=== PATIENT | female | born 1990 | race Hispanic/Latino ===

== ENCOUNTER 2016-12-22 08:04 | Inpatient (IN) | payer OTHER ==
[2016-12-22] MEDS ORDERED: Ondansetron HCl/PF 4 MG/2 ML Vial ONE (09:03)
[2016-12-22 09:14] LABS: #Eosinphils 0.1 thou/uL (0.0-0.7); #Lymphocytes 1.5 thou/uL (1.20-3.40); #Monocytes 0.4 thou/uL (0.11-0.59); #Neutrophils 8.8 thou/uL (1.40-6.50); %Basophils 0.1 % (0.0-1.0); %Eosinophils 0.6 % (0.0-10.0); %Lymphocytes 13.8 % (21.0-51.0); %Monocytes 3.7 % (0.0-10.0); Hematocrit 44.2 % (36.0-47.0); Red Blood Cell (RBC) Count 4.46 mill/uL (4.20-5.40); White Blood Cell (WBC) Count 10.7 thou/uL (4.8-10.8)
[2016-12-22 09:43] LABS: ALT (SGPT) 20 U/L (8-55); AST (SGOT) 17 U/L (5-34); Alkaline Phosphatase 123 U/L (40-150); Anion Gap 26 mmol/L (10-20); BUN (Urea Nitrogen) 15 mg/dL (7.0-18.7); Bilirubin, Total 0.4 mg/dL (0.2-1.2); Calc. Creatinine Clearance 0 mL/min (70-130); Calcium 9.7 mg/dL (7.8-10.44); Carbon Dioxide 11 mmol/L (22-29); Chloride 104 mmol/L (98-107); Estimated GFR-MDRD 69; Globulin 3.5 g/dL (2.4-3.5); Protein, Total 7.9 g/dL (6.0-8.3)
[2016-12-22] MEDS ORDERED: Insulin Regular 100 UNITS in Sodium Chloride 0.9% 100 ML IVPB SCH (10:30)
[2016-12-22] MEDS ORDERED: Insulin Regular 300 UNITS/3 ML VIAL ONE (10:31)
[2016-12-22 11:29] LABS: Bilirubin Negative (Negative); Blood, Urine Negative (Negative); Glucose, Urine (Dipstick) 500 mg/dL (Negative); Ketone, Urine > or equal to 80 mg/dL (Negative); Nitrite Negative (Negative); Protein, Urine (Dipstick) Negative (Neg-Trace); Urobilinogen 0.2 mg/dL (0.2-1.0)
[2016-12-22] MEDS ORDERED: CCU Electrolyte Replacement 1 EACH IVPB ONE (11:38)
[2016-12-22] MEDS ORDERED: Bisacodyl 5 MG TAB PO PRN (11:38)
[2016-12-22] MEDS ORDERED: Dextrose 5 %-0.45 % NaCl 1,000 ML IV PRN (11:38)
[2016-12-22] MEDS ORDERED: Ondansetron ODT 4 MG TAB PO PRN (11:38)
[2016-12-22] MEDS ORDERED: Sodium Chloride 0.9% 1,000 ML IV PRN ×4 (11:38)
[2016-12-22] MEDS ORDERED: NS 0.9% w/ 20 MEQ KCL 1,000 ML IV PRN ×2 (11:38)
[2016-12-22] MEDS ORDERED: D5 1/2 NS w/20 mEq KCL 1,000 ML IV PRN (11:38)
[2016-12-22] MEDS ORDERED: Ondansetron HCl/PF 4 MG/2 ML Vial IVP PRN (11:38)
[2016-12-22 12:28] LABS: Anion Gap 16 mmol/L (10-20); BUN (Urea Nitrogen) 12 mg/dL (7.0-18.7); Calc. Creatinine Clearance 0 mL/min (70-130); Calcium 8.7 mg/dL (7.8-10.44); Carbon Dioxide 18 mmol/L (22-29); Chloride 112 mmol/L (98-107); Estimated GFR-MDRD Greater than 90
[2016-12-22] MEDS ORDERED: CCU ELECTROLYTE REPLACEMENT PROTOCOL FS PRN (12:37)
[2016-12-22] MEDS ORDERED: Potassium Phosphate 12 MMOL in Sodium Chloride 0.9% 250 ML 250 ML IV PRN (12:37)
[2016-12-22] MEDS ORDERED: Potassium Chloride 20 MEQ TAB PO PRN (12:37)
[2016-12-22] MEDS ORDERED: Potassium Phosphate 15 MMOL in Sodium Chloride 0.9% 250 ML 250 ML IV PRN (12:37)
[2016-12-22] MEDS ORDERED: Magnesium Oxide 400 MG TAB PO PRN ×2 (12:37)
[2016-12-22] MEDS ORDERED: Potassium Phosphate 9 MMOL in Sodium Chloride 0.9% 100 ML IVPB PRN (12:37)
[2016-12-22] MEDS ORDERED: Potassium Chloride 40 MEQ in Sodium Chloride 0.9% 250 ML 250 ML IVPB PRN (12:37)
[2016-12-22] MEDS ORDERED: Potassium Chloride 40 MEQ in Premix Bag 1 BAG IVPB PRN (12:37)
[2016-12-22] MEDS ORDERED: Magnesium 2 GM/NS 0.9% 100 ML 2 GM in Premix Bag 1 BAG IVPB PRN (12:37)
--- NOTE | 2016-12-22 13:20 | HP ---
PRIMARY CARE PHYSICIAN: Rocky ledesma. CHIEF COMPLAINT: Nausea, vomiting, and hyperglycemia. PRIMARY CARE LABELING ASSOCIATE: Dr. Curry at [facility]. HISTORY OF PRESENT ILLNESS: This is a 26-year-old female with past medical history of diab etes mellitus type 1, insulin-dependent, with multiple admissions for DKA, though less frequently ov er the last couple of years. She reports that she has been taking her insulin as prescribed, 22 uni ts of Lantus per day and NovoLog 8 units before each meal. She reports that yesterday after eating some enchilada's, she started having abdominal pain, nausea, and vomiting. She vomited 3-4 times ye sterday, food and mucus, no bile or blood and this morning, she reports that her blood sugar was 500 and she had 1 more episode of vomiting. The patient presented to the emergency room and was found to have a blood sugar of 415 in the emergency room and was also tachycardic. The patient had 2 lite rs of normal saline bolused and then normal saline running at 500 mL per hour after that. She also had 7.5 units of Novolin R IV push and Zofran. The patient's blood sugars now down to the low 100s and she is feeling much better. No further abdominal pain, nausea or vomiting in the emergency room . PAST MEDICAL HISTORY: 1. Diabetes mellitus type 1, insulin-dependent. 2. Depression and anxiety. PAST SURGICAL HISTORY: None. ALLERGIES: No known drug allergies. MEDICATIONS: Lantus 22 units daily, and NovoLog 8 units before each meal. SOCIAL HISTORY: Patient denies tobacco, alcohol, or illicit drug use. FAMILY HISTORY: Diabetes, heart disease and hypertension. REVIEW OF SYSTEMS: Constitutional: No fevers, no chills, no weight changes. Eyes: No double visi on or blurred vision. ENT: No congestion, drainage or sore throat. Cardiovascular: No chest pain , palpitations or racing heart. Pulmonary: No coughing, wheezing or shortness of breath. Gastroin testinal: No diarrhea or constipation. See HPI for positives. Genitourinary: No dysuria or hemat uria. She has not noticed any change in her urine output recently. Musculoskeletal: No muscle ach es or joint pains. Skin: No rashes or other lesions noted. Neurologic: No numbness, tingling or focal weakness. PHYSICAL EXAMINATION: VITAL SIGNS: Blood pressure 102/66, pulse down to 101 after the fluids from 122 on presentation, re spirations 15, temperature 98.5, O2 sat 98% on room air. GENERAL: This is a well-developed, well-nourished female, in no apparent distress. HEENT: Pupils equal, round, and react to light. Oropharynx clear without lesions, erythema or exud ate. She does have moist mucous membranes now. HEART: Regular rate and rhythm, no murmurs, rubs or gallops. LUNGS: Clear to auscultation bilaterally, no wheezes, crackles or rhonchi. NECK: Soft, nontender to palpation, normoactive bowel sounds, no hepatosplenomegaly or other masses . EXTREMITIES: No clubbing, cyanosis or edema. SKIN: No rashes or other lesions noted. NEUROLOGIC: Cranial nerves intact and equal bilaterally. No facial droop. Deep tendon reflexes 2+ in all extremities and strength intact in all extremities. PSYCHIATRIC: Patient is alert and oriented x3. She does have a little bit of a flattened affect. LABORATORY DATA: CBC within normal limits. Complete metabolic panel was notable only for carbon di oxide of 11, anion gap of 26. Her glucose was 398 on a central venous check and now down to 138 per ipherally. Urinalysis had glucose and ketones, but no evidence of infection and her beta hydroxybut yrate was 6.12 in the blood. ASSESSMENT AND PLAN: 1. Diabetic ketoacidosis. The patient's hyperglycemia has resolved with initial insulin bolus, we will hold on insulin drip for now. The patient does state that she has been taking her insulin, so she may have her long-acting insulin still on board, thus this would be unusual for her to get as ac idotic with some insulin. We will check fingerstick blood sugars every hour and start insulin drip if she rebounds. Otherwise, we will give her NovoLog with meals as normal and restart her Lantus wh en she is eating. Patient has gotten a good fluid resuscitation in the emergency room, she may need a little bit more, but we will recheck her basic metabolic panel and keep giving fluids until her a nion gap acidosis resolves. 2. We will replace potassium as this is likely to drop with only being 3.8 initially to prevent hyp okalemia. 3. Gastrointestinal prophylaxis. Put the patient on Pepcid while she remains in the hospital. 4. Deep venous thrombosis prophylaxis. Put the patient on sequential compression devices and TEDs while in bed. 5. CODE STATUS: Patient is FULL CODE. Should she be incapacitated, she states that her medical de cision maker will be her mother, Briana Valenzuela.
[2016-12-22] MEDS: NS 0.9% w/ 20 MEQ KCL 1,000 ML IV SCH ×2 (13:50→15:28)
[2016-12-22 14:03] VITALS: BMI 30.6
[2016-12-22 15:55] LABS: Anion Gap 15 mmol/L (10-20); BUN (Urea Nitrogen) 8 mg/dL (7.0-18.7); Calc. Creatinine Clearance 150 mL/min (70-130); Calcium 7.8 mg/dL (7.8-10.44); Carbon Dioxide 16 mmol/L (22-29); Chloride 114 mmol/L (98-107); Estimated GFR-MDRD Greater than 90
[2016-12-22] MEDS ORDERED: Dextrose 50% Abboject 50 ML SYRINGE IVP PRN (16:12)
[2016-12-22] MEDS ORDERED: Dextrose 5% in Water 1,000 ML IV PRN (16:12)
[2016-12-22] MEDS ORDERED: HumaLOG 300 UNITS/3 ML VIAL SC PRN (16:12)
[2016-12-22] MEDS ORDERED: Acetaminophen 500 MG TAB PO PRN (18:01)
[2016-12-22 20:11] LABS: Anion Gap 15 mmol/L (10-20); BUN (Urea Nitrogen) 7 mg/dL (7.0-18.7); Calc. Creatinine Clearance 124 mL/min (70-130); Calcium 8.5 mg/dL (7.8-10.44); Carbon Dioxide 19 mmol/L (22-29); Chloride 107 mmol/L (98-107); Estimated GFR-MDRD 87
[2016-12-22] MEDS: Insulin Detemir 100 UNITS/ML 8 UNITS in Pre-Filled Syringe 1 EACH SC SCH (20:28)
[2016-12-22] MEDS: Docusate 100 MG CAP PO SCH (20:28)
[2016-12-22] MEDS: Famotidine 20 MG TAB PO SCH (20:28)
[2016-12-22] MEDS ORDERED: FLU VACC QS2017-18 36 mo. & older 0.5 ML SYRINGE IM ONE (21:00)
[2016-12-23 04:34] LABS: #Basophils 0.1 thou/uL (0.0-0.2); #Eosinphils 0.2 thou/uL (0.0-0.7); #Lymphocytes 2.7 thou/uL (1.20-3.40); #Monocytes 0.6 thou/uL (0.11-0.59); #Neutrophils 4.8 thou/uL (1.40-6.50); %Basophils 0.9 % (0.0-1.0); %Eosinophils 1.9 % (0.0-10.0); %Lymphocytes 32.6 % (21.0-51.0); %Monocytes 7.2 % (0.0-10.0); Hematocrit 38.4 % (36.0-47.0); Mean Platelet Volume 9.2 fL (7.4-10.4); Red Blood Cell (RBC) Count 3.89 mill/uL (4.20-5.40); White Blood Cell (WBC) Count 8.4 thou/uL (4.8-10.8)
[2016-12-23 05:02] LABS: Anion Gap 14 mmol/L (10-20); BUN (Urea Nitrogen) 7 mg/dL (7.0-18.7); Calc. Creatinine Clearance 143 mL/min (70-130); Calcium 8.5 mg/dL (7.8-10.44); Carbon Dioxide 19 mmol/L (22-29); Chloride 106 mmol/L (98-107); Estimated GFR-MDRD Greater than 90
[2016-12-23] MEDS: HumaLOG 300 UNITS/3 ML VIAL SC PRN ×2 (05:44→11:55)
[2016-12-23] MEDS: Docusate 100 MG CAP PO SCH (08:05)
[2016-12-23] MEDS: Insulin Detemir 100 UNITS/ML 8 UNITS in Pre-Filled Syringe 1 EACH SC SCH (08:06)
[2016-12-23] MEDS: Famotidine 20 MG TAB PO SCH (08:06)
--- NOTE | 2016-12-23 09:49 | PDOC.PN ---
- Subjective Encounter Start Date: 12/23/16 Encounter Start Time: 09:40 Subjective: Patient without complaint this AM. No more N/V. No abd pain. BS normal. -: Eating well. Ready to go home. Has insulin at home. - Objective Resuscitation Status: Resuscitation Status FULL:Full Resuscitation MAR Reviewed: Yes Vital Signs & Weight: Vital Signs (12 hours) Temp Pulse Resp BP Pulse Ox 12/23/16 08:00 98.8 F 78 16 98 12/23/16 07:06 98.8 F 78 16 97/63 98 12/23/16 04:00 98.6 F 79 18 110/69 97 12/23/16 00:00 98.4 F 76 16 98/58 L 96 Weight Weight 163 lb 2 oz I&O: 12/22/16 12/23/16 12/24/16 06:59 06:59 06:59 Intake Total 1320 Output Total 1300 Balance 20 Result Diagrams: 12/23/16 03:58 12/23/16 03:58 Additional Labs: Accuchecks 12/23/16 12/22/16 12/22/16 05:41 20:28 16:10 POC Glucose 170 H 266 H 104 12/22/16 12/22/16 12/22/16 15:05 13:50 12:23 POC Glucose 108 99 94 12/22/16 11:12 POC Glucose 138 H Phys Exam - Physical Examination Constitutional: NAD HEENT: moist MMs Respiratory: no wheezing, no rales, no rhonchi, clear to auscultation bilateral Cardiovascular: RRR, no significant murmur Gastrointestinal: soft, non-tender, no distention, positive bowel sounds Neurological: non-focal, moves all 4 limbs Psychiatric: A&O x 3 Deviation from normal: mildly flat affect Dx/Plan (1) Diabetic keto-acidosis Code(s): E13.10 - OTH DIABETES MELLITUS WITH KETOACIDOSIS WITHOUT COMA Status : Resolved Comment: Blood sugars normalized this AM. On home insulin. Gap resolved. Eating well. (2) Diabetes mellitus type 1 Status: Chronic - Plan cont current plan of skilled nursing today * . - Discharge Day Encounter end time: 09:55
[2016-12-23 12:26] VITALS: BP 122/74; TEMP 98.6
--- NOTE | 2016-12-23 14:37 | DIS ---
PRIMARY CARE PHYSICIAN: Michael Damian. PRIMARY MANAGER OF CASE: Dr. Curry. DIAGNOSES ON ADMISSION: 1. Diabetic ketoacidosis. 2. Diabetes mellitus type 1, insulin-dependent. DIAGNOSES ON DISCHARGE: 1. Diabetic ketoacidosis, resolved. 2. Diabetes mellitus type 1, insulin-dependent. CONSULTATIONS: None. PROCEDURES: None. SUMMARY OF HOSPITAL COURSE: This is a 26-year-old female with a history of diabetes mellit type 1, admitted multiple times for DKA several years ago, but has not had a lot of episodes rece ntly. She ate some enchiladas the day before admission, started having abdominal pain, nausea, and vomiting. The day of admission, she had nausea and vomiting one more time and noted to have blood s ugars in the 500s, came into the emergency room. Her blood sugars were running in the 400s in the e mergency room, she was tachycardic and acidotic. She was given multiple liters of fluid in the moody gency room along with some IV push and insulin which returned her blood sugar immediately to normal. The patient was put in the hospital overnight. She had IV fluids and potassium. She was able to eat and was transitioned to her home insulin with normal blood sugars this morning, feeling well, no abdominal pain or tenderness on exam and no more nausea or vomiting. She is being discharged home. DISCHARGE MANAGEMENT: Discharged home. Follow up with primary care doctor in 1 week. ACTIVITY: As tolerated. DIET: Diabetic diet. DISCHARGE MEDICATIONS: Resume home medications. 1. NovoLog FlexPen 8 units 3 times a day with meals. 2. Lantus 22 units subcu daily. 3. Risperidone 1 mg at night as needed. 4. Wellbutrin-XL 300 mg every morning. 5. Ambien 5 mg at night as needed. 6. Prozac 20 mg daily.
== END 2016-12-23 15:32 | disposition home or self-care (01) | DRG 639 ==
LOC: ERS 08:04 → IMCU/EMU 10:59
PROVIDERS: ADMIT Emergency Medicine; ATTEND Emergency Medicine
DX: E10.10 Type 1 diabetes mellitus with ketoacidosis without coma (principal); F32.9 Major depressive disorder, single episode, unspecified; Z79.4 Long term (current) use of insulin; F41.9 Anxiety disorder, unspecified
CPT/HCPCS: 36415; 36416; 80048; 80053; 81003; 82010; 85025; 93005; 96361; 96374; 96375; J1815; J2405; J7050

== ENCOUNTER 2017-03-20 15:03 | Inpatient (IN) | payer OTHER ==
[2017-03-20 15:45] LABS: #Basophils 0.1 thou/uL (0.0-0.2); #Eosinphils 0.1 thou/uL (0.0-0.7); #Lymphocytes 1.1 thou/uL (1.20-3.40); #Neutrophils 15.5 thou/uL (1.40-6.50); %Basophils 0.3 % (0.0-1.0); %Eosinophils 0.4 % (0.0-10.0); %Lymphocytes 6.4 % (21.0-51.0); %Monocytes 5.7 % (0.0-10.0); %Neutrophils 87.1 % (42.0-75.0); Hemoglobin 15.4 g/dL (12.0-16.0); Mean Corpuscular HGB CONC 34.1 g/dL (32.0-36.0); Mean Corpuscular Hemoglobin 33.3 pg (27.0-31.0); Mean Corpuscular Volume 97.8 fl (81.0-99.0); Mean Platelet Volume 9.1 fL (7.4-10.4); Platelet Count 313 thou/uL (130-400); RBC Distribution Width 11.8 % (11.5-14.5); Red Blood Cell (RBC) Count 4.61 mill/uL (4.20-5.40); White Blood Cell (WBC) Count 17.8 thou/uL (4.8-10.8)
[2017-03-20 15:57] LABS: Bilirubin Negative (Negative); Blood, Urine Negative (Negative); Clarity CLEAR (Clear); Glucose, Urine (Dipstick) >=1000 mg/dL (Negative); Leukocyte Trace (Negative); Nitrite Negative (Negative); Protein, Urine (Dipstick) 30 mg/dL (Neg-Trace); Specific Gravity, Urine 1.029 (1.002-1.036); Urobilinogen 0.2 mg/dL (0.2-1.0)
[2017-03-20 15:58] LABS: Bacteria/HPF Rare-Few HPF (None Seen); Hyaline Casts/LPF 4-6 HYALINE CAST LPF (0-3 Hyaline); Pathc Cast-AUWi Flag 0.27 (0-2.49); Pregnancy Test - Urine (BHCG) Negative (Negative); Pregu Control Background? CLEAR/WHITE (CLR/WHITE); Pregu Control Bar Appear? YES (CONTROL BAR); RBC/HPF 0-3 HPF (0-3); Specific Gravity 1.029 (1.002-1.036); Squamous Epithelial 0-3 HPF (0-3)
[2017-03-20 16:10] LABS: ALT (SGPT) 16 U/L (8-55); AST (SGOT) 15 U/L (5-34); Albumin 4.8 g/dL (3.5-5.0); Alkaline Phosphatase 123 U/L (40-150); BUN (Urea Nitrogen) 11 mg/dL (7.0-18.7); Bilirubin, Total 0.6 mg/dL (0.2-1.2); Calc. Creatinine Clearance 0 mL/min (70-130); Calcium 9.5 mg/dL (7.8-10.44); Chloride 109 mmol/L (98-107); Estimated GFR-MDRD 47; Globulin 3.7 g/dL (2.4-3.5); Glucose 252 mg/dL (70-105); Potassium 3.3 mmol/L (3.5-5.1); Protein, Total 8.5 g/dL (6.0-8.3); Sodium 137 mmol/L (136-145)
[2017-03-20 16:14] LABS: CKMB 0.4 ng/mL (0-6.6); Carbon Dioxide Less than 8 mmol/L (22-29); Troponin I 0.014 ng/mL (< 0.028)
[2017-03-20] MEDS ORDERED: Ondansetron HCl/PF 4 MG/2 ML Vial ONE (16:46)
[2017-03-20] MEDS ORDERED: Insulin Regular 100 units/100 ml in NS IVPB SCH (17:00)
[2017-03-20] MEDS ORDERED: CCU Electrolyte Replacement 1 EACH IVPB ONE (17:01)
[2017-03-20] MEDS ORDERED: Acetaminophen 325 MG TAB PO PRN (17:01)
[2017-03-20] MEDS ORDERED: Sodium Chloride 0.9% 1,000 ML IV PRN ×4 (17:01)
[2017-03-20] MEDS ORDERED: NS 0.9% w/ 20 MEQ KCL 1,000 ML IV PRN ×2 (17:01)
[2017-03-20] MEDS ORDERED: Acetaminophen 650 MG Suppository PR PRN (17:01)
[2017-03-20] MEDS ORDERED: Dextrose 5 %-0.45 % NaCl 1,000 ML IV PRN (17:01)
[2017-03-20] MEDS ORDERED: Ondansetron HCl/PF 4 MG/2 ML Vial IVP PRN (17:01)
[2017-03-20] MEDS ORDERED: Potassium Chloride 40 MEQ in Sodium Chloride 0.9% 250 ML 250 ML IVPB PRN (17:11)
[2017-03-20] MEDS ORDERED: Magnesium Oxide 400 MG TAB PO PRN ×2 (17:11)
[2017-03-20] MEDS ORDERED: CCU ELECTROLYTE REPLACEMENT PROTOCOL FS PRN (17:11)
[2017-03-20] MEDS ORDERED: Magnesium 2 GM/NS 0.9% 100 ML 2 GM in Premix Bag 1 BAG IVPB PRN (17:11)
[2017-03-20] MEDS ORDERED: Potassium Phosphate 9 MMOL in Sodium Chloride 0.9% 100 ML IVPB PRN (17:11)
[2017-03-20] MEDS ORDERED: Potassium Chloride 20 MEQ TAB PO PRN (17:11)
[2017-03-20] MEDS ORDERED: Potassium Phosphate 15 MMOL in Sodium Chloride 0.9% 250 ML 250 ML IV PRN (17:11)
[2017-03-20] MEDS ORDERED: Potassium Chloride 40 MEQ in Premix Bag 1 BAG IVPB PRN (17:11)
[2017-03-20] MEDS ORDERED: Potassium Phosphate 12 MMOL in Sodium Chloride 0.9% 250 ML 250 ML IV PRN (17:11)
[2017-03-20] MEDS ORDERED: cefTRIAXone\\ROCEPHIN 1 GM in Sodium Chloride 0.9% 100 ML IVPB SCH (17:30)
[2017-03-20 17:48] LABS: Anion Gap 24 mmol/L (10-20); BUN (Urea Nitrogen) 11 mg/dL (7.0-18.7); Calc. Creatinine Clearance 0 mL/min (70-130); Calcium 9.2 mg/dL (7.8-10.44); Chloride 109 mmol/L (98-107); Estimated GFR-MDRD 57; Glucose 221 mg/dL (70-105); Potassium 3.6 mmol/L (3.5-5.1); Sodium 137 mmol/L (136-145)
--- NOTE | 2017-03-20 17:49 | HP ---
PRIMARY CARE PHYSICIAN: Torito Singh M.D. CHIEF COMPLAINT: Vomiting and abdominal pain. HISTORY OF PRESENT ILLNESS: Ms. Valenzuela is a pleasant 26-year-old lady who was seen at [facility] on 03/20/2017. She has a history of diabetes mellitus type 1 and takes insulin at home. She reports that she is compliant with her insulin. She reports that she was doing well u ntil yesterday. Today morning, she developed nausea and vomiting. She also reports pain in the uppe r abdomen, dull, nonradiating, patient is unable to rate the pain, and she is unable to recall any as sociated symptoms other than nausea and vomiting. She denies fevers or chills. She denies chest favian n and shortness of breath. She also denies dysuria. PAST MEDICAL HISTORY: Significant for diabetes mellitus type 1, depression and anxiety. PAST SURGICAL HISTORY: None. ALLERGIES: No known drug allergies. MEDICATIONS: The patient is unsure regarding some of her medications, but appears to be taking Lantu s insulin 22 units daily and NovoLog insulin 8 units before each meal. SOCIAL HISTORY: The patient denies tobacco use, alcohol use or recreational drug use. FAMILY HISTORY: Significant for diabetes mellitus in her paternal grandparents. PHYSICAL EXAMINATION: GENERAL: On examination, Ms. Valenzuela is awake and alert, not in acute distress. VITAL SIGNS: Temperature is 99.7 degrees Fahrenheit, blood pressure is 136/90, pulse is 161. She is breathing at rate of 18 and saturating 99% on room air. EYES: No scleral icterus. No conjunctival pallor. ENT: Dry mucosal membranes, no oropharyngeal erythema or exudates. NECK: Supple, nontender, normal range of movement. Trachea is midline. RESPIRATORY: Accessory muscles of breathing are not active. Chest wall movements are symmetric bila terally. LUNGS: Clear to auscultation without wheeze, rhonchi or crepitations. CARDIOVASCULAR: S1 and S2 are heard, tachycardic and regular. Peripheral pulses palpable. No carot id bruit, no pericardial rub. ABDOMEN: Soft, nontender, bowel sounds heard, no hepatomegaly, no splenomegaly. NEUROLOGIC: Cranial nerves II-XII are intact. Deep tendon reflexes are 2+. MUSCULOSKELETAL: Power is 5/5 in all 4 extremities. SKIN: No rashes or subcutaneous nodules. LYMPHATIC: No cervical lymphadenopathy. PSYCHIATRIC: Normal mood, normal affect, patient is oriented to person, place, and time. IMAGING DATA AND LABORATORY DATA: Ms. Valenzuela's labs and investigations were reviewed. She had an electrocardiogram done, which shows sinus tachycardia. She has leukocytosis with 17,800 white cells, of which 87% are neutrophils, normal hemoglobin, normal platelet count, normal sodium of 137, decrea sed potassium of 3.3, elevated chloride of 109, carbon dioxide less than 8, creatinine elevated at 1. 35, unremarkable liver profile, elevated beta hydroxybutyrate of 5.99. Urinalysis positive for prote in, glucose, ketones, and trace leukocyte esterase. Urine test is negative. ASSESSMENT AND PLAN: Ms. Valenzuela is a pleasant 26-year-old lady who was seen at [facility] on 03/20/2017. Her problem list includes: 1. Diabetic ketoacidosis: She is presenting with diabetic ketoacidosis. She will be admitted to [facility] and treated with intravenous fluids, electrolyte replacement and intravenous insulin. Mayelin ology unclear at this time. She reports that she is compliant with her insulin. It is possible that this is triggered by urinary tract infection. We will also get chest x-ray to rule out any pulmonar y infection. The patient has been started on ceftriaxone, which I will continue. 2. Urinary tract infection: Suspected, although urinalysis is positive only for small amount of april kocyte esterase. We will continue her on ceftriaxone. 3. Acute kidney injury: Likely secondary to diabetic ketoacidosis. Recheck creatinine. 4. Hypokalemia: Her electrolytes will be checked and replaced per DKA protocol. 5. Anxiety and depression: Her home medications can be resumed once clarified. Many thanks for allowing me to participate in your patient's care. Please feel free to contact me wi th any questions or concerns. LEVEL OF RISK: Moderate. LEVEL OF COMPLEXITY: Moderate.
[2017-03-20 18:01] LABS: Magnesium 1.9 mg/dL (1.6-2.6)
[2017-03-20 18:02] LABS: Carbon Dioxide 8 mmol/L (22-29)
--- NOTE | 2017-03-20 18:07 | RAD ---
TWO VIEW CHEST: 03/20/17 HISTORY: Cough. Assess for lung infiltrates. COMPARISON: 08/12/12 The lung pierre are clear. Heart and mediastinum are unremarkable. IMPRESSION: No acute finding. POS: [facility]
[2017-03-20] MEDS: D5 1/2 NS w/20 mEq KCL 1,000 ML IV PRN (21:27)
[2017-03-20 21:33] VITALS: BMI 26.1
[2017-03-20 21:52] LABS: Anion Gap 24 mmol/L (10-20); BUN (Urea Nitrogen) 10 mg/dL (7.0-18.7); Calc. Creatinine Clearance 79 mL/min (70-130); Calcium 9.1 mg/dL (7.8-10.44); Chloride 109 mmol/L (98-107); Estimated GFR-MDRD 62; Glucose 292 mg/dL (70-105); Potassium 3.2 mmol/L (3.5-5.1); Sodium 138 mmol/L (136-145)
[2017-03-20 21:55] LABS: Carbon Dioxide 8 mmol/L (22-29)
[2017-03-21] MEDS: D5 1/2 NS w/20 mEq KCL 1,000 ML IV PRN ×2 (01:27→05:54)
[2017-03-21 01:30] LABS: Anion Gap 14 mmol/L (10-20); BUN (Urea Nitrogen) 9 mg/dL (7.0-18.7); Calc. Creatinine Clearance 90 mL/min (70-130); Calcium 8.7 mg/dL (7.8-10.44); Carbon Dioxide 14 mmol/L (22-29); Chloride 115 mmol/L (98-107); Estimated GFR-MDRD 72; Glucose 153 mg/dL (70-105); Potassium 3.6 mmol/L (3.5-5.1); Sodium 139 mmol/L (136-145)
[2017-03-21 04:41] LABS: #Basophils 0.1 thou/uL (0.0-0.2); #Eosinphils 0.1 thou/uL (0.0-0.7); #Monocytes 1.3 thou/uL (0.11-0.59); #Neutrophils 8.2 thou/uL (1.40-6.50); %Basophils 0.7 % (0.0-1.0); %Eosinophils 0.9 % (0.0-10.0); %Lymphocytes 23.8 % (21.0-51.0); %Monocytes 10.5 % (0.0-10.0); %Neutrophils 64.1 % (42.0-75.0); Hemoglobin 12.5 g/dL (12.0-16.0); Mean Corpuscular HGB CONC 34.2 g/dL (32.0-36.0); Mean Corpuscular Hemoglobin 33.5 pg (27.0-31.0); Mean Corpuscular Volume 97.9 fl (81.0-99.0); Mean Platelet Volume 9.9 fL (7.4-10.4); Platelet Count 243 thou/uL (130-400); RBC Distribution Width 11.8 % (11.5-14.5); Red Blood Cell (RBC) Count 3.72 mill/uL (4.20-5.40); White Blood Cell (WBC) Count 12.7 thou/uL (4.8-10.8)
[2017-03-21 04:51] LABS: Anion Gap 13 mmol/L (10-20); BUN (Urea Nitrogen) 8 mg/dL (7.0-18.7); Calc. Creatinine Clearance 102 mL/min (70-130); Calcium 8.6 mg/dL (7.8-10.44); Carbon Dioxide 13 mmol/L (22-29); Chloride 115 mmol/L (98-107); Estimated GFR-MDRD 83; Glucose 155 mg/dL (70-105); Sodium 137 mmol/L (136-145)
[2017-03-21] MEDS: Enoxaparin Sodium 40 MG/0.4 ML SYRINGE SC SCH (09:41)
[2017-03-21] MEDS: Insulin Detemir 100 UNITS/ML 22 UNITS in Pre-Filled Syringe 1 EACH SC SCH (09:42)
[2017-03-21] MEDS ORDERED: Eucerin (Mineral Oil/Petrolatum,White) 30 gm Jar TOP PRN (09:43)
[2017-03-21] MEDS ORDERED: Senokot 8.6 MG TAB PO PRN (09:43)
[2017-03-21] MEDS ORDERED: Ondansetron ODT 4 MG TAB PO PRN (09:43)
[2017-03-21] MEDS ORDERED: Milk Of Magnesia 30 ML UDCUP PO PRN (09:43)
[2017-03-21] MEDS ORDERED: Sodium Chloride 0.65% Nasal 44 ML BOT EA NARE PRN (09:43)
[2017-03-21] MEDS ORDERED: Dextrose 5% in Water 1,000 ML IV PRN (09:43)
[2017-03-21] MEDS ORDERED: Artificial Tears 18 DROP/0.9 ML EA EYE PRN (09:43)
[2017-03-21] MEDS ORDERED: Dextrose 50% Abboject 50 ML SYRINGE SLOW IVP PRN (09:43)
[2017-03-21] MEDS ORDERED: Loperamide HCl 2 MG CAP PO PRN (09:43)
[2017-03-21] MEDS ORDERED: Loratadine 10 MG TAB PO PRN (09:43)
[2017-03-21] MEDS ORDERED: Chloraseptic Spray 180 ml Bottle PO PRN (09:43)
[2017-03-21] MEDS ORDERED: Diabetic Tussin 200 MG/10 ML UDCUP PO PRN (09:43)
[2017-03-21] MEDS ORDERED: hydrALAZINE 20 MG/ML VIAL SLOW IVP PRN (09:43)
[2017-03-21] MEDS ORDERED: Temazepam 15 MG CAP PO PRN (09:43)
[2017-03-21] MEDS ORDERED: HYDROcodone/Acetaminophen 5/325 mg Tablet PO PRN (09:43)
[2017-03-21] MEDS ORDERED: Mag-Al 1200 mg/1200 mg/30 ML UDCUP PO PRN (09:43)
--- NOTE | 2017-03-21 09:47 | PDOC.PN ---
- Subjective Encounter Start Date: 03/21/17 Encounter Start Time: 09:10 -: old records requested/rev Patient seen and examined. No new complaints. No overnight events no nausea and vomiting, doing well, no dyspnea, no abdominal pain - Objective MAR Reviewed: Yes Vital Signs & Weight: Vital Signs (12 hours) Temp Pulse Resp BP Pulse Ox 03/21/17 07:57 98.8 F 99 21 H 123/72 99 03/21/17 04:00 98.5 F 103 H 16 116/74 99 03/21/17 00:00 98.5 F 103 H 16 116/74 99 03/20/17 23:34 98.7 F 120 H 16 98 I&O: 03/20/17 03/21/17 03/22/17 06:59 06:59 06:59 Intake Total 2389 252 Output Total 900 Balance 1489 252 Result Diagrams: 03/21/17 03:33 03/21/17 03:33 Additional Labs: Accuchecks 03/21/17 03/21/17 03/21/17 08:59 08:03 07:07 POC Glucose 234 H 198 H 188 H 03/21/17 03/21/17 03/21/17 06:04 05:07 04:20 POC Glucose 144 H 132 H 147 H 03/21/17 03/21/17 03/21/17 03:06 02:09 01:23 POC Glucose 127 H 100 151 H 03/21/17 03/20/17 03/20/17 00:17 23:02 22:00 POC Glucose 171 H 225 H 235 H 03/20/17 21:05 POC Glucose 243 H Phys Exam - Physical Examination Constitutional: NAD HEENT: PERRLA, moist MMs, sclera anicteric Neck: no JVD, supple Respiratory: no wheezing, no rales, no rhonchi Cardiovascular: RRR, no significant murmur, no rub Gastrointestinal: soft, non-tender, no distention, positive bowel sounds Musculoskeletal: no edema, pulses present Neurological: non-focal, normal sensation, moves all 4 limbs Lymphatic: no nodes Psychiatric: normal affect, A&O x 3 Skin: no rash, normal turgor Dx/Plan (1) Abnormal blood electrolyte level Code(s): E87.8 - OTH DISORDERS OF ELECTROLYTE AND FLUID BALANCE, NEC Status: Resolved (2) Acute renal failure Status: Resolved (3) DKA, type 1 Code(s): E10.10 - TYPE 1 DIABETES MELLITUS WITH KETOACIDOSIS WITHOUT COMA Status: Resolved (4) Dehydration Code(s): E86.0 - DEHYDRATION Status: Resolved (5) Anxiety and depression Code(s): F41.8 - OTHER SPECIFIED ANXIETY DISORDERS Status: Chronic (6) Diabetes mellitus type 1 Status: Chronic - Plan cont current plan of care, continue antibiotics * will start her home medication for diabetes * will DC insulin drip * continue slow IVF today * start diabetic diet * repeat labs tomorrow * transfer to medical * medication reviewed as below * symptomatic treatment. Review of Systems - Review of Systems ENT: negative: Ear Pain, Ear Discharge, Nose Pain, Nose Discharge, Nose Congestion, Mouth Pain, Mouth Swelling, Throat Pain, Throat Swelling, Other Respiratory: negative: Cough, Dry, Shortness of Breath, Hemoptysis, SOB with Excertion, Pleuritic Pain, Sputum, Wheezing Cardiovascular: negative: chest pain, palpitations, orthopnea, paroxysmal nocturnal dyspnea, edema, light headedness, other Gastrointestinal: negative: Nausea, Vomiting, Abdominal Pain, Diarrhea, Constipation, Melena, Hematochezia, Other Genitourinary: negative: Dysuria, Frequency, Incontinence, Hematuria, Retention , Other Musculoskeletal: negative: Neck Pain, Shoulder Pain, Arm Pain, Back Pain, Hand Pain, Leg Pain, Foot Pain, Other Skin: negative: Rash, Lesions, Juanito, Bruising, Other - Medications/Allergies Allergies/Adverse Reactions: Allergies Allergy/AdvReac Type Severity Reaction Status Date / Time No Known Drug Allergies Allergy Verified 07/28/13 22:11 Medications: Current Medications Acetaminophen (Tylenol) 650 mg PO Q4H PRN PRN Reason: Headache/Fever or Pain Hydrocodone Bitart/Acetaminophen ([place] 5/325) 1 tab PO Q4H PRN PRN Reason: Moderate Pain (4-6) Al Hydroxide/Mg Hydroxide (Maalox) 15 ml PO Q4H PRN PRN Reason: Heartburn or Indigestion Artificial Tears (Tears Naturale) 0 drop EA EYE PRN PRN PRN Reason: Dry Eyes Dextrose/Water (Dextrose 50%) 25 gm SLOW IVP PRN PRN PRN Reason: Hypoglycemia Enoxaparin Sodium (Lovenox) 40 mg SC 0900 [facility] Last Admin: 03/21/17 09:41 Dose: 40 mg Famotidine (Pepcid) 20 mg PO BID [facility] Glucagon (Glucagon) 1 mg IM PRN PRN PRN Reason: Hypoglycemia Guaifenesin (Robitussin Sf) 200 mg PO Q4H PRN PRN Reason: Cough Hydralazine HCl (Apresoline) 10 mg SLOW IVP Q4H PRN PRN Reason: Systolic BP > 180 Ceftriaxone Sodium 1 gm/ (Syringe 0.4 ml/ Sterile Water) 10 mls @ 120 mls/hr SLOW IVP 1700 [facility] Insulin Detemir 22 units/ (Miscellaneous Medication) 0.22 mls @ 0 mls/hr SC QAM [facility] Last Admin: 03/21/17 09:42 Dose: 0.22 mls Potassium Chloride/Sodium Chloride (1/2 Ns W/Kcl 20 Meq) 1,000 mls @ 100 mls/ hr IV .Q10H [facility] Dextrose/Water (D5w) 1,000 mls @ 0 mls/hr IV .Q0M PRN; As Directed PRN Reason: Hypoglycemia Insulin Human Lispro (Humalog) 8 units SC TID-WM [facility]IZABETH Insulin Human Lispro (Humalog) 0 units SC .MODERATE SLIDING SC PRN PRN Reason: Moderate Correctional Scale Insulin Human Lispro (Humalog) 0 units SC .BEDTIME SLIDING SC PRN PRN Reason: Bedtime Correctional Scale Loperamide HCl (Imodium) 2 mg PO PRN PRN PRN Reason: Diarrhea/Loose Stools Loratadine (Claritin) 10 mg PO DAILYPRN PRN PRN Reason: Sinus Symptoms Magnesium Hydroxide (Milk Of Magnesium) 30 ml PO DAILYPRN PRN PRN Reason: Constipation Mineral Oil/White Petrolatum (Eucerin Cream) 0 gm TOP BIDPRN PRN PRN Reason: Dry Skin Ondansetron HCl (Zofran Odt) 4 mg PO Q6H PRN PRN Reason: Nausea/Vomiting Phenol (Chloraseptic [place] 180 Ml Bot) 0 ml PO PRN PRN PRN Reason: Sore Throat Senna (Senokot) 2 tab PO HSPRN PRN PRN Reason: Constipation Sodium Chloride ([place] Nasal [place] 0.65%) 0 ml EA NARE QIDPRN PRN PRN Reason: Nasal Congestion Temazepam (Restoril) 15 mg PO HSPRN PRN PRN Reason: Insomnia
[2017-03-21] MEDS: HumaLOG 300 UNITS/3 ML VIAL SC SCH ×3 (11:59→21:24)
[2017-03-21] MEDS: 1/2 NS w/KCL 20 mEq 1,000 ML IV SCH ×2 (13:27→23:00)
[2017-03-21] MEDS: cefTRIAXone\\ROCEPHIN 1 GM, Syringe 0.4 ML in Sterile Water 9.6 ML SLOW IVP SCH (17:14)
[2017-03-21] MEDS: Famotidine 20 MG TAB PO SCH (21:19)
[2017-03-21] MEDS: HumaLOG 300 UNITS/3 ML VIAL SC PRN (21:25)
[2017-03-22 05:51] LABS: #Basophils 0.1 thou/uL (0.0-0.2); #Eosinphils 0.1 thou/uL (0.0-0.7); #Lymphocytes 1.7 thou/uL (1.20-3.40); #Monocytes 0.6 thou/uL (0.11-0.59); #Neutrophils 5.2 thou/uL (1.40-6.50); %Basophils 0.8 % (0.0-1.0); %Eosinophils 0.8 % (0.0-10.0); %Lymphocytes 22.9 % (21.0-51.0); %Monocytes 7.2 % (0.0-10.0); %Neutrophils 68.3 % (42.0-75.0); Mean Corpuscular HGB CONC 33.6 g/dL (32.0-36.0); Mean Corpuscular Hemoglobin 33.1 pg (27.0-31.0); Mean Corpuscular Volume 98.5 fl (81.0-99.0); Platelet Count 220 thou/uL (130-400); RBC Distribution Width 11.7 % (11.5-14.5); Red Blood Cell (RBC) Count 3.62 mill/uL (4.20-5.40); White Blood Cell (WBC) Count 7.6 thou/uL (4.8-10.8)
[2017-03-22] MEDS: 1/2 NS w/KCL 20 mEq 1,000 ML IV SCH ×3 (05:54→21:23)
[2017-03-22] MEDS: HumaLOG 300 UNITS/3 ML VIAL SC PRN ×2 (05:54→21:25)
[2017-03-22 06:54] LABS: Anion Gap 12 mmol/L (10-20); BUN (Urea Nitrogen) 6 mg/dL (7.0-18.7); Calc. Creatinine Clearance 153 mL/min (70-130); Calcium 8.6 mg/dL (7.8-10.44); Carbon Dioxide 23 mmol/L (22-29); Cardiac Risk 4.8 (Less than 4.5); Chloride 107 mmol/L (98-107); Cholesterol 157 mg/dl (< 200 Desired); Estimated GFR-MDRD Greater than 90; Glucose 224 mg/dL (70-105); HDL Cholesterol 33 mg/dL (>60 Neg Risk); LDL Cholesterol, Calculated 113 mg/dL; Magnesium 1.5 mg/dL (1.6-2.6); Phosphorus 2.8 mg/dL (2.3-4.7); Potassium 3.4 mmol/L (3.5-5.1); Sodium 139 mmol/L (136-145); Triglycerides 53 mg/dL (Less than 150)
[2017-03-22] MEDS: Famotidine 20 MG TAB PO SCH ×2 (08:44→21:11)
[2017-03-22] MEDS: Enoxaparin Sodium 40 MG/0.4 ML SYRINGE SC SCH (08:44)
[2017-03-22] MEDS: Insulin Detemir 100 UNITS/ML 22 UNITS in Pre-Filled Syringe 1 EACH SC SCH (08:44)
[2017-03-22] MEDS: HumaLOG 300 UNITS/3 ML VIAL SC SCH ×3 (08:45→17:34)
[2017-03-22] MEDS ORDERED: Potassium Chloride 20 MEQ TAB PO SCH (09:45)
[2017-03-22] MEDS ORDERED: Magnesium 2 GM/NS 0.9% 100 ML 2 GM in Premix Bag 1 BAG IVPB SCH (10:00)
[2017-03-22] MEDS: cefTRIAXone\\ROCEPHIN 1 GM, Syringe 0.4 ML in Sterile Water 9.6 ML SLOW IVP SCH (17:32)
--- NOTE | 2017-03-22 21:50 | PDOC.PN ---
- Subjective Encounter Start Date: 03/22/17 Encounter Start Time: 13:30 Patient seen and examined. No overnight events. Feels gen weak with low grade fever - Objective MAR Reviewed: Yes Vital Signs & Weight: Vital Signs (12 hours) Temp Pulse Resp BP Pulse Ox 03/22/17 16:55 99.0 F 120 H 18 125/82 98 03/22/17 11:33 99.9 F H 105 H 16 127/86 96 Weight Weight 148 lb I&O: 03/21/17 03/22/17 03/23/17 06:59 06:59 06:59 Intake Total 2389 252 Output Total 900 Balance 1489 252 Result Diagrams: 03/23/17 05:29 03/23/17 05:29 Additional Labs: Accuchecks 03/22/17 03/22/17 03/22/17 16:21 11:30 05:16 POC Glucose 222 H 103 227 H 03/22/17 00:49 POC Glucose 115 H Phys Exam - Physical Examination Constitutional: NAD Respiratory: no wheezing, no rhonchi Cardiovascular: RRR, no rub Gastrointestinal: soft, non-tender, positive bowel sounds Musculoskeletal: no edema Dx/Plan - Plan DVT proph w/SCDs IMPRESSION: 1. DKA - improving 2. UTI - on Atbx, No cultures sent 3. DM type 1 4. ANGELINA 5. Anxiety/Depression / Hypokalemia PLAN: * Still has low grade fever * Will cont Atbx * Ketones still elevated * Cont IVF * Cont Levemir with sliding scale * Possible dc in AM. Laboratory Tests 03/22/17 05:20 B-Hydroxybutyrate 2.57 H Review of Systems - Review of Systems Respiratory: negative: Cough, Dry, Shortness of Breath, Hemoptysis, SOB with Excertion, Pleuritic Pain, Sputum, Wheezing Cardiovascular: negative: chest pain, palpitations, orthopnea, paroxysmal nocturnal dyspnea, edema, light headedness Gastrointestinal: negative: Nausea, Vomiting, Abdominal Pain, Diarrhea, Constipation, Melena, Hematochezia - Medications/Allergies Allergies/Adverse Reactions: Allergies Allergy/AdvReac Type Severity Reaction Status Date / Time No Known Drug Allergies Allergy Verified 07/28/13 22:11 Medications: Current Medications Acetaminophen (Tylenol) 650 mg PO Q4H PRN PRN Reason: Headache/Fever or Pain Hydrocodone Bitart/Acetaminophen ([place] 5/325) 1 tab PO Q4H PRN PRN Reason: Moderate Pain (4-6) Al Hydroxide/Mg Hydroxide (Maalox) 15 ml PO Q4H PRN PRN Reason: Heartburn or Indigestion Artificial Tears (Tears Naturale) 0 drop EA EYE PRN PRN PRN Reason: Dry Eyes Dextrose/Water (Dextrose 50%) 25 gm SLOW IVP PRN PRN PRN Reason: Hypoglycemia Enoxaparin Sodium (Lovenox) 40 mg SC 0900 [facility] Last Admin: 03/22/17 08:44 Dose: 40 mg Famotidine (Pepcid) 20 mg PO BID [facility] Last Admin: 03/22/17 21:11 Dose: 20 mg Glucagon (Glucagon) 1 mg IM PRN PRN PRN Reason: Hypoglycemia Guaifenesin (Robitussin Sf) 200 mg PO Q4H PRN PRN Reason: Cough Hydralazine HCl (Apresoline) 10 mg SLOW IVP Q4H PRN PRN Reason: Systolic BP > 180 Ceftriaxone Sodium 1 gm/ (Syringe 0.4 ml/ Sterile Water) 10 mls @ 120 mls/hr SLOW IVP 1700 [facility] Last Admin: 03/22/17 17:32 Dose: 10 mls Insulin Detemir 22 units/ (Miscellaneous Medication) 0.22 mls @ 0 mls/hr SC QAM [facility] Last Admin: 03/22/17 08:44 Dose: 0.22 mls Potassium Chloride/Sodium Chloride (1/2 Ns W/Kcl 20 Meq) 1,000 mls @ 100 mls/ hr IV .Q10H [facility] Last Admin: 03/22/17 21:23 Dose: 1,000 mls Dextrose/Water (D5w) 1,000 mls @ 0 mls/hr IV .Q0M PRN; As Directed PRN Reason: Hypoglycemia Insulin Human Lispro (Humalog) 8 units SC TID-WM [facility] Last Admin: 03/22/17 17:34 Dose: 8 unit Insulin Human Lispro (Humalog) 0 units SC .MODERATE SLIDING SC PRN PRN Reason: Moderate Correctional Scale Last Admin: 03/22/17 05:54 Dose: 4 unit Insulin Human Lispro (Humalog) 0 units SC .BEDTIME SLIDING SC PRN PRN Reason: Bedtime Correctional Scale Last Admin: 03/22/17 21:25 Dose: 3 unit Loperamide HCl (Imodium) 2 mg PO PRN PRN PRN Reason: Diarrhea/Loose Stools Loratadine (Claritin) 10 mg PO DAILYPRN PRN PRN Reason: Sinus Symptoms Magnesium Hydroxide (Milk Of Magnesium) 30 ml PO DAILYPRN PRN PRN Reason: Constipation Mineral Oil/White Petrolatum (Eucerin Cream) 0 gm TOP BIDPRN PRN PRN Reason: Dry Skin Ondansetron HCl (Zofran Odt) 4 mg PO Q6H PRN PRN Reason: Nausea/Vomiting Phenol (Chloraseptic [place] 180 Ml Bot) 0 ml PO PRN PRN PRN Reason: Sore Throat Senna (Senokot) 2 tab PO HSPRN PRN PRN Reason: Constipation Sodium Chloride ([place] Nasal [place] 0.65%) 0 ml EA NARE QIDPRN PRN PRN Reason: Nasal Congestion Sodium Chloride (Flush - Normal Saline) 10 ml IVF Q12HR [facility] Last Admin: 03/22/17 08:44 Dose: 10 ml Sodium Chloride (Flush - Normal Saline) 10 ml IVF PRN PRN PRN Reason: Saline Flush Temazepam (Restoril) 15 mg PO HSPRN PRN PRN Reason: Insomnia
[2017-03-23 00:26] VITALS: TEMP 98.9
[2017-03-23 05:58] LABS: #Basophils 0.1 thou/uL (0.0-0.2); #Eosinphils 0.1 thou/uL (0.0-0.7); #Lymphocytes 2.3 thou/uL (1.20-3.40); #Monocytes 0.7 thou/uL (0.11-0.59); #Neutrophils 3.2 thou/uL (1.40-6.50); %Basophils 1.1 % (0.0-1.0); %Eosinophils 1.2 % (0.0-10.0); %Lymphocytes 36.2 % (21.0-51.0); %Neutrophils 50.5 % (42.0-75.0); Hemoglobin 11.3 g/dL (12.0-16.0); Mean Corpuscular HGB CONC 34.1 g/dL (32.0-36.0); Mean Corpuscular Hemoglobin 33.5 pg (27.0-31.0); Mean Corpuscular Volume 98.1 fl (81.0-99.0); Mean Platelet Volume 9.5 fL (7.4-10.4); Platelet Count 199 thou/uL (130-400); RBC Distribution Width 11.6 % (11.5-14.5); Red Blood Cell (RBC) Count 3.36 mill/uL (4.20-5.40); White Blood Cell (WBC) Count 6.3 thou/uL (4.8-10.8)
[2017-03-23 06:15] LABS: Anion Gap 9 mmol/L (10-20); BUN (Urea Nitrogen) 5 mg/dL (7.0-18.7); Calc. Creatinine Clearance 146 mL/min (70-130); Calcium 8.7 mg/dL (7.8-10.44); Carbon Dioxide 29 mmol/L (22-29); Chloride 106 mmol/L (98-107); Estimated GFR-MDRD Greater than 90; Glucose 270 mg/dL (70-105); Magnesium 1.8 mg/dL (1.6-2.6); Potassium 3.5 mmol/L (3.5-5.1); Sodium 140 mmol/L (136-145)
[2017-03-23] MEDS: HumaLOG 300 UNITS/3 ML VIAL SC PRN (06:22)
[2017-03-23 08:43] VITALS: BP 135/86
[2017-03-23] MEDS: Famotidine 20 MG TAB PO SCH (09:29)
[2017-03-23] MEDS: Enoxaparin Sodium 40 MG/0.4 ML SYRINGE SC SCH (09:29)
[2017-03-23] MEDS: Insulin Detemir 100 UNITS/ML 22 UNITS in Pre-Filled Syringe 1 EACH SC SCH (09:29)
[2017-03-23] MEDS: HumaLOG 300 UNITS/3 ML VIAL SC SCH ×2 (09:30→12:29)
[2017-03-23] MEDS: 1/2 NS w/KCL 20 mEq 1,000 ML IV SCH (16:23)
[2017-03-23] MEDS: cefTRIAXone\\ROCEPHIN 1 GM, Syringe 0.4 ML in Sterile Water 9.6 ML SLOW IVP SCH (16:24)
--- NOTE | 2017-03-23 17:11 | DIS ---
DATE OF DISCHARGE: 03/23/2017 DISCHARGE DISPOSITION: Home. FOLLOWUP: Follow up with primary care physician at [facility] in 1 week. ALLERGIES: No known drug allergies. DISCHARGE MEDICATIONS: 1. Bactrim 1 tablet b.i.d. for the next 5 days. 2. Other home medications were resumed. The patient was seen on the day of discharge, denies any new complaints. No chest pain, shortness of breath, palpitations. BRIEF HOSPITAL COURSE: The patient is a 26-year-old female with diabetes mellitus type 1, p resented to the hospital with abdominal pain and vomiting. Her workup was consistent with diabetic k etoacidosis along with urinary tract infection. She was placed on diabetic ketoacidosis protocol wit h insulin drip and IV fluids along with empiric antibiotics. The antibiotics has been changed to Joon trim. She appears stable for discharge. Ketone on admission was 5.99 and at discharge is 1.03. WBC on admission was 17.8 and at discharge is 6.3. She was extensively counseled on prevention of UTIs as well as diabetes mellitus type 1. FINAL DIAGNOSES: 1. Diabetic ketoacidosis. 2. Diabetes mellitus type 1. 3. Urinary tract infection. 4. Acute kidney injury with a maximum creatinine of 1.35 on admission. 5. Anxiety and depression. 6. Hypokalemia, corrected. Plan of care was discussed with the patient in detail. She stated understanding.
== END 2017-03-23 17:55 | disposition home or self-care (01) | DRG 638 ==
LOC: ERS 15:03 → IMCU/EMU 20:31 → 2NO 03-21 13:08 → T4-A 03-21 13:10
PROVIDERS: ADMIT Internal Medicine; ATTEND Internal Medicine
DX: E10.10 Type 1 diabetes mellitus with ketoacidosis without coma (principal); N39.0 Urinary tract infection, site not specified; N17.9 Acute kidney failure, unspecified; Z79.4 Long term (current) use of insulin; F41.8 Other specified anxiety disorders; E87.6 Hypokalemia; E86.0 Dehydration
CPT/HCPCS: 36415; 36416; 71046; 80048; 80053; 80061; 81003; 81015; 81025; 82010; 82553; 83036; 83735; 84100; 84484; 85025; 93005; 96365; 96366; 96375; A4216; J0696; J1650; J1815; J2405; J3475; J3480; J7050

== ENCOUNTER 2017-12-06 16:58 | Emergency (ER) | payer OTHER ==
[2017-12-06] MEDS ORDERED: diphenhydrAMINE 12.5 MG/5 ML UDCUP ONE (17:36)
[2017-12-06] MEDS ORDERED: Metoclopramide HCl 10 MG/2 ML VIAL ONE (17:36)
[2017-12-06] MEDS ORDERED: Acetaminophen 500 MG TAB ONE (17:36)
[2017-12-06 17:38] LABS: #Eosinphils 0.1 thou/uL (0.0-0.7); #Lymphocytes 1.8 thou/uL (1.20-3.40); #Monocytes 0.5 thou/uL (0.11-0.59); #Neutrophils 7.8 thou/uL (1.40-6.50); %Basophils 0.4 % (0.0-1.0); %Eosinophils 0.5 % (0.0-10.0); %Lymphocytes 17.8 % (21.0-51.0); %Neutrophils 76.3 % (42.0-75.0); Hemoglobin 14.6 g/dL (12.0-16.0); Mean Corpuscular HGB CONC 32.6 g/dL (32.0-36.0); Mean Corpuscular Hemoglobin 31.9 pg (27.0-31.0); Mean Platelet Volume 9.3 fL (7.4-10.4); Platelet Count 304 thou/uL (130-400); RBC Distribution Width 11.4 % (11.5-14.5); Red Blood Cell (RBC) Count 4.57 mill/uL (4.20-5.40); White Blood Cell (WBC) Count 10.2 thou/uL (4.8-10.8)
[2017-12-06] MEDS ORDERED: diphenhydrAMINE 50 MG/ML VIAL IVP SCH (17:45)
[2017-12-06 18:01] LABS: ALT (SGPT) 12 U/L (8-55); AST (SGOT) 15 U/L (5-34); Albumin 4.6 g/dL (3.5-5.0); Alkaline Phosphatase 82 U/L (40-150); Anion Gap 18 mmol/L (10-20); BUN (Urea Nitrogen) 9 mg/dL (7.0-18.7); Bilirubin, Total 0.9 mg/dL (0.2-1.2); Calc. Creatinine Clearance 0 mL/min (70-130); Calcium 9.7 mg/dL (7.8-10.44); Carbon Dioxide 19 mmol/L (22-29); Chloride 104 mmol/L (98-107); Estimated GFR-MDRD 86; Glucose 338 mg/dL (70-105); Potassium 4.2 mmol/L (3.5-5.1); Protein, Total 7.6 g/dL (6.0-8.3); Sodium 137 mmol/L (136-145)
[2017-12-06 20:09] LABS: Base Excess-Venous -1.6 mmol/L (0 (+/- 2.5)); Bicarbonate (HCO3v) 22.5 mmol/L (1.0-85.0); CO2 Tension (PvCO2) 35.5 mmHg (41.0-51.0); Calcium, Ionized 1.13 mmol/L (1.12-1.32); Hemoglobin - Calc 13.7 g/dL (12.0-18.0); O2 Tension (PvO2) 170.8 mmHg (35.0-45.0); Potassium 3.8 mmol/L (3.4-4.7); T. Carbon Dioxide 23.6 mmol/L (1.0-85.0); vO2 Saturation-calc 99.6 % (94-98)
== END 2017-12-06 21:13 | disposition home or self-care (01) ==
LOC: ERS 16:58
DX: E10.65 Type 1 diabetes mellitus with hyperglycemia (principal); R51 Headache; F32.9 Major depressive disorder, single episode, unspecified
CPT/HCPCS: 36415; 36416; 80053; 82010; 82330; 82803; 85025; 96361; 96374; 96375; J1200; J2765

== ENCOUNTER 2018-02-07 08:01 | Inpatient (IN) | payer OTHER ==
[2018-02-07 08:34] LABS: Bilirubin Small (Negative); Clarity CLOUDY (Clear); Glucose, Urine (Dipstick) >=1000 mg/dL (Negative); Leukocyte Small (Negative); Nitrite Negative (Negative); Protein, Urine (Dipstick) 30 mg/dL (Neg-Trace); Specific Gravity, Urine 1.033 (1.002-1.036); Urobilinogen 0.2 mg/dL (0.2-1.0)
[2018-02-07 08:37] LABS: Hyaline Casts/LPF 4-6 HYALINE CAST LPF (0-3 Hyaline); Pathc Cast-AUWi Flag 0.87 (0-2.49); Squamous Epithelial 0-3 HPF (0-3)
[2018-02-07 08:57] LABS: Blood, Urine Negative (Negative)
[2018-02-07 08:58] LABS: RBC/HPF 0-3 HPF (0-3)
[2018-02-07 08:59] LABS: Bacteria/HPF 1+ HPF (None Seen)
[2018-02-07 09:01] LABS: Base Excess-Venous -12.6 mmol/L (0 (+/- 2.5)); Bicarbonate (HCO3v) 12.1 mmol/L (22.0-29.0); CO2 Tension (PvCO2) 25.2 mmHg (41.0-51.0); Calcium, Ionized 1.24 mmol/L (1.12-1.32); Hemoglobin - Calc 15.8 g/dL (12.0-18.0); O2 Tension (PvO2) 52.2 mmHg (35.0-45.0); T. Carbon Dioxide 12.8 mmol/L (1.0-85.0); pH (Venous) 7.288 (7.35-7.45); vO2 Saturation-calc 83.3 % (94-98)
[2018-02-07 09:05] LABS: #Basophils 0.1 thou/uL (0.0-0.2); #Eosinphils 0.1 thou/uL (0.0-0.7); #Lymphocytes 1.6 thou/uL (1.20-3.40); #Monocytes 0.6 thou/uL (0.11-0.59); #Neutrophils 6.3 thou/uL (1.40-6.50); %Basophils 0.6 % (0.0-1.0); %Eosinophils 1.1 % (0.0-10.0); %Lymphocytes 18.1 % (21.0-51.0); %Monocytes 7.3 % (0.0-10.0); Hemoglobin 13.9 g/dL (12.0-16.0); Mean Corpuscular HGB CONC 33.4 g/dL (32.0-36.0); Mean Corpuscular Hemoglobin 31.9 pg (27.0-31.0); Mean Corpuscular Volume 95.4 fL (78.0-98.0); Mean Platelet Volume 9.2 fL (7.4-10.4); Platelet Count 263 thou/uL (130-400); Red Blood Cell (RBC) Count 4.36 mill/uL (4.20-5.40); White Blood Cell (WBC) Count 8.6 thou/uL (4.8-10.8)
[2018-02-07] MEDS ORDERED: cefTRIAXone\\ROCEPHIN 1 GM VIAL ONE (09:15)
[2018-02-07 09:24] LABS: BHCG - Serum Negative (NEGATIVE); Pregs Control Background? CLEAR/WHITE (CLR/WHITE); Pregs Control Bar Appear? YES (CONTROL BAR)
[2018-02-07 09:27] LABS: ALT (SGPT) 13 U/L (8-55); AST (SGOT) 12 U/L (5-34); Albumin 4.2 g/dL (3.5-5.0); Alkaline Phosphatase 87 U/L (40-150); Anion Gap 18 mmol/L (10-20); BUN (Urea Nitrogen) 12 mg/dL (7.0-18.7); Bilirubin, Total 0.5 mg/dL (0.2-1.2); Calc. Creatinine Clearance 0 mL/min (70-130); Carbon Dioxide 12 mmol/L (22-29); Chloride 108 mmol/L (98-107); Estimated GFR-MDRD 69; Globulin 3.2 g/dL (2.4-3.5); Glucose 266 mg/dL (70-105); Lipase 5 U/L (8-78); Potassium 4.1 mmol/L (3.5-5.1); Protein, Total 7.4 g/dL (6.0-8.3); Sodium 134 mmol/L (136-145)
[2018-02-07] MEDS ORDERED: NS 0.9% w/ 20 MEQ KCL 1,000 ML IV PRN ×2 (11:28)
[2018-02-07] MEDS ORDERED: Sodium Chloride 0.9% 1,000 ML IV PRN ×4 (11:28)
[2018-02-07] MEDS ORDERED: Guaifenesin DM 100-10/5 ML UDCUP PO PRN (11:28)
[2018-02-07] MEDS ORDERED: Dextrose 5 %-0.45 % NaCl 1,000 ML IV PRN (11:28)
[2018-02-07] MEDS ORDERED: Senokot S 8.6-50 MG TAB PO PRN (11:28)
[2018-02-07] MEDS ORDERED: CCU Electrolyte Replacement 1 EACH IVPB ONE (11:28)
[2018-02-07] MEDS ORDERED: Acetaminophen 325 MG TAB PO PRN (11:28)
[2018-02-07] MEDS ORDERED: D5 1/2 NS w/20 mEq KCL 1,000 ML IV PRN (11:28)
[2018-02-07] MEDS ORDERED: Potassium Chloride 40 MEQ in Sodium Chloride 0.9% 250 ML 250 ML IVPB PRN (11:40)
[2018-02-07] MEDS ORDERED: CCU ELECTROLYTE REPLACEMENT PROTOCOL FS PRN (11:40)
[2018-02-07] MEDS ORDERED: Potassium Phosphate 9 MMOL in Sodium Chloride 0.9% 100 ML IVPB PRN (11:40)
[2018-02-07] MEDS ORDERED: Magnesium Oxide 400 MG TAB PO PRN ×2 (11:40)
[2018-02-07] MEDS ORDERED: Potassium Phosphate 15 MMOL in Sodium Chloride 0.9% 250 ML 250 ML IV PRN (11:40)
[2018-02-07] MEDS ORDERED: Potassium Phosphate 12 MMOL in Sodium Chloride 0.9% 250 ML 250 ML IV PRN (11:40)
[2018-02-07] MEDS ORDERED: Potassium Chloride 40 MEQ in Premix Bag 1 BAG IVPB PRN (11:40)
[2018-02-07] MEDS ORDERED: Potassium Chloride 20 MEQ TAB PO PRN (11:40)
[2018-02-07] MEDS ORDERED: Magnesium 2 GM/NS 0.9% 100 ML 2 GM in Premix Bag 1 BAG IVPB PRN (11:40)
[2018-02-07 12:16] LABS: Anion Gap 14 mmol/L (10-20); BUN (Urea Nitrogen) 8 mg/dL (7.0-18.7); Calc. Creatinine Clearance 0 mL/min (70-130); Calcium 7.9 mg/dL (7.8-10.44); Carbon Dioxide 15 mmol/L (22-29); Chloride 114 mmol/L (98-107); Estimated GFR-MDRD Greater than 90; Glucose 152 mg/dL (70-105); Potassium 3.5 mmol/L (3.5-5.1); Sodium 139 mmol/L (136-145)
[2018-02-07] MEDS ORDERED: risperiDONE 1 MG TAB PO PRN (12:22)
--- NOTE | 2018-02-07 12:58 | HP ---
REASON FOR ADMISSION: DKA, urinary tract infection. HISTORY OF PRESENTING ILLNESS: The patient was not feeling well from yesterday. She had burning urination. Her fingerstick glucose was 512. She took 26 units of NovoLog insulin last evening. This morning, when she woke up, she was still not feeling good and in fact vomited once. This prompted the patient's mom to call EMS, and she was brought here. She has no complaints of shortness of breath, cough, or expectoration. She has no complaints of chest pain or palpitation. No history of fever at home. PAST MEDICAL HISTORY AND PAST SURGICAL HISTORY: 1. Diabetes mellitus, type 1. 2. Likely has underlying intellectual disability. 3. Depression. 4. Anxiety. CURRENT MEDICATIONS: 1. Lantus 22 units subcu daily. 2. NovoLog 8 units subcu three times daily. 3. Risperdal 2 mg p.o. q.h.s. 4. Fluoxetine 20 mg daily. 5. Wellbutrin XL 300 mg p.o. extended release daily. ALLERGIES: NO KNOWN DRUG ALLERGIES. PERSONAL HISTORY: Does not abuse alcohol or drugs. No history of smoking. She ambulates by herself. FAMILY HISTORY: Significant for diabetes in her grandparents. REVIEW OF SYSTEMS: CONSTITUTIONAL: Negative for weight loss or gain, ability to conduct usual activities. SKIN: Negative for rash, itching. EYES: Negative for double vision, pain. ENT/MOUTH: Negative for nose bleeding, neck stiffness, pain, tenderness. CARDIOVASCULAR: Negative for palpitations, dyspnea on exertion, orthopnea. RESPIRATORY: Negative for shortness of breath, wheezing, cough, hemoptysis, fever or night sweats. GASTROINTESTINAL: Negative for poor appetite, abdominal pain, heartburn, nausea , vomiting, constipation, or diarrhea. GENITOURINARY: Negative for urgency, frequency, dysuria, nocturia. MUSCULOSKELETAL: Negative for pain, swelling. NEUROLOGIC/PSYCHIATRIC: Negative for anxiety, depression. ALLERGY/IMMUNOLOGIC: Negative for skin rash, bleeding tendency. PHYSICAL EXAMINATION: GENERAL: The patient is a 27-year-old female, who is currently not in any acute distress. VITAL SIGNS: Blood pressure 126/86, pulse 120 per minute, respiratory rate 18 per minute, temperature 98 degrees Fahrenheit, and saturating 96% on room air. NECK: Supple. No elevated JVD. EYES: Extraocular muscles intact. Pupils reacting to light. Oral cavity, mucous membranes are dry. No exudates or congestion. CARDIOVASCULAR SYSTEM: S1 and S2 heard. Tachycardic. No murmur. RESPIRATORY SYSTEM: Air entry 1+ bilateral. No rales or rhonchi. ABDOMEN: Soft. Bowel sounds heard. No tenderness, rigidity, or guarding. No CV angle tenderness. EXTREMITIES: No peripheral edema or calf tenderness. VASCULAR SYSTEM: Peripheral pulses 1+ bilateral. No ischemic ulcerations or gangrene. CENTRAL NERVOUS SYSTEM: No gross focal deficits noted. The patient is alert and responds well to questions. The patient sometimes has to think long time before she gets to the answer, sometimes she cannot answer as she cannot recollect basic stuff like her medications, her primary care doctor's name, etc. The patient is seen moving all four extremities. PSYCHIATRIC SYSTEM: No obvious hallucinations or delusions. LABORATORY DATA: White count of 8, H and H 13 and 41, platelet count 263. Venous blood gas done shows a pH of 7.28, bicarb is 12. Serum bicarb is 15. Serum glucose was 266 on arrival. BUN 12, creatinine 0.9. Serum test is negative. Liver enzymes within normal limits. Albumin is 4.2. UA shows small leukocyte esterase, 4 to 6 wbc's, 1+ bacteria. Beta-hydroxybutyrate levels of 5.26. CLINICAL IMPRESSION AND PLAN: The patient will be admitted to IMCU for mild diabetic ketoacidosis with urinary tract infection. Urine cultures have been obtained. She will be on ceftriaxone. We will follow diabetic ketoacidosis evidence based protocol. She will be started at 3 units/hour of IV insulin. Likely, her gap will close by this evening. Once her gap closes, the patient can be transferred to medical floor. We will continue her home medications once they are confirmed including bupropion, fluoxetine, and Risperdal. Code status is full. Power of mortar man is her mom. We will continue to closely monitor her. She will be fluid resuscitated per diabetic ketoacidosis protocol. Job ID: [id number] MTDD
[2018-02-07 15:59] LABS: Anion Gap 11 mmol/L (10-20); BUN (Urea Nitrogen) 7 mg/dL (7.0-18.7); Calc. Creatinine Clearance 0 mL/min (70-130); Carbon Dioxide 16 mmol/L (22-29); Chloride 112 mmol/L (98-107); Estimated GFR-MDRD Greater than 90; Glucose 173 mg/dL (70-105); Potassium 3.6 mmol/L (3.5-5.1); Sodium 135 mmol/L (136-145)
[2018-02-07] MEDS ORDERED: Dextrose 5% in Water 1,000 ML IV PRN (16:08)
[2018-02-07] MEDS ORDERED: Dextrose 50% Abboject 50 ML SYRINGE SLOW IVP PRN (16:08)
[2018-02-07] MEDS ORDERED: Insulin Glargine 20 UNITS in Pre-Filled Syringe SC SCH (16:15)
[2018-02-07] MEDS: D5 1/2 NS w/20 mEq KCL 1,000 ML IV SCH (16:27)
[2018-02-07 16:31] VITALS: BMI 29.2
[2018-02-07] MEDS: HumaLOG 300 UNITS/3 ML VIAL SC SCH (18:36)
[2018-02-07] MEDS ORDERED: Famotidine 20 MG TAB PO SCH (21:00)
--- NOTE | 2018-02-07 21:39 | CON ---
DATE OF CONSULTATION: 02/07/2018 SERVICE: Pulmonary Medicine. REASON FOR CONSULT: CU patient. HISTORY OF PRESENT ILLNESS: The patient is a very pleasant 27-year-old female with past medical history significant for type 1 diabetes mellitus. She is a very poor historian. She has absolutely no idea how much long-acting insulin she takes. She does not know how much NovoLog she takes. All she can tell me is that she takes a long-acting once a day, and she gets herself pre-meal insulin 3 times a day before meals. She was in her usual state of health until the best I can understand 2 or 3 days ago, at which point, she started having increasing symptoms of feeling sick. She cannot elaborate on that currently. That being said, by chart review apparently, she was having some nausea and vomiting and took her blood sugar, which was elevated. She ended up taking 26 units of NovoLog yesterday evening, but woke up feeling worse and so she was brought to the Emergency Department. She was placed on insulin drip. The patient is actually indicating that she is breathing fairly well. She does not currently have any nausea. She has no abdominal discomfort. Otherwise, she is in her usual state of health. PAST MEDICAL HISTORY: 1. Diabetes mellitus, type 1. 2. Major depressive disorder. 3. Anxiety disorder. PAST SURGICAL HISTORY: None. FAMILY HISTORY: Noncontributory. SOCIAL HISTORY: Negative for alcohol, tobacco, or illicit drug use. She has no exposure to chemicals, dust, asbestos, or tuberculosis. ALLERGIES: NO KNOWN DRUG ALLERGIES. MEDICATIONS: List of her inpatient medications was reviewed. I am thankful that we have an accurate medication list on her. On average, she will take 46 units on a daily basis in various long-acting and short-acting forms. REVIEW OF SYSTEMS: General, head, ears, eyes, nose, throat, cardiovascular, respiratory, GI, , musculoskeletal, neurologic, and skin are negative except as mentioned is the HPI. PHYSICAL EXAMINATION: VITAL SIGNS: Afebrile, pulse 95, blood pressure 114/79, respirations 16, and saturation 100% on room air. GENERAL: The patient is awake and alert, in no apparent distress. LUNGS: Decent air entry. There is no prolonged expiratory phase or wheezing present. HEART: Normal rate, regular. ABDOMEN: Soft, nontender, and nondistended. Bowel sounds are positive. MUSCULOSKELETAL: No cyanosis or clubbing. No pitting in the bilateral lower extremities. NEUROLOGIC: Grossly nonfocal. LABORATORY DATA: CBC is completely unremarkable. A pH of 7.28, pCO2 of 25, and pO2 of 52 on a VBG. Bicarb is slowly improving to 16. Chloride is downtrending to 112 and sodium 135. Potassium 3.6. Anion gap has now resolved. Creatinine 0.76. Basic metabolic profile is otherwise unremarkable. Liver function studies were previously unremarkable. Serum and lipase were unremarkable. Urinalysis is significant for glycosuria, and ketonuria and trace proteinuria, but otherwise negative for significant findings of infection. Beta-hydroxybutyric acid 5.26 is likely resolved. ASSESSMENT: 1. Type 1 diabetes mellitus. 2. Diabetic ketoacidosis. 3. Cognitive impairment, likely. DISCUSSION AND PLAN: The patient's appetite has improved. As such, we will give her long-acting insulin, which is 22 units. Also put her on NovoLog 8 units subcu on a pre-meal basis. We will give her a moderate sliding scale on top of that. I will interrupt laboratories. We will repeat laboratories tomorrow morning. If she does well, which she can be transitioned out of the hospital first thing in the morning, back on her routine. Critical Care will continue to follow in this location but when she arrives on the floor, I will sign off. Job ID: [id number]
[2018-02-08] MEDS: D5 1/2 NS w/20 mEq KCL 1,000 ML IV SCH (05:01)
[2018-02-08 06:01] LABS: Anion Gap 17 mmol/L (10-20); BUN (Urea Nitrogen) 5 mg/dL (7.0-18.7); Calc. Creatinine Clearance 144 mL/min (70-130); Calcium 8.6 mg/dL (7.8-10.44); Carbon Dioxide 17 mmol/L (22-29); Chloride 106 mmol/L (98-107); Estimated GFR-MDRD Greater than 90; Glucose 228 mg/dL (70-105); Magnesium 1.7 mg/dL (1.6-2.6); Potassium 3.5 mmol/L (3.5-5.1); Sodium 136 mmol/L (136-145)
[2018-02-08 06:04] LABS: Phosphorus 1.7 mg/dL (2.3-4.7)
[2018-02-08] MEDS ORDERED: Potassium Phosphate 30 MMOL in Sodium Chloride 0.9% 500 ML IVPB SCH (06:45)
[2018-02-08] MEDS: HumaLOG 300 UNITS/3 ML VIAL SC SCH ×3 (08:08→15:25)
[2018-02-08] MEDS: Enoxaparin Sodium 40 MG/0.4 ML SYRINGE SC SCH (08:08)
[2018-02-08] MEDS: Insulin Glargine 20 UNITS in Pre-Filled Syringe SC SCH (08:09)
[2018-02-08] MEDS: FLUoxetine HCl 20 MG CAP PO SCH (08:09)
[2018-02-08] MEDS: Bupropion 150 MG XL TAB PO SCH (08:44)
[2018-02-08] MEDS ORDERED: cefTRIAXone\\ROCEPHIN 1 GM in Sodium Chloride 0.9% 100 ML IVPB SCH (09:00)
--- NOTE | 2018-02-08 13:28 | PDOC.PN ---
- Subjective Encounter Start Date: 02/08/18 Encounter Start Time: 11:15 Subjective: awake, not in distress -: no trouble passing urine - Objective Resuscitation Status - Order Detail: 02/07/18 11:25 Resuscitation Status Routine Resuscitation Status: FULL: Full Resuscitation MAR Reviewed: Yes Vital Signs & Weight: Vital Signs (12 hours) Temp Pulse Resp BP Pulse Ox 02/08/18 07:04 99.2 F 105 H 17 118/77 97 02/08/18 04:00 99.1 F 105 H 18 119/83 97 Weight Weight 155 lb I&O: 02/07/18 02/08/18 02/09/18 06:59 06:59 06:59 Intake Total 780 Balance 780 Result Diagrams: 02/07/18 08:46 02/08/18 05:11 Additional Labs: Accuchecks 02/08/18 02/08/18 02/07/18 11:07 05:10 20:08 POC Glucose 119 H 207 H 211 H 02/07/18 02/07/18 02/07/18 18:36 17:08 16:27 POC Glucose 105 130 H 145 H 02/07/18 02/07/18 02/07/18 15:00 14:02 13:06 POC Glucose 155 H 165 H 143 H Phys Exam - Physical Examination HEENT: PERRLA, moist MMs Neck: no JVD, supple Respiratory: no wheezing, no rales Cardiovascular: RRR, no significant murmur Gastrointestinal: soft, non-tender, positive bowel sounds Musculoskeletal: no edema, pulses present Neurological: non-focal, moves all 4 limbs Dx/Plan (1) DKA, type 1 Code(s): E10.10 - TYPE 1 DIABETES MELLITUS WITH KETOACIDOSIS WITHOUT COMA Status: Acute Qualifiers: Diabetes mellitus complication detail: without coma Qualified Code(s): E10.10 - Type 1 diabetes mellitus with ketoacidosis without coma (2) UTI (urinary tract infection) Status: Acute Qualifiers: Urinary tract infection type: acute cystitis Hematuria presence: without hematuria Qualified Code(s): N30.00 - Acute cystitis without hematuria (3) Anxiety and depression Code(s): F41.8 - OTHER SPECIFIED ANXIETY DISORDERS Status: Chronic - Plan is on home dose lantus with humalog cov -: gentle iv hydration, encourage po intake -: gap is slowly closing -: add cipro for uti, cultures are contaminated -: dc plan in am home * . Review of Systems - Medications/Allergies Allergies/Adverse Reactions: Allergies Allergy/AdvReac Type Severity Reaction Status Date / Time No Known Drug Allergies Allergy Verified 07/28/13 22:11 Medications: Current Medications Acetaminophen (Tylenol) 650 mg PO Q4H PRN PRN Reason: Headache/Fever/Mild Pain (1-3) Bupropion HCl (Wellbutrin Xl) 300 mg PO QAM [facility] Last Admin: 02/08/18 08:44 Dose: 300 mg Dextrose/Water (Dextrose 50%) 25 gm SLOW IVP PRN PRN PRN Reason: Hypoglycemia Enoxaparin Sodium (Lovenox) 40 mg SC 0900 [facility] Last Admin: 02/08/18 08:08 Dose: 40 mg Fluoxetine HCl (Prozac) 20 mg PO DAILY [facility] Last Admin: 02/08/18 08:09 Dose: 20 mg Glucagon (Glucagon) 1 mg IM PRN PRN PRN Reason: Hypoglycemia Insulin Glargine 20 units/ (Miscellaneous Medication) 0.2 mls @ 0 mls/hr SC [facility] Last Admin: 02/08/18 08:09 Dose: 0.2 mls Dextrose/Water (D5w) 1,000 mls @ 0 mls/hr IV .Q0M PRN PRN Reason: Hypoglycemia Potassium Phosphate 30 mmol/ (Sodium Chloride) 510 mls @ 63.75 mls/hr IVPB NOW [facility] Stop: 02/08/18 14:44 Last Admin: 02/08/18 08:08 Dose: 510 mls Insulin Human Lispro (Humalog) 6 units SC [facility] Last Admin: 02/08/18 12:03 Dose: Not Given Insulin Human Lispro (Humalog) 0 units SC .MODERATE SLIDING SC PRN PRN Reason: Moderate Correctional Scale Risperidone (Risperidone) 2 mg PO HS PRN PRN Reason: Insomnia Senna/Docusate Sodium (Senokot S) 2 tab PO BID PRN PRN Reason: Constipation
[2018-02-08] MEDS: HumaLOG 300 UNITS/3 ML VIAL SC PRN ×2 (15:26→20:12)
[2018-02-08] MEDS ORDERED: Potassium Chloride 20 MEQ TAB PO SCH (18:15)
--- NOTE | 2018-02-08 18:26 | PRG ---
DATE OF SERVICE: 02/08/2018 SERVICE: Pulmonary Medicine. INTERVAL HISTORY: The patient is really doing well from respiratory standpoint. She is breathing comfortably this morning. There has been no interval change to her condition. She denies any chest pain, nausea, vomiting, fevers, or chills. She is eating comfortably. She has no complaints of shortness of breath or abdominal discomfort. OBJECTIVE: VITAL SIGNS: Afebrile with a T-max of 99.2, pulse 105, blood pressure 118/77, respirations 17, and saturation 97% on room air. GENERAL: The patient is awake and alert, in no apparent distress. LUNGS: Decent air entry. There is no prolonged expiratory phase. No crackles or wheezing appreciated. HEART: Normal rate and regular. ABDOMEN: Soft, nontender, and nondistended. Bowel sounds are positive. MUSCULOSKELETAL: No cyanosis or clubbing. No pitting in the bilateral lower extremities. NEUROLOGIC: Grossly nonfocal. LABORATORY DATA: Bicarb 17. Basic metabolic profile is otherwise unremarkable. Magnesium 1.7 and phosphorus 1.7. Blood cultures x2 and urine culture negative. ASSESSMENT: 1. Diabetic ketoacidosis. 2. Type 1 diabetes mellitus. 3. Cognitive impairment. DISCUSSION AND PLAN: The patient is doing fine from respiratory standpoint. At this point, she has no further requirements for inpatient pulmonary critical care opinion, and I will sign off. Please call with additional questions or concerns moving forward. Job ID: [id number]
[2018-02-08] MEDS: Ciprofloxacin 500 MG TAB PO SCH (20:09)
[2018-02-09] MEDS: Ciprofloxacin 500 MG TAB PO SCH (06:32)
[2018-02-09] MEDS: HumaLOG 300 UNITS/3 ML VIAL SC PRN (06:32)
[2018-02-09 07:27] LABS: Anion Gap 20 mmol/L (10-20); BUN (Urea Nitrogen) 7 mg/dL (7.0-18.7); Calc. Creatinine Clearance 144 mL/min (70-130); Calcium 8.9 mg/dL (7.8-10.44); Carbon Dioxide 13 mmol/L (22-29); Chloride 107 mmol/L (98-107); Estimated GFR-MDRD Greater than 90; Glucose 281 mg/dL (70-105); Potassium 4.2 mmol/L (3.5-5.1); Sodium 136 mmol/L (136-145)
[2018-02-09] MEDS: Bupropion 150 MG XL TAB PO SCH (07:45)
[2018-02-09] MEDS: HumaLOG 300 UNITS/3 ML VIAL SC SCH ×2 (07:45→11:49)
[2018-02-09] MEDS: Enoxaparin Sodium 40 MG/0.4 ML SYRINGE SC SCH (07:45)
[2018-02-09] MEDS: FLUoxetine HCl 20 MG CAP PO SCH (07:45)
[2018-02-09] MEDS: Insulin Glargine 20 UNITS in Pre-Filled Syringe SC SCH (07:46)
[2018-02-09 08:32] VITALS: BP 116/81; TEMP 99
--- NOTE | 2018-02-09 10:58 | PDOC.PN ---
- Subjective Encounter Start Date: 02/09/18 Encounter Start Time: 09:40 Subjective: feels good, wants to go home -: is eating well, amb in room -: no nausea or urinary freq/urgency - Objective Resuscitation Status - Order Detail: 02/07/18 11:25 Resuscitation Status Routine Resuscitation Status: FULL: Full Resuscitation MAR Reviewed: Yes Vital Signs & Weight: Vital Signs (12 hours) Temp Pulse Resp BP BP Pulse Ox 02/09/18 08:25 99 02/09/18 08:00 99.0 F 99 18 116/81 96 02/09/18 04:00 98.8 F 120 H 18 131/85 93 L 02/09/18 00:00 99 F 122 H 18 128/86 96 Weight Weight 155 lb I&O: 02/08/18 02/09/18 02/10/18 06:59 06:59 06:59 Intake Total 780 600 240 Balance 780 600 240 Result Diagrams: 02/07/18 08:46 02/09/18 06:01 Additional Labs: Accuchecks 02/09/18 02/08/18 02/08/18 06:13 19:12 15:21 POC Glucose 263 H 195 H 370 H 02/08/18 11:07 POC Glucose 119 H Phys Exam - Physical Examination HEENT: PERRLA, moist MMs Neck: no JVD, supple Respiratory: no wheezing, no rales Cardiovascular: RRR, no significant murmur Gastrointestinal: soft, non-tender, positive bowel sounds Musculoskeletal: no edema, pulses present Neurological: non-focal, moves all 4 limbs Dx/Plan (1) DKA, type 1 Code(s): E10.10 - TYPE 1 DIABETES MELLITUS WITH KETOACIDOSIS WITHOUT COMA Status: Acute Qualifiers: Diabetes mellitus complication detail: without coma Qualified Code(s): E10.10 - Type 1 diabetes mellitus with ketoacidosis without coma (2) UTI (urinary tract infection) Status: Acute Qualifiers: Urinary tract infection type: acute cystitis Hematuria presence: without hematuria Qualified Code(s): N30.00 - Acute cystitis without hematuria (3) Anxiety and depression Code(s): F41.8 - OTHER SPECIFIED ANXIETY DISORDERS Status: Chronic - Plan may dc home -: cipro x 4 days -: to check fingerstick twice daily and record for 10 days to f/u with PCP * .
--- NOTE | 2018-02-09 13:37 | DIS ---
DATE OF ADMISSION: 02/07/2018 DATE OF DISCHARGE: 02/09/2018 DISCHARGE DISPOSITION: Is to home. PRIMARY DISCHARGE DIAGNOSES: 1. Diabetic ketoacidosis with history of diabetes mellitus type 1. 2. Urinary tract infection. 3. Underlying intellectual disability. 4. Anxiety. 5. Depression. PROCEDURES DONE DURING HOSPITALIZATION: The patient has had blood cultures x2, no growth. Urine culture was contaminated. White count of 8, H and H of 13 and 41, platelet count 263, MCV is 95. Discharge fingerstick glucose is ranging from 195 to 236. Serum test was negative. Beta-hydroxybutyrate level is 5.26. Venous blood gas done on admission showed a bicarb of 12, pH of 7.28. DISCHARGE MEDICATIONS: 1. Ciprofloxacin 500 mg p.o. twice daily for a period of 4 days. 2. Fluoxetine 20 mg daily. 3. Lantus 22 units subcutaneous daily. 4. NovoLog 8 units subcutaneous 3 times daily. 5. Wellbutrin extended release 300 mg daily. 6. Risperdal 2 mg p.o. at bedtime. ALLERGIES: NO KNOWN DRUG ALLERGIES. DISCHARGE PLAN: The patient to follow up with primary care physician in 1 week. BRIEF COURSE DURING HOSPITALIZATION: The patient initially was brought to emergency room as she is not feeling well and had burning urination as well. Her fingerstick glucose at home was 512. The patient was essentially admitted for mild DKA and urinary tract infection. She was placed on IV antibiotics and has been transitioned over to oral ciprofloxacin. She was on IV insulin and was on DKA protocol. She was downgraded to medical floor in 24 hours. The patient's fingerstick glucose is slowly receding back to her baseline. She has been advised to check fingerstick glucose twice daily, record for 10 days, to follow up with primary care physician for any increase in her insulin. She is otherwise hemodynamically stable, eating well, and ambulating prior to discharge. Please see a [id number] documentation for the day of discharge on [facility]. Job ID: [id number]
== END 2018-02-09 12:37 | disposition home or self-care (01) | DRG 638 ==
LOC: ERS 08:01 → IMCU/EMU 11:17 → T4-A 21:17
PROVIDERS: ADMIT Internal Medicine; ATTEND Internal Medicine
DX: E10.10 Type 1 diabetes mellitus with ketoacidosis without coma (principal); N39.0 Urinary tract infection, site not specified; Z79.4 Long term (current) use of insulin; F32.9 Major depressive disorder, single episode, unspecified; F41.9 Anxiety disorder, unspecified; F79 Unspecified intellectual disabilities
CPT/HCPCS: 36415; 36416; 80048; 80053; 81003; 81015; 82010; 82330; 82803; 83690; 83735; 84100; 84703; 85025; 87040; 87086; 96361; 96365; 96367; J0696; J1650; J1815; J7050

== ENCOUNTER 2018-04-24 06:38 | Inpatient (IN) | payer OTHER ==
[2018-04-24 07:14] LABS: Bilirubin Negative (Negative); Blood, Urine Trace (Negative); Clarity CLEAR (Clear); Glucose, Urine (Dipstick) >=1000 mg/dL (Negative); Leukocyte Negative (Negative); Nitrite Negative (Negative); Protein, Urine (Dipstick) 100 mg/dL (Neg-Trace); Specific Gravity, Urine 1.025 (1.002-1.036); Urobilinogen 0.2 mg/dL (0.2-1.0); pH, Urine 5.5 (5.0-9.0)
[2018-04-24 07:16] LABS: Bacteria/HPF None Seen HPF (None Seen); Hyaline Casts/LPF 0-3 HYALINE CAST LPF (0-3 Hyaline); Pregnancy Test - Urine (BHCG) Negative (Negative); Pregu Control Background? CLEAR/WHITE (CLR/WHITE); Pregu Control Bar Appear? YES (CONTROL BAR); RBC/HPF 0-3 HPF (0-3); Specific Gravity 1.025 (1.002-1.036)
[2018-04-24 07:23] LABS: Hemoglobin 15.5 g/dL (12.0-16.0); Mean Corpuscular HGB CONC 31.5 g/dL (32.0-36.0); Mean Corpuscular Hemoglobin 31.5 pg (27.0-31.0); Mean Corpuscular Volume 99.8 fL (78.0-98.0); Mean Platelet Volume 9.5 fL (7.4-10.4); Platelet Count 311 thou/uL (130-400); RBC Distribution Width 11.8 % (11.5-14.5); Red Blood Cell (RBC) Count 4.94 mill/uL (4.20-5.40)
[2018-04-24 07:40] LABS: ALT (SGPT) 15 U/L (8-55); AST (SGOT) 15 U/L (5-34); Alkaline Phosphatase 96 U/L (40-150); BUN (Urea Nitrogen) 17 mg/dL (7.0-18.7); Bilirubin, Total 0.2 mg/dL (0.2-1.2); Calc. Creatinine Clearance 0 mL/min (70-130); Calcium 10.1 mg/dL (7.8-10.44); Chloride 103 mmol/L (98-107); Estimated GFR-MDRD 42; Glucose 419 mg/dL (70-105); Lipase 7 U/L (8-78); Potassium 5.3 mmol/L (3.5-5.1); Sodium 133 mmol/L (136-145)
[2018-04-24 07:43] LABS: Carbon Dioxide Less than 8 mmol/L (22-29)
[2018-04-24 07:57] LABS: Band 12 % (5-11); Lymphocytes 11 % (21-51); MDiff Complete? YES; Monocytes 4 % (0-10); Neutrophil 73 % (42-75)
[2018-04-24] MEDS ORDERED: Ondansetron PF 4 MG/2 ML Vial ONE (08:08)
[2018-04-24] MEDS ORDERED: Insulin Regular 100 UNITS in Sodium Chloride 0.9% 100 ML IVPB SCH (08:30)
[2018-04-24] MEDS ORDERED: Acetaminophen 500 MG TAB ONE (08:59)
--- NOTE | 2018-04-24 11:20 | HP ---
PRIMARY CARE PROVIDER: Dr. Barone at the [facility]. CHIEF COMPLAINT: Nausea, vomiting, and abdominal pain. HISTORY OF PRESENT ILLNESS: This is a 27-year-old female with significant history of type 1 diabetes mellitus, on current insulin with Lantus and NovoLog, who presents with 1-to 2-day history of increasing abdominal discomfort, nausea, vomiting, and general malaise. The patient with recurrent history of diabetic ketoacidosis with most recent admission to [facility] from 02/07/2018 through 02/09/2018. The patient states she has been compliant with her insulin regimen and monitors her sugar using a sliding scale for meals with NovoLog. The patient does see her primary care provider as well, who has been adjusting her insulin regimen. Last hemoglobin A1c available in the electronic medical record showed a value of 8.0 on 03/22/2017. The patient denied any documented fever, exposure history, recent illness or travel history. The patient denied any specific increased cough, shortness of breath, unilateral weakness, visual disturbance, or dysuria. In the emergency room, the patient underwent general evaluation with elevated glucose into the 400 range as well as a carbon dioxide level less than 8. Urinalysis showed glucosuria with ketones. The patient was placed on insulin infusion at 8 units/hour and initiated on DKA protocol with aggressive IV fluid hydration. The patient also received antiemetics and was referred to the Hospitalist Service for admission. PAST MEDICAL HISTORY: 1. Diabetes mellitus type 1 with recurrent DKA. 2. Depression. 3. Anxiety. 4. History of marijuana use. PAST SURGICAL HISTORY: Reviewed and negative. CURRENT MEDICATIONS: 1. Lantus 26 units subcutaneously at bedtime. 2. NovoLog sliding scale t.i.d. with meals. 3. Risperdal 2 mg p.o. at bedtime. 4. Fluoxetine 20 mg p.o. daily. 5. Wellbutrin XL 300 mg p.o. extended release daily. ALLERGIES: NO KNOWN DRUG ALLERGIES. FAMILY HISTORY: Positive for diabetes in her grandparents. SOCIAL HISTORY: The patient resides with her parents and grandparents in the [place], [place] area. History of marijuana use. History of tobacco use. No alcohol. PSYCHIATRIC HISTORY: Positive for admission to [facility] in 2019. REVIEW OF SYSTEMS: CONSTITUTIONAL: Negative for weight loss or gain, ability to conduct usual activities. SKIN: Negative for rash, itching. EYES: Negative for double vision, pain. ENT/MOUTH: Negative for nose bleeding, neck stiffness, pain, tenderness. CARDIOVASCULAR: Negative for palpitations, dyspnea on exertion, orthopnea. RESPIRATORY: Negative for shortness of breath, wheezing, cough, hemoptysis, fever or night sweats. GASTROINTESTINAL: Negative for poor appetite, abdominal pain, heartburn, nausea, vomiting, constipation, or diarrhea. GENITOURINARY: Negative for urgency, frequency, dysuria, nocturia. MUSCULOSKELETAL: Negative for pain, swelling. NEUROLOGIC/PSYCHIATRIC: Negative for anxiety, depression. ALLERGY/IMMUNOLOGIC: Negative for skin rash, bleeding tendency. Otherwise, negative except as stated per HPI. PHYSICAL EXAMINATION: VITAL SIGNS: Currently, blood pressure 136/90, pulse 141, respiratory rate 20, temperature 98.7, and O2 saturation is 98% on room air. GENERAL APPEARANCE: This is a 27-year-old female, alert and oriented x3, pleasant, in no acute distress. HEENT: Pupils are equal, round, and reactive to light and accommodation. Extraocular muscles are intact. No scleral icterus. No conjunctival injection. Nares patent. OP is clear. Teeth in fair repair. NECK: Supple. No cervical adenopathy. No thyromegaly. No carotid bruits. No JVD appreciated. Cervical spine with full active and passive range of motion. No meningeal signs noted. CHEST: Lungs are clear to auscultation bilaterally. CARDIOVASCULAR: S1 and S2 with tachycardia. No murmur, rub, or gallop appreciated. ABDOMEN: Rounded, soft, nontender, and nondistended. Bowel sounds are positive in all 4 quadrants. There is no hepatosplenomegaly. No abdominal bruits. No rebound or guarding appreciated. EXTREMITIES: Warm and dry with fair turgor. No clubbing, cyanosis, or asymmetric edema appreciated. Pulses palpable distally at the dorsalis pedis, posterior tibial, and popliteal arteries bilaterally. Capillary refill less than 2 seconds. NEUROLOGIC: Cranial nerves II through XII are grossly intact. No focal or lateralizing signs appreciated. PERTINENT LABORATORY AND X-RAY FINDINGS: Sodium 133, potassium 5.3, chloride 103, CO2 less than 8, BUN 17, creatinine 1.48, estimated GFR of 42, glucose 419, and calcium 10.1. LFTs within normal limits. Albumin 5.0, lipase 7. CBC showed a white blood cell count of 22.0, hemoglobin 15.5, hematocrit 49.3, MCV 99.8, platelet count 311 with 73% neutrophils, 12% bands. Urinalysis positive for glucose, protein, and ketones. Urine hCG negative on 04/24/2018. Beta-hydroxybutyrate level 8.35. EKG dated 04/24/2018, by my interpretation shows sinus tachycardia with heart rates in the 130s. Normal axis. No acute ST-T wave changes noted. ASSESSMENT AND PLAN: 1. Diabetic ketoacidosis. The patient will be admitted to the Intermediate Care Unit. We will continue diabetic ketoacidosis protocol with aggressive IV fluid hydration. We will continue insulin infusion currently at 8 units/hour, titrating to clinical response and glucose levels. No current evidence to suggest focal infectious process. Confirm home insulin regimen. Check A1c level in the a.m. 2. Nausea and vomiting. We will continue IV fluids as outlined previously. Antiemetics with Zofran 4 mg IV q.6 hours p.r.n. Clear liquids as tolerated. 3. Acute kidney injury. Secondarily to volume depletion and diabetic ketoacidosis. Avoid nephrotoxic agents and limit contrast exposure. Continue IV fluids and repeat creatinine in the a.m. 4. Hyponatremia. Suspect pseudohyponatremia given hyperglycemia. We will continue IV fluids and expect correction of hyponatremia with correction of glucose values. 5. Sinus tachycardia. Secondarily to diabetic ketoacidosis. We will continue telemetry monitoring in the Intermediate Care Unit. Continue treatment of underlying condition of diabetic ketoacidosis. 6. Depression. We will resume home antidepressant regimen and monitor clinically. Continue Wellbutrin and Risperdal. 7. Prophylaxis. SCDs while in bed. Pepcid 20 mg p.o. b.i.d. 8. Code status: Full. Surrogate medical decision maker is the patient's mother. Job ID: [id number]
--- NOTE | 2018-04-24 13:11 | RAD ---
PORTABLE AP CHEST: Date: 04/24/18 HISTORY: Fever. COMPARISON: 03/20/17. FINDINGS: Cardiac silhouette and pulmonary vasculature are within normal limits. Lungs remain clear. There has been no interval change when compared to the prior exam. IMPRESSION: No acute cardiopulmonary process. POS: [facility]
[2018-04-24] MEDS ORDERED: CCU Electrolyte Replacement 1 EACH IVPB ONE (14:45)
[2018-04-24] MEDS ORDERED: Acetaminophen 500 MG TAB PO PRN (14:45)
[2018-04-24] MEDS ORDERED: Sodium Chloride 0.9% 1,000 ML IV PRN ×4 (14:45)
[2018-04-24] MEDS ORDERED: HUMULIN R 100 UNITS in Sodium Chloride 0.9% 100 ML IVPB SCH (14:45)
[2018-04-24] MEDS ORDERED: NS 0.9% w/ 20 MEQ KCL 1,000 ML IV PRN ×2 (14:45)
[2018-04-24] MEDS ORDERED: Dextrose 5 %-0.45 % NaCl 1,000 ML IV PRN (14:45)
[2018-04-24] MEDS ORDERED: Ondansetron PF 4 MG/2 ML Vial IVP PRN (14:45)
[2018-04-24] MEDS ORDERED: Ondansetron ODT 4 MG TAB PO PRN (14:45)
[2018-04-24] MEDS ORDERED: Potassium Chloride 40 MEQ in Premix Bag 1 BAG IVPB PRN (14:49)
[2018-04-24] MEDS ORDERED: Potassium Chloride 20 MEQ TAB PO PRN (14:49)
[2018-04-24] MEDS ORDERED: Potassium Phosphate 15 MMOL in Sodium Chloride 0.9% 250 ML 250 ML IV PRN (14:49)
[2018-04-24] MEDS ORDERED: Potassium Chloride 40 MEQ in Sodium Chloride 0.9% 250 ML 250 ML IVPB PRN (14:49)
[2018-04-24] MEDS ORDERED: Potassium Phosphate 12 MMOL in Sodium Chloride 0.9% 250 ML 250 ML IV PRN (14:49)
[2018-04-24] MEDS ORDERED: Potassium Phosphate 9 MMOL in Sodium Chloride 0.9% 100 ML IVPB PRN (14:49)
[2018-04-24] MEDS ORDERED: Magnesium Oxide 400 MG TAB PO PRN ×2 (14:49)
[2018-04-24] MEDS ORDERED: Magnesium 2 GM/50 ML 2 GM in Premix Bag 1 BAG IVPB PRN (14:49)
[2018-04-24] MEDS ORDERED: CCU ELECTROLYTE REPLACEMENT PROTOCOL FS PRN (14:49)
[2018-04-24 14:54] VITALS: BMI 27.8
[2018-04-24 16:04] LABS: Anion Gap 12 mmol/L (10-20); BUN (Urea Nitrogen) 10 mg/dL (7.0-18.7); Calc. Creatinine Clearance 90 mL/min (70-130); Carbon Dioxide 12 mmol/L (22-29); Chloride 116 mmol/L (98-107); Estimated GFR-MDRD 67; Glucose 179 mg/dL (70-105); Sodium 136 mmol/L (136-145)
[2018-04-24] MEDS: D5 1/2 NS w/20 mEq KCL 1,000 ML IV PRN ×2 (16:45→20:48)
[2018-04-24] MEDS: Sodium Chloride 0.9% 1,000 ML IV SCH ×2 (17:27→17:28)
[2018-04-24 20:15] LABS: Anion Gap 8 mmol/L (10-20); BUN (Urea Nitrogen) 13 mg/dL (7.0-18.7); Calc. Creatinine Clearance 103 mL/min (70-130); Calcium 7.5 mg/dL (7.8-10.44); Carbon Dioxide 14 mmol/L (22-29); Chloride 115 mmol/L (98-107); Estimated GFR-MDRD 78; Glucose 256 mg/dL (70-105); Potassium 3.9 mmol/L (3.5-5.1); Sodium 133 mmol/L (136-145)
[2018-04-24] MEDS: Famotidine 20 MG TAB PO SCH (21:13)
[2018-04-24 21:27] LABS: Anion Gap 9 mmol/L (10-20); BUN (Urea Nitrogen) 12 mg/dL (7.0-18.7); Calc. Creatinine Clearance 108 mL/min (70-130); Calcium 7.8 mg/dL (7.8-10.44); Carbon Dioxide 13 mmol/L (22-29); Chloride 118 mmol/L (98-107); Estimated GFR-MDRD 82; Glucose 173 mg/dL (70-105); Potassium 3.7 mmol/L (3.5-5.1); Sodium 136 mmol/L (136-145)
[2018-04-24] MEDS ORDERED: risperiDONE 1 MG TAB PO SCH (22:30)
[2018-04-25] MEDS: D5 1/2 NS w/20 mEq KCL 1,000 ML IV PRN ×2 (00:51→04:55)
[2018-04-25 05:43] LABS: Hemoglobin A1c 8.6 % (4.0-6.0)
[2018-04-25 05:57] LABS: Anion Gap 8 mmol/L (10-20); BUN (Urea Nitrogen) 5 mg/dL (7.0-18.7); Calc. Creatinine Clearance 131 mL/min (70-130); Calcium 7.4 mg/dL (7.8-10.44); Carbon Dioxide 15 mmol/L (22-29); Chloride 115 mmol/L (98-107); Estimated GFR-MDRD Greater than 90; Glucose 133 mg/dL (70-105); Potassium 3.5 mmol/L (3.5-5.1); Sodium 134 mmol/L (136-145)
[2018-04-25 06:13] LABS: Hemoglobin 11.5 g/dL (12.0-16.0); Mean Corpuscular HGB CONC 34.2 g/dL (32.0-36.0); Mean Corpuscular Hemoglobin 33.3 pg (27.0-31.0); Mean Corpuscular Volume 97.2 fL (78.0-98.0); Mean Platelet Volume 8.4 fL (7.4-10.4); Platelet Count 202 thou/uL (130-400); RBC Distribution Width 11.8 % (11.5-14.5); Red Blood Cell (RBC) Count 3.45 mill/uL (4.20-5.40); White Blood Cell (WBC) Count 11.3 thou/uL (4.8-10.8)
[2018-04-25 08:00] LABS: Magnesium 1.5 mg/dL (1.6-2.6)
[2018-04-25 08:07] LABS: Phosphorus 1.4 mg/dL (2.3-4.7)
[2018-04-25] MEDS: Bupropion 150 MG XL TAB PO SCH (09:07)
[2018-04-25] MEDS: FLUoxetine HCl 20 MG CAP PO SCH (09:08)
[2018-04-25] MEDS: Insulin Glargine 22 UNITS in Pre-Filled Syringe 1 EACH SC SCH (09:08)
[2018-04-25] MEDS: Famotidine 20 MG TAB PO SCH ×2 (09:08→20:16)
[2018-04-25] MEDS ORDERED: Bisacodyl 10 MG SUPP PR PRN (09:33)
[2018-04-25] MEDS ORDERED: Eucerin (Mineral Oil/Petrolatum,White) 30 gm Jar TOP PRN (09:33)
[2018-04-25] MEDS ORDERED: Senokot S 8.6-50 MG TAB PO PRN (09:33)
[2018-04-25] MEDS ORDERED: HumaLOG 300 UNITS/3 ML VIAL SC PRN (09:33)
[2018-04-25] MEDS ORDERED: Artificial Tear Sol 15 ML BOT EA EYE PRN (09:33)
[2018-04-25] MEDS ORDERED: Loperamide HCl 2 MG CAP PO PRN (09:33)
[2018-04-25] MEDS ORDERED: Dextrose 50% Abboject 50 ML SYRINGE SLOW IVP PRN (09:33)
[2018-04-25] MEDS ORDERED: Sodium Chloride 0.65% Nasal 44 ML BOT EA NARE PRN (09:33)
[2018-04-25] MEDS ORDERED: Dextrose 5% in Water 1,000 ML IV PRN (09:33)
[2018-04-25] MEDS ORDERED: Zolpidem Tartrate 5 MG TAB PO PRN (09:33)
[2018-04-25] MEDS ORDERED: Loratadine 10 MG TAB PO PRN (09:33)
[2018-04-25] MEDS ORDERED: Diabetic Tussin 200 MG/10 ML UDCUP PO PRN (09:33)
[2018-04-25] MEDS ORDERED: Cepastat Lozenges 1 LOZ PO PRN (09:33)
[2018-04-25] MEDS: Sodium Chloride 0.45% 1,000 ML IV SCH ×2 (09:56→20:16)
[2018-04-25] MEDS ORDERED: Potassium Phosphate 30 MMOL in Sodium Chloride 0.9% 250 ML 250 ML IVPB SCH (10:00)
--- NOTE | 2018-04-25 10:36 | PDOC.PN ---
- Subjective Encounter Start Date: 04/25/18 Encounter Start Time: 09:30 -: old records requested/rev Patient seen and examined. No new complaints. No overnight events - Objective Resuscitation Status - Order Detail: 04/24/18 10:04 Resuscitation Status Routine Resuscitation Status: FULL: Full Resuscitation MAR Reviewed: Yes Vital Signs & Weight: Vital Signs (12 hours) Temp Pulse Ox 04/25/18 08:16 100 04/25/18 07:12 99.3 F 04/25/18 04:00 98.8 F 04/25/18 00:00 98.2 F Weight Weight 147 lb 9.6 oz Most Recent Monitor Data Heart Rate from ECG 114 NIBP 104/58 NIBP BP-Mean 73 Respiration from ECG 23 SpO2 99 I&O: 04/24/18 04/25/18 04/26/18 06:59 06:59 06:59 Intake Total 4378 500 Output Total 1900 Balance 2478 500 Result Diagrams: 04/25/18 05:30 04/25/18 05:30 Additional Labs: Accuchecks 04/25/18 04/25/18 04/25/18 10:05 09:04 08:06 POC Glucose 204 H 234 H 126 H 04/25/18 04/25/18 04/25/18 07:03 06:07 05:08 POC Glucose 122 H 126 H 139 H 04/25/18 04/25/18 04/25/18 04:36 03:06 02:12 POC Glucose 141 H 126 H 127 H 04/25/18 04/25/18 04/24/18 01:08 00:13 23:09 POC Glucose 111 H 110 108 04/24/18 04/24/18 04/24/18 21:59 21:07 20:02 POC Glucose 138 H 158 H 196 H 04/24/18 04/24/18 04/24/18 19:14 18:18 17:22 POC Glucose 243 H 233 H 246 H 04/24/18 04/24/18 04/24/18 16:40 15:05 14:36 POC Glucose 229 H 167 H 188 H 04/24/18 04/24/18 04/24/18 14:08 12:58 11:49 POC Glucose 169 H 112 H 170 H 04/24/18 11:10 POC Glucose 200 H EKG Reviewed by me: Yes (nsr) Phys Exam - Physical Examination Constitutional: NAD HEENT: PERRLA, moist MMs, sclera anicteric Neck: no JVD, supple Respiratory: no wheezing, no rales, no rhonchi Cardiovascular: RRR, no significant murmur, no rub Gastrointestinal: soft, non-tender, no distention, positive bowel sounds Musculoskeletal: no edema, pulses present Neurological: non-focal, normal sensation, moves all 4 limbs Lymphatic: no nodes Psychiatric: normal affect, A&O x 3 Skin: no rash, normal turgor Dx/Plan (1) Abnormal blood electrolyte level Code(s): E87.8 - OTH DISORDERS OF ELECTROLYTE AND FLUID BALANCE, NEC Status: Acute (2) DKA, type 1 Code(s): E10.10 - TYPE 1 DIABETES MELLITUS WITH KETOACIDOSIS WITHOUT COMA Status: Acute Qualifiers: (3) Anxiety and depression Code(s): F41.8 - OTHER SPECIFIED ANXIETY DISORDERS Status: Chronic (4) Diabetes mellitus type 1 Status: Chronic - Plan cont current plan of care * DKA has resolved * today will replace magnesium, potassium phosphate * will start basal insulin and overlap insulin drip for few hours and then will dc insulin drip and consider transfer to medical floor * today insulin as per sliding scale along with prandial insulin every 4 hourly * medication reviewed as below * symptomatic treatment * continue IVF * repeat labs tomorrow. Review of Systems - Review of Systems ENT: negative: Ear Pain, Ear Discharge, Nose Pain, Nose Discharge, Nose Congestion, Mouth Pain, Mouth Swelling, Throat Pain, Throat Swelling, Other Respiratory: negative: Cough, Dry, Shortness of Breath, Hemoptysis, SOB with Excertion, Pleuritic Pain, Sputum, Wheezing Cardiovascular: negative: chest pain, palpitations, orthopnea, paroxysmal nocturnal dyspnea, edema, light headedness, other Gastrointestinal: negative: Nausea, Vomiting, Abdominal Pain, Diarrhea, Constipation, Melena, Hematochezia, Other Genitourinary: negative: Dysuria, Frequency, Incontinence, Hematuria, Retention , Other Musculoskeletal: negative: Neck Pain, Shoulder Pain, Arm Pain, Back Pain, Hand Pain, Leg Pain, Foot Pain, Other Skin: negative: Rash, Lesions, Juanito, Bruising, Other - Medications/Allergies Allergies/Adverse Reactions: Allergies Allergy/AdvReac Type Severity Reaction Status Date / Time No Known Drug Allergies Allergy Verified 04/24/18 14:49 Medications: Current Medications Acetaminophen (Tylenol) 1,000 mg PO Q6H PRN PRN Reason: Mild Pain (1-3) Artificial Tears (Tears Renewed 15ml Bottle) 2 drop EA EYE PRN PRN PRN Reason: Dry Eyes Bisacodyl (Dulcolax) 10 mg ME DAILYPRN PRN PRN Reason: Constipation Bupropion HCl (Wellbutrin Xl) 300 mg PO DAILY [facility] Last Admin: 04/25/18 09:07 Dose: 300 mg Dextrose/Water (Dextrose 50%) 25 gm SLOW IVP PRN PRN PRN Reason: Hypoglycemia Famotidine (Pepcid) 20 mg PO BID [facility] Last Admin: 04/25/18 09:08 Dose: 20 mg Fluoxetine HCl (Prozac) 40 mg PO DAILY [facility] Last Admin: 04/25/18 09:08 Dose: 40 mg Glucagon (Glucagon) 1 mg IM PRN PRN PRN Reason: Hypoglycemia Guaifenesin (Robitussin Sf) 200 mg PO Q4H PRN PRN Reason: Cough Insulin Human Regular 100 (units/ Sodium Chloride) 101 mls @ 0 mls/hr IVPB INF [facility]; Protocol Potassium Phosphate 30 mmol/ (Sodium Chloride) 260 mls @ 43.333 mls/hr IVPB 1000 [facility] Stop: 04/25/18 16:00 Last Admin: 04/25/18 09:07 Dose: 260 mls Insulin Glargine 22 units/ (Miscellaneous Medication) 0.22 mls @ 0 mls/hr SC QAM [facility] Last Admin: 04/25/18 09:08 Dose: 0.22 mls Dextrose/Water (D5w) 1,000 mls @ 0 mls/hr IV .Q0M PRN PRN Reason: Hypoglycemia Sodium Chloride (1/2 Normal Saline) 1,000 mls @ 100 mls/hr IV .Q10H [facility] Last Admin: 04/25/18 09:56 Dose: 1,000 mls Magnesium Sulfate 3 gm/ Sodium (Chloride) 106 mls @ 100 mls/hr IVPB NOW [facility] Stop: 04/25/18 13:00 Insulin Human Lispro (Humalog) 8 units SC TID-[facility] Insulin Human Lispro (Humalog) 0 units SC .MODERATE SLIDING SC PRN PRN Reason: Moderate Correctional Scale Insulin Human Lispro (Humalog) 0 units SC .BEDTIME SLIDING SC PRN PRN Reason: Bedtime Correctional Scale Loperamide HCl (Imodium) 2 mg PO PRN PRN PRN Reason: Diarrhea/Loose Stools Loratadine (Claritin) 10 mg PO DAILYPRN PRN PRN Reason: Sinus Symptoms Mineral Oil/White Petrolatum (Eucerin Cream) 0 gm TOP BIDPRN PRN PRN Reason: Dry Skin Ondansetron HCl (Zofran Odt) 4 mg PO Q6H PRN PRN Reason: Nausea/Vomiting Ondansetron HCl (Zofran) 4 mg IVP Q6H PRN PRN Reason: Nausea/Vomiting Risperidone (Risperidone) 4 mg PO HS [facility] Senna/Docusate Sodium (Senokot S) 2 tab PO BID PRN PRN Reason: Constipation Sodium Chloride ([place] Nasal [place] 0.65%) 0 ml EA NARE QIDPRN PRN PRN Reason: Nasal Congestion Throat Lozenges (Cepastat Lozenges) 1 junior PO Q2H PRN PRN Reason: Sore Throat Zolpidem Tartrate (Ambien) 5 mg PO HSPRN PRN PRN Reason: Insomnia
[2018-04-25] MEDS ORDERED: Magnesium Sulfate 3 GM in Sodium Chloride 0.9% 100 ML IVPB SCH (11:00)
[2018-04-25] MEDS: HumaLOG 300 UNITS/3 ML VIAL SC SCH ×2 (12:14→17:09)
[2018-04-25] MEDS: risperiDONE 1 MG TAB PO SCH (21:12)
[2018-04-26 05:22] LABS: #Eosinphils 0.1 thou/uL (0.0-0.7); #Lymphocytes 2.1 thou/uL (1.20-3.40); #Monocytes 0.9 thou/uL (0.11-0.59); #Neutrophils 4.7 thou/uL (1.40-6.50); %Basophils 0.6 % (0.0-1.0); %Eosinophils 1.5 % (0.0-10.0); %Lymphocytes 26.5 % (21.0-51.0); %Monocytes 11.2 % (0.0-10.0); %Neutrophils 60.2 % (42.0-75.0); Hemoglobin 10.7 g/dL (12.0-16.0); Mean Corpuscular HGB CONC 33.8 g/dL (32.0-36.0); Mean Corpuscular Hemoglobin 33.1 pg (27.0-31.0); Mean Corpuscular Volume 98.1 fL (78.0-98.0); Mean Platelet Volume 8.9 fL (7.4-10.4); Platelet Count 185 thou/uL (130-400); RBC Distribution Width 11.8 % (11.5-14.5); Red Blood Cell (RBC) Count 3.24 mill/uL (4.20-5.40); White Blood Cell (WBC) Count 7.8 thou/uL (4.8-10.8)
[2018-04-26 05:53] LABS: Anion Gap 10 mmol/L (10-20); BUN (Urea Nitrogen) Less than 4 mg/dL (7.0-18.7); Calc. Creatinine Clearance 175 mL/min (70-130); Calcium 8.1 mg/dL (7.8-10.44); Carbon Dioxide 25 mmol/L (22-29); Chloride 108 mmol/L (98-107); Estimated GFR-MDRD Greater than 90; Glucose 163 mg/dL (70-105); Magnesium 2.1 mg/dL (1.6-2.6); Sodium 140 mmol/L (136-145)
[2018-04-26 05:55] LABS: Potassium 2.9 mmol/L (3.5-5.1)
[2018-04-26] MEDS: Sodium Chloride 0.45% 1,000 ML IV SCH ×2 (06:12→18:06)
[2018-04-26] MEDS ORDERED: Potassium Chloride 20 MEQ TAB PO SCH (07:30)
[2018-04-26] MEDS ORDERED: Potassium Phosphate 30 MMOL in Sodium Chloride 0.9% 500 ML IVPB SCH (08:00)
[2018-04-26] MEDS: HumaLOG 300 UNITS/3 ML VIAL SC SCH ×3 (08:04→17:11)
[2018-04-26] MEDS: Potassium Chloride 20 MEQ TAB PO SCH ×2 (08:05→17:13)
[2018-04-26] MEDS: K-Phos Neutral 250 MG TAB PO SCH ×2 (08:06→12:43)
[2018-04-26] MEDS: FLUoxetine HCl 20 MG CAP PO SCH (08:07)
[2018-04-26] MEDS: Bupropion 150 MG XL TAB PO SCH (08:07)
[2018-04-26] MEDS: Famotidine 20 MG TAB PO SCH ×2 (08:07→20:27)
[2018-04-26] MEDS: Insulin Glargine 22 UNITS in Pre-Filled Syringe 1 EACH SC SCH (08:56)
--- NOTE | 2018-04-26 10:01 | PDOC.PN ---
- Subjective Encounter Start Date: 04/26/18 Encounter Start Time: 09:20 Patient seen and examined. No new complaints. No overnight events - Objective Resuscitation Status - Order Detail: 04/24/18 10:04 Resuscitation Status Routine Resuscitation Status: FULL: Full Resuscitation MAR Reviewed: Yes Vital Signs & Weight: Vital Signs (12 hours) Temp Pulse Resp BP Pulse Ox 04/26/18 08:00 98.3 F 102 H 18 118/68 95 04/26/18 04:00 98.2 F 96 18 118/70 98 04/26/18 00:35 98.1 F 99 18 120/72 97 Weight Weight 147 lb 9.6 oz Most Recent Monitor Data Heart Rate from ECG 114 NIBP 104/58 NIBP BP-Mean 73 Respiration from ECG 23 SpO2 99 I&O: 04/25/18 04/26/18 04/27/18 06:59 06:59 06:59 Intake Total 4378 4600 Output Total 1900 Balance 2478 4600 Result Diagrams: 04/26/18 03:55 04/26/18 03:55 Additional Labs: Accuchecks 04/26/18 04/26/18 04/26/18 08:03 04:05 00:38 POC Glucose 345 H 160 H 151 H 04/25/18 04/25/18 04/25/18 20:20 16:32 10:05 POC Glucose 155 H 107 204 H Phys Exam - Physical Examination Constitutional: NAD HEENT: PERRLA, moist MMs, sclera anicteric Neck: no JVD, supple Respiratory: no wheezing, no rales, no rhonchi Cardiovascular: RRR, no significant murmur, no rub Gastrointestinal: soft, non-tender, no distention, positive bowel sounds Musculoskeletal: no edema, pulses present Neurological: non-focal, normal sensation Lymphatic: no nodes Psychiatric: normal affect, A&O x 3 Skin: no rash, normal turgor Dx/Plan (1) Abnormal blood electrolyte level Code(s): E87.8 - OTH DISORDERS OF ELECTROLYTE AND FLUID BALANCE, NEC Status: Acute (2) DKA, type 1 Code(s): E10.10 - TYPE 1 DIABETES MELLITUS WITH KETOACIDOSIS WITHOUT COMA Status: Acute Qualifiers: (3) Anxiety and depression Code(s): F41.8 - OTHER SPECIFIED ANXIETY DISORDERS Status: Chronic (4) Diabetes mellitus type 1 Status: Chronic - Plan cont current plan of care * medication reviewed as below * symptomatic treatment * replace potassium phosphate. * repeat labs tomorrow Review of Systems - Review of Systems ENT: negative: Ear Pain, Ear Discharge, Nose Pain, Nose Discharge, Nose Congestion, Mouth Pain, Mouth Swelling, Throat Pain, Throat Swelling, Other Respiratory: negative: Cough, Dry, Shortness of Breath, Hemoptysis, SOB with Excertion, Pleuritic Pain, Sputum, Wheezing Cardiovascular: negative: chest pain, palpitations, orthopnea, paroxysmal nocturnal dyspnea, edema, light headedness, other Gastrointestinal: negative: Nausea, Vomiting, Abdominal Pain, Diarrhea, Constipation, Melena, Hematochezia, Other Genitourinary: negative: Dysuria, Frequency, Incontinence, Hematuria, Retention , Other Musculoskeletal: negative: Neck Pain, Shoulder Pain, Arm Pain, Back Pain, Hand Pain, Leg Pain, Foot Pain, Other - Medications/Allergies Allergies/Adverse Reactions: Allergies Allergy/AdvReac Type Severity Reaction Status Date / Time No Known Drug Allergies Allergy Verified 04/24/18 14:49 Medications: Current Medications Acetaminophen (Tylenol) 1,000 mg PO Q6H PRN PRN Reason: Mild Pain (1-3) Last Admin: 04/25/18 12:18 Dose: 1,000 mg Artificial Tears (Tears Renewed 15ml Bottle) 2 drop EA EYE PRN PRN PRN Reason: Dry Eyes Bisacodyl (Dulcolax) [address] DAILYPRN PRN PRN Reason: Constipation Bupropion HCl (Wellbutrin Xl) 300 mg PO DAILY [facility] Last Admin: 04/26/18 08:07 Dose: 300 mg Dextrose/Water (Dextrose 50%) 25 gm SLOW IVP PRN PRN PRN Reason: Hypoglycemia Famotidine (Pepcid) 20 mg PO BID [facility] Last Admin: 04/26/18 08:07 Dose: 20 mg Fluoxetine HCl (Prozac) 40 mg PO DAILY [facility] Last Admin: 04/26/18 08:07 Dose: 40 mg Glucagon (Glucagon) 1 mg IM PRN PRN PRN Reason: Hypoglycemia Guaifenesin (Robitussin Sf) 200 mg PO Q4H PRN PRN Reason: Cough Insulin Human Regular 100 (units/ Sodium Chloride) 101 mls @ 0 mls/hr IVPB INF [facility]; Protocol Insulin Glargine 22 units/ (Miscellaneous Medication) 0.22 mls @ 0 mls/hr SC QAM [facility] Last Admin: 04/26/18 08:56 Dose: 0.22 mls Dextrose/Water (D5w) 1,000 mls @ 0 mls/hr IV .Q0M PRN PRN Reason: Hypoglycemia Sodium Chloride (1/2 Normal Saline) 1,000 mls @ 100 mls/hr IV .Q10H [facility] Last Admin: 04/26/18 06:12 Dose: 1,000 mls Potassium Phosphate 30 mmol/ (Sodium Chloride) 510 mls @ 83.3 mls/hr IVPB 0800 [facility] Stop: 04/26/18 16:00 Last Admin: 04/26/18 08:06 Dose: 510 mls Insulin Human Lispro (Humalog) 8 units SC TID-[facility] Last Admin: 04/26/18 08:04 Dose: 8 unit Insulin Human Lispro (Humalog) 0 units SC .MODERATE SLIDING SC PRN PRN Reason: Moderate Correctional Scale Insulin Human Lispro (Humalog) 0 units SC .BEDTIME SLIDING SC PRN PRN Reason: Bedtime Correctional Scale Loperamide HCl (Imodium) 2 mg PO PRN PRN PRN Reason: Diarrhea/Loose Stools Loratadine (Claritin) 10 mg PO DAILYPRN PRN PRN Reason: Sinus Symptoms Mineral Oil/White Petrolatum (Eucerin Cream) 0 gm TOP BIDPRN PRN PRN Reason: Dry Skin Ondansetron HCl (Zofran Odt) 4 mg PO Q6H PRN PRN Reason: Nausea/Vomiting Ondansetron HCl (Zofran) 4 mg IVP Q6H PRN PRN Reason: Nausea/Vomiting Phosphorus (Kphos Neutral) 500 mg PO QID-[facility] Stop: 04/27/18 08:01 Last Admin: 04/26/18 08:06 Dose: Not Given Potassium Chloride (K-Dur) 20 meq PO BID-[facility] Stop: 04/26/18 17:01 Last Admin: 04/26/18 08:05 Dose: 20 meq Risperidone (Risperidone) 4 mg PO [facility] Last Admin: 04/25/18 21:12 Dose: 4 mg Senna/Docusate Sodium (Senokot S) 2 tab PO BID PRN PRN Reason: Constipation Sodium Chloride ([place] Nasal [place] 0.65%) 0 ml EA NARE QIDPRN PRN PRN Reason: Nasal Congestion Throat Lozenges (Cepastat Lozenges) 1 junior PO Q2H PRN PRN Reason: Sore Throat Zolpidem Tartrate (Ambien) 5 mg PO HSPRN PRN PRN Reason: Insomnia
[2018-04-26] MEDS: HumaLOG 300 UNITS/3 ML VIAL SC PRN (12:41)
[2018-04-26] MEDS: risperiDONE 1 MG TAB PO SCH (20:27)
[2018-04-27] MEDS: Sodium Chloride 0.45% 1,000 ML IV SCH ×2 (04:34→12:15)
[2018-04-27 04:37] LABS: Anion Gap 11 mmol/L (10-20); BUN (Urea Nitrogen) 4 mg/dL (7.0-18.7); Calc. Creatinine Clearance 142 mL/min (70-130); Calcium 9.1 mg/dL (7.8-10.44); Carbon Dioxide 25 mmol/L (22-29); Chloride 106 mmol/L (98-107); Estimated GFR-MDRD Greater than 90; Glucose 215 mg/dL (70-105); Sodium 138 mmol/L (136-145)
[2018-04-27 04:57] LABS: Phosphorus 2.8 mg/dL (2.3-4.7)
[2018-04-27] MEDS: Insulin Glargine 22 UNITS in Pre-Filled Syringe 1 EACH SC SCH (08:31)
[2018-04-27] MEDS: HumaLOG 300 UNITS/3 ML VIAL SC PRN ×2 (08:33→12:05)
[2018-04-27] MEDS: HumaLOG 300 UNITS/3 ML VIAL SC SCH ×2 (08:33→12:05)
[2018-04-27] MEDS: Bupropion 150 MG XL TAB PO SCH (08:34)
[2018-04-27] MEDS: Famotidine 20 MG TAB PO SCH (08:34)
[2018-04-27] MEDS: FLUoxetine HCl 20 MG CAP PO SCH (08:34)
--- NOTE | 2018-04-27 10:41 | DIS ---
DATE OF ADMISSION: 04/24/2018 DATE OF DISCHARGE: 04/27/2018 PRIMARY CARE PHYSICIAN: Michael Damian. DISCHARGE DISPOSITION: Home. PRIMARY DISCHARGE DIAGNOSES: 1. Diabetic ketoacidosis, type 1, resolved. 2. Abnormal blood electrolytes, corrected. SECONDARY DISCHARGE DIAGNOSES: 1. Diabetes type 1. 2. Anxiety. 3. Depression. PRIMARY PROCEDURE/OPERATION: None. RADIOLOGICAL INVESTIGATION: Chest x-ray normal. SIGNIFICANT LABORATORIES: Hemoglobin 10.7, creatinine 0.63. Electrolytes normal. Urinalysis unremarkable other than glucosuria, ketonuria. Serum ketone 0.27. Blood culture and urine culture negative. DISCHARGE MEDICATIONS: 1. Wellbutrin XL 300 mg p.o. daily. 2. Prozac 40 mg daily. 3. Risperidone 4 mg p.o. at bedtime p.r.n. 4. Lantus insulin 22 units subcu daily. 5. NovoLog insulin 8 units subcu t.i.d. CONTRAINDICATION: None. CODE STATUS: Full code. INPATIENT ACADEMY DIRECTOR: None. ALLERGIES: NO KNOWN DRUG ALLERGY. DISCHARGE PLAN: Posthospital, the patient will make appointment with primary care physician in one week. HOSPITAL COURSE: A 27-year-old female with above-mentioned medical problem, who was admitted by Dr. Restrepo on April 24, 2018. Please see his H and P for further details. She came to ER for nausea, vomiting, and abdominal pain. She was diagnosed with DKA. She was admitted to the IMCU. She was treated with diabetes ketoacidosis protocol treatment. Next day, her DKA resolved. She had abnormal electrolytes, which was corrected. We transferred her to medical floor. She was doing well on her home regimen while in hospital. The patient is medically stable for discharge today. I have seen and examined this patient at bedside personally and diabetes education provided. Her physical examination is completely normal and her vitals are stable. She claimed that she has all her previous medications. Job ID: [id number]
[2018-04-27 12:45] VITALS: BP 118/70; TEMP 97.5
== END 2018-04-27 15:11 | disposition home or self-care (01) | DRG 638 ==
LOC: ERS 06:38 → ERHOLD 08:44 → IMCU/EMU 14:26 → ONC 04-25 11:51
PROVIDERS: ADMIT Family Medicine; ATTEND Family Medicine
DX: E10.10 Type 1 diabetes mellitus with ketoacidosis without coma (principal); N17.9 Acute kidney failure, unspecified; E87.1 Hypo-osmolality and hyponatremia; F41.9 Anxiety disorder, unspecified; F32.9 Major depressive disorder, single episode, unspecified; E87.8 Other disorders of electrolyte and fluid balance, not elsewhere classified; Z79.4 Long term (current) use of insulin; Z79.899 Other long term (current) drug therapy; E86.9 Volume depletion, unspecified
CPT/HCPCS: 36415; 36416; 71045; 80048; 80053; 81003; 81015; 81025; 82010; 83036; 83690; 83735; 84100; 85025; 85027; 87040; 87086; 93005; J1815; J1825; J2405; J3475; J7050

== ENCOUNTER 2018-12-26 02:45 | Inpatient (IN) | payer OTHER ==
[2018-12-26 03:17] LABS: #Basophils 0.1 thou/uL (0.0-0.2); #Eosinphils 0.1 thou/uL (0.0-0.7); #Lymphocytes 2.6 thou/uL (1.20-3.40); #Monocytes 0.7 thou/uL (0.11-0.59); #Neutrophils 7.8 thou/uL (1.40-6.50); %Basophils 0.8 % (0.0-1.0); %Eosinophils 0.9 % (0.0-10.0); %Lymphocytes 23.2 % (21.0-51.0); %Monocytes 5.9 % (0.0-10.0); %Neutrophils 69.3 % (42.0-75.0); Hemoglobin 13.9 g/dL (12.0-16.0); Mean Corpuscular HGB CONC 36.3 g/dL (32.0-36.0); Mean Corpuscular Hemoglobin 34.7 pg (27.0-31.0); Mean Corpuscular Volume 95.5 fL (78.0-98.0); Mean Platelet Volume 8.7 fL (7.4-10.4); Platelet Count 243 thou/uL (130-400); RBC Distribution Width 11.4 % (11.5-14.5); Red Blood Cell (RBC) Count 4.01 mill/uL (4.20-5.40); White Blood Cell (WBC) Count 11.3 thou/uL (4.8-10.8)
[2018-12-26 03:40] LABS: ALT (SGPT) 10 U/L (8-55); AST (SGOT) 10 U/L (5-34); Albumin 4.4 g/dL (3.5-5.0); Alkaline Phosphatase 102 U/L (40-110); Anion Gap 18 mmol/L (10-20); BUN (Urea Nitrogen) 14 mg/dL (7.0-18.7); Bilirubin, Total 0.7 mg/dL (0.2-1.2); Calc. Creatinine Clearance 0 mL/min (70-130); Calcium 9.2 mg/dL (7.8-10.44); Carbon Dioxide 16 mmol/L (22-29); Chloride 105 mmol/L (98-107); Estimated GFR-MDRD 76; Globulin 2.9 g/dL (2.4-3.5); Glucose 372 mg/dL (70-105); Lipase 5 U/L (8-78); Magnesium 1.8 mg/dL (1.6-2.6); Phosphorus 3.1 mg/dL (2.3-4.7); Potassium 3.8 mmol/L (3.5-5.1); Protein, Total 7.3 g/dL (6.0-8.3); Sodium 135 mmol/L (136-145)
[2018-12-26 03:48] LABS: Base Excess-Venous -10.8 mmol/L (-2.0 to 3.0); CO2 Tension (PvCO2) 28.1 mmHg (40.0-50.0); Calcium, Ionized 1.25 mmol/L (See Comments:); Chloride 110 mmol/L (98-107); Potassium 3.7 mmol/L (3.5-5.1); Sodium 137 mmol/L (138-145); T. Carbon Dioxide 14.9 mmol/L (22.0-28.0); vO2 Saturation-calc 93.1 % (60.0-85.0)
[2018-12-26] MEDS ORDERED: Ondansetron PF 4 MG/2 ML Vial ONE (04:13)
[2018-12-26] MEDS ORDERED: Insulin Regular 300 UNITS/3 ML VIAL ONE (04:13)
[2018-12-26 04:24] LABS: BHCG - Serum Negative (NEGATIVE); Pregs Control Background? CLEAR/WHITE (CLR/WHITE); Pregs Control Bar Appear? YES (CONTROL BAR)
[2018-12-26 04:29] LABS: Pregnancy Test - Urine (BHCG) Negative (Negative); Specific Gravity 1.033 (1.002-1.036)
[2018-12-26 04:30] LABS: Pregu Control Background? CLEAR/WHITE (CLR/WHITE); Pregu Control Bar Appear? YES (CONTROL BAR)
[2018-12-26 04:34] LABS: Bacteria/HPF None Seen HPF (None Seen); Bilirubin Negative (Negative); Blood, Urine 3+ (Negative); Clarity Turbid (Clear); Glucose, Urine (Dipstick) Greater than 1000 mg/dL (Negative); Leukocyte Negative Leu/uL (Negative); Nitrite Negative (Negative); Protein, Urine (Dipstick) 30 mg/dL (Neg-Trace); RBC/HPF Greater than 50 HPF (0-3); Urobilinogen Normal mg/dL (Less than 2); WBC/HPF None Seen HPF (0-3)
[2018-12-26 07:57] VITALS: BMI 30.8
[2018-12-26] MEDS ORDERED: Ondansetron PF 4 MG/2 ML Vial IVP PRN (08:08)
[2018-12-26] MEDS ORDERED: Ondansetron ODT 4 MG TAB PO PRN (08:09)
[2018-12-26] MEDS ORDERED: Acetaminophen 325 MG TAB PO PRN (08:52)
[2018-12-26] MEDS ORDERED: Dextrose 5% in Water 1,000 ML IV PRN (08:52)
[2018-12-26] MEDS ORDERED: Dextrose 50% Abboject 50 ML SYRINGE SLOW IVP PRN (08:52)
--- NOTE | 2018-12-26 08:53 | RAD ---
Exam: Chest one view HISTORY:Emesis. Comparison: 12/23/2015 FINDINGS: Cardiac silhouette: Normal Aorta: Unremarkable Pulmonary vessels: Normal Costophrenic angles: Clear LUNGS: No masses or consolidation. Pneumothorax: None Osseous abnormalities: None IMPRESSION: No acute cardiopulmonary process.
[2018-12-26] MEDS ORDERED: Lactated Ringer's 1,000 ML IV SCH ×2 (09:00→09:11)
[2018-12-26] MEDS ORDERED: Insulin Glargine 20 UNITS in Pre-Filled Syringe 1 EACH SC SCH ×2 (09:15→21:00)
--- NOTE | 2018-12-26 09:49 | HP ---
PRIMARY CARE PROVIDER: Michael Damian. CHIEF COMPLAINT: Nausea and vomiting. HISTORY OF PRESENT ILLNESS: A 28-year-old female with known history of type 1 diabetes, on insulin therapy, admitted with acute onset of nausea and vomiting that started around 2 a.m. earlier today. The patient reportedly has had about 7 episodes of emesis. She, however, denied hematemesis, melena, dysuria, hematuria, or hematochezia. The patient reported ill feeling, but denied fever, chills, or rigors. She has been having abdominal pain, which she attributed to abdominal cramps related to her menstrual period. In the ER, the patient was evaluated and found to have hyperglycemia associated with ketosis and was treated with Zofran, NovoLog, regular insulin IV, as well as 2 L of normal saline with improvement in symptoms. The patient reportedly missed her Lantus last night. She also has not been very compliant with her medications as she felt that her blood sugar was 100 and that if she take insulin that will bring it too low. She denies change in bowel habits, dysuria, or headache. PAST MEDICAL HISTORY: 1. Diabetes mellitus. 2. Depression. 3. Prior history of substance abuse. PAST SURGICAL HISTORY: None. FAMILY HISTORY: Significant for hypertension in mother. Otherwise unremarkable. SOCIAL HISTORY: The patient lives with mother and family. Former smoker who quit about 10 years ago. She has a history of marijuana use as well, but currently not using. Denied IV drug use, but admitted to occasional alcohol use. ALLERGIES: NO KNOWN DRUG ALLERGIES REPORTED. HOME MEDICATIONS: 1. Bupropion XL 300 mg daily. 2. Fluoxetine 20 mg p.o. daily. 3. Risperdal 2 mg daily at bedtime. 4. Lantus 22 units at bedtime. 5. Humalog 6 units t.i.d. with meals. REVIEW OF SYSTEMS: 12-point review of systems performed and was negative other than pertinent positives and negatives included in the history of present illness. PHYSICAL EXAMINATION: VITAL SIGNS: Initial vitals on presentation to the ER showed blood pressure 122/75, pulse 115, respiratory rate 20, temperature 98, pain 0/10, and SpO2 97% on room air. Most current vitals showed temperature 98.4, pulse 117, respiratory rate 20, SpO2 of 99% on room air, and blood pressure 111/61. GENERAL: Young female, in no distress. Afebrile. Anicteric. Acyanotic. HEENT: Normocephalic, atraumatic. Oral mucosa is moist. NECK: Supple. Nontender with good range of motion. No JVD or masses appreciated. CARDIOVASCULAR: Regular rhythm, but tachycardic. Normal heart sounds one and two. RESPIRATORY: Good air entry bilaterally with no crackle or rhonchi or use of accessory muscles. GI: Full, soft, nontender, and nondistended with normal bowel sounds. EXTREMITIES: Grossly normal looking, atraumatic, with no obvious edema or erythema. MEDICAL SALES ASSOCIATE: Conscious, alert, oriented x3 with appropriate mental status. Cranial nerves 2 through 12 are grossly intact. The patient moves all extremities. PSYCHIATRIC: Normal affect. DIAGNOSTIC DATA: CBC today showed WBC count of 11.3, hemoglobin of 13.9, and MCV of 95.5. Venous blood gas performed earlier today showed pH of 7.305. CMP earlier today showed sodium 135, potassium 3.8, chloride 105, CO2 of 16, anion gap 18, BUN 14, creatinine 0.89, glucose 372, calcium 9.2, phosphorus 3.1, magnesium 1.8, total bilirubin 0.7, AST 10, ALT 10, alkaline phosphatase 102, total protein 7.3, albumin 4.4, globulin 2.9. Lipase is 5. test was negative. Urinalysis showed turbid urine with pH of 5.5, specific gravity of 1.034, urine protein of 30 mg/dL, glucose more than a 1000, ketones greater than 150, blood 3+, and negative nitrite, bilirubin, and leukocyte esterase. Microscopy showed rbc more than 50, wbc none. Beta hydroxybutyrate was elevated at 4.51. ASSESSMENT: 1. Type 1 diabetes mellitus with early mild diabetic ketoacidosis. 2. Nausea and vomiting. 3. Volume depletion due to nausea and vomiting. 4. Metabolic acidosis. 5. Noncompliance. PLAN: 1. We will start the patient on IV fluid therapy with lactated Ringer's at 200 mL/h. 2. We will also restart the patient on Lantus and sliding scale insulin. We will also restart diet as tolerated. 3. Antiemetic as needed will be provided. 4. We will monitor electrolytes and replete as needed. 5. Further treatment to follow depending on hospital course. 6. DVT prophylaxis with Lovenox will be provided. Job ID: [id number]
[2018-12-26] MEDS: Dextrose 5%-Lactated Ringers 1,000 ML IV SCH ×2 (10:44→18:41)
[2018-12-26] MEDS: Enoxaparin Sodium 40 MG/0.4 ML SYRINGE SC SCH (10:44)
[2018-12-26] MEDS: HumaLOG 300 UNITS/3 ML VIAL SC SCH ×2 (13:37→17:33)
[2018-12-26 16:17] LABS: Anion Gap 14 mmol/L (10-20); BUN (Urea Nitrogen) 8 mg/dL (7.0-18.7); Calc. Creatinine Clearance 111 mL/min (70-130); Calcium 8.6 mg/dL (7.8-10.44); Carbon Dioxide 18 mmol/L (22-29); Chloride 106 mmol/L (98-107); Estimated GFR-MDRD 77; Glucose 383 mg/dL (70-105); Magnesium 1.9 mg/dL (1.6-2.6); Potassium 4.1 mmol/L (3.5-5.1); Sodium 134 mmol/L (136-145)
[2018-12-26] MEDS: HumaLOG 300 UNITS/3 ML VIAL SC PRN (17:34)
[2018-12-26] MEDS: Lactated Ringer's 1,000 ML IV SCH (18:40)
[2018-12-26] MEDS ORDERED: risperiDONE 1 MG TAB PO SCH (23:45)
[2018-12-27] MEDS ORDERED: Sodium Chloride 0.65% Nasal 44 ML BOT EA NARE PRN (02:29)
[2018-12-27] MEDS: Lactated Ringer's 1,000 ML IV SCH ×5 (03:14→21:22)
[2018-12-27 05:16] LABS: Anion Gap 11 mmol/L (10-20); BUN (Urea Nitrogen) 5 mg/dL (7.0-18.7); Calc. Creatinine Clearance 153 mL/min (70-130); Calcium 8.4 mg/dL (7.8-10.44); Carbon Dioxide 24 mmol/L (22-29); Chloride 109 mmol/L (98-107); Estimated GFR-MDRD Greater than 90; Glucose 187 mg/dL (70-105); Magnesium 1.7 mg/dL (1.6-2.6); Potassium 3.7 mmol/L (3.5-5.1); Sodium 140 mmol/L (136-145)
[2018-12-27] MEDS: Enoxaparin Sodium 40 MG/0.4 ML SYRINGE SC SCH (08:51)
[2018-12-27] MEDS: HumaLOG 300 UNITS/3 ML VIAL SC SCH ×3 (08:51→16:55)
[2018-12-27] MEDS ORDERED: Magnesium 2 GM/50 ML 2 GM in Premix Bag 1 BAG IVPB SCH (09:00)
[2018-12-27] MEDS ORDERED: Insulin Glargine 20 UNITS in Pre-Filled Syringe 1 EACH SC SCH (09:00)
[2018-12-27] MEDS ORDERED: Insulin Glargine 10 UNITS in Pre-Filled Syringe 1 EACH SC SCH (12:00)
[2018-12-27] MEDS: HumaLOG 300 UNITS/3 ML VIAL SC PRN (12:43)
--- NOTE | 2018-12-27 13:55 | PDOC.HOSPP ---
- Subjective Encounter Date: 12/27/18 Encounter Time: 08:52 Subjective: 28 y/o female with DM admitted with acute onset of nausea and vomiting. Found to have tachycardia and hyperglycemia with blood glucose in 300's associated with metabolic acidosis ketonuria consistent with DKA. Started on subcut insulin and IVF with improvement. Developede tachycardia earlier today with HR in 140-150s. No new complain otherwise. Feeling better and tolerating diet. - Objective Vital Signs & Weight: Vital Signs (12 hours) Temp Pulse Resp BP BP Pulse Ox 12/27/18 11:05 97.8 F 102 H 18 132/86 96 12/27/18 07:21 98.5 F 93 18 128/78 98 12/27/18 03:21 97.8 F 105 H 18 115/74 98 Weight Weight 163 lb 6.4 oz I&O: 12/26/18 12/27/18 12/28/18 06:59 06:59 06:59 Intake Total 4400 Output Total 3100 Balance 1300 Result Diagrams: 12/26/18 03:06 12/27/18 04:37 Additional Labs: Accuchecks 12/27/18 12/26/18 12/26/18 10:48 20:36 16:28 POC Glucose 265 H 178 H 347 H Hospitalist ROS - Medication Medications: Active Medications Generic Name Dose Route Start Last Admin Trade Name Freq PRN Reason Stop Dose Admin Acetaminophen 650 mg 12/26/18 08:52 12/27/18 08:51 Tylenol PO 650 mg Q4H PRN Administration Headache/Fever/Mild Pain (1-3) Enoxaparin Sodium 40 mg 12/26/18 09:00 12/27/18 08:51 Lovenox SC 40 mg 0900 ELIZABETH Administration Lactated Ringer's 1,000 mls @ 200 mls/hr 12/27/18 08:45 12/27/18 08:50 Lactated Ringer's IV 1,000 mls .Q5H ELIZABETH Administration Insulin Glargine 10 units/ 0.1 mls @ 0 mls/hr 12/27/18 12:00 12/27/18 12:42 Miscellaneous Medication SC 12/27/18 14:00 0.1 mls NOW ELIZABETH Administration Insulin Human Lispro 0 units 12/26/18 08:52 12/27/18 12:43 Humalog SC 6 unit .MODERATE SLIDING SC PRN Administration Moderate Correctional Scale Insulin Human Lispro 2 units 12/26/18 12:00 12/27/18 12:42 Humalog SC 2 unit TID-WM ELIZABETH Administration Sodium Chloride 10 ml 12/26/18 09:00 12/27/18 08:51 Flush - Normal Saline IVF Not Given Q12HR ELIZABETH Sodium Chloride 0 ml 12/27/18 02:29 12/27/18 03:14 [place] Nasal [place] 0.65% EA NARE 1 spr PRN PRN Administration Nasal Stuffiness - Exam General Appearance: awake alert Eye: anicteric sclera ENT: normocephalic atraumatic Neck: supple, symmetric, no JVD Heart: RRR, no murmur Respiratory: no wheezes, no rales, no ronchi, normal chest expansion Gastrointestinal: soft, non-tender, non-distended, normal bowel sounds Extremities: no cyanosis, no edema Neurological: cranial nerve grossly intact, no focal deficits Psychiatric: normal affect, A&O x 3 Hosp A/P (1) DKA, type 1 Code(s): E10.10 - TYPE 1 DIABETES MELLITUS WITH KETOACIDOSIS WITHOUT COMA Status: Acute Qualifiers: (2) Volume depletion Code(s): E86.9 - VOLUME DEPLETION, UNSPECIFIED Status: Acute (3) Nausea and vomiting Code(s): R11.2 - NAUSEA WITH VOMITING, UNSPECIFIED Status: Acute (4) Tachyarrhythmia Code(s): R00.0 - TACHYCARDIA, UNSPECIFIED Status: Acute (5) Diabetes mellitus type 1 Status: Chronic (6) Hypomagnesemia Code(s): E83.42 - HYPOMAGNESEMIA Status: Acute - Plan Increase IVF to 200 cc/hr. increase lantus to 30 units daily. Continue humalog Replete serum magnesium Telemetry. Diet as tolerated. antiemetic as needed
[2018-12-27] MEDS ORDERED: risperiDONE 1 MG TAB PO SCH (21:00)
[2018-12-28] MEDS: Lactated Ringer's 1,000 ML IV SCH ×2 (02:03→09:45)
[2018-12-28] MEDS: HumaLOG 300 UNITS/3 ML VIAL SC PRN ×2 (05:15→12:57)
[2018-12-28 06:03] LABS: Hemoglobin A1c 8.7 % (4.0-6.0)
[2018-12-28 06:20] LABS: Albumin 3.9 g/dL (3.5-5.0); Anion Gap 13 mmol/L (10-20); BUN (Urea Nitrogen) 4 mg/dL (7.0-18.7); BUN/Creatinine Ratio 6.78; Calc. Creatinine Clearance 166 mL/min (70-130); Carbon Dioxide 25 mmol/L (22-29); Chloride 105 mmol/L (98-107); Estimated GFR-MDRD Greater than 90; Glucose 230 mg/dL (70-105); Phosphorus 2.6 mg/dL (2.3-4.7); Potassium 3.6 mmol/L (3.5-5.1); Sodium 139 mmol/L (136-145)
[2018-12-28] MEDS ORDERED: Insulin Glargine 40 UNITS in Pre-Filled Syringe 1 EACH SC SCH (09:00)
[2018-12-28] MEDS ORDERED: Insulin Glargine 30 UNITS in Pre-Filled Syringe 1 EACH SC SCH (09:00)
[2018-12-28] MEDS: HumaLOG 300 UNITS/3 ML VIAL SC SCH ×2 (09:44→12:56)
[2018-12-28] MEDS: Enoxaparin Sodium 40 MG/0.4 ML SYRINGE SC SCH (09:44)
[2018-12-28 12:15] VITALS: TEMP 98.2
[2018-12-28 15:36] VITALS: BP 138/99
--- NOTE | 2018-12-29 11:11 | DIS ---
DATE OF ADMISSION: 12/26/2018 DATE OF DISCHARGE: 12/28/2018 PRIMARY CARE PROVIDER: [facility]. DISCHARGE DIAGNOSES: 1. Diabetic ketoacidosis. 2. Uncontrolled type 1 diabetes mellitus. 3. Volume depletion. 4. Nausea and vomiting. 5. Tachyarrhythmia. 6. Hypomagnesemia. 7. Metabolic acidosis. 8. Acute kidney injury. 9. Hypertension. HOSPITAL COURSE: A 28-year-old female with known history of type 1 diabetes, admitted with acute onset of nausea and vomiting. The patient was found to have tachycardia as well as hyperglycemia with blood glucose in 300, associated with metabolic acidosis, ketonuria. Impression of early diabetic ketoacidosis was made as the patient admitted to noncompliance with insulin therapy. She was started on IV fluid therapy as well as subcutaneous insulin with improvement. Tachycardia persisted and was worse with activity. This was felt to be due to volume depletion and IV fluid therapy was escalated. There was a concern for SVT, hence the patient was started on low-dose Toprol-XL with improvement. She remained stable and was subsequently discharged. Of note, creatinine on presentation was 0.89 and did go back to 0.59 at discharge, suggestive of acute kidney injury. PHYSICAL EXAMINATION: VITAL SIGNS: Temperature 98.2, pulse 106, respiratory rate 16, SpO2 of 99% on room air, blood pressure is 138/99. GENERAL: Young female in no distress. Afebrile. Anicteric. Acyanotic. HEENT: Normocephalic, atraumatic. Oral mucosa is moist. CARDIOVASCULAR: Regular rhythm and rate, but tachycardic. Heart sounds 1 and 2 were normal. RESPIRATORY: Good air entry bilaterally with no crackle or rhonchi or use of accessory muscles. GI: Full, soft, nontender, nondistended with normal bowel sounds. EXTREMITIES: Grossly normal looking atraumatic with no edema or erythema. PATIENT'S LIBRARIAN: Conscious, alert, oriented x3 with appropriate mental status. Cranial nerves 2 through 12 are grossly intact. The patient is ambulant. DISCHARGE CONDITION: Improved. DISCHARGE DISPOSITION: Home. DISCHARGE MEDICATIONS: 1. Wellbutrin 300 mg p.o. daily. 2. Prozac 20 mg p.o. daily. 3. Risperdal 2 mg p.o. daily at bedtime. 4. Humalog sliding scale 0 to 15 units subcutaneously. 5. Humalog 4 units subcutaneously with meals. 6. Lantus 40 units subcutaneously daily. 7. Metoprolol succinate 25 mg p.o. daily. FOLLOWUP INSTRUCTIONS: 1. The patient was advised to check blood sugar 3 times a day and keep a log to be shown to the PCP on followup. 2. The patient is to follow with PCP in 7 days. This discharge took more than 33 minutes. Job ID: [id number]
== END 2018-12-28 15:57 | disposition home or self-care (01) | DRG 638 ==
LOC: ERS 02:45 → 2SW 06:09
PROVIDERS: ADMIT Family Medicine; ATTEND Family Medicine
DX: E10.10 Type 1 diabetes mellitus with ketoacidosis without coma (principal); E87.2 Acidosis; N17.9 Acute kidney failure, unspecified; F32.9 Major depressive disorder, single episode, unspecified; E83.42 Hypomagnesemia; R00.0 Tachycardia, unspecified; Z87.891 Personal history of nicotine dependence; Z79.899 Other long term (current) drug therapy; Z91.14 Patient's other noncompliance with medication regimen
CPT/HCPCS: 36415; 36416; 71045; 80048; 80053; 80069; 81003; 81015; 81025; 82010; 82330; 82803; 83036; 83690; 83735; 84100; 84145; 84703; 85025; 85652; 86140; 90471; 90732; 96361; 96374; 96375; G0009; J1650; J1815; J2405; J3475; J7121

== ENCOUNTER 2019-01-24 22:44 | Inpatient (IN) | payer OTHER ==
[2019-01-24 23:33] LABS: #Eosinphils 0.1 thou/uL (0.0-0.7); #Lymphocytes 1.7 thou/uL (1.20-3.40); #Monocytes 0.9 thou/uL (0.11-0.59); %Basophils 0.3 % (0.0-1.0); %Eosinophils 0.8 % (0.0-10.0); %Lymphocytes 10.3 % (21.0-51.0); %Monocytes 5.3 % (0.0-10.0); %Neutrophils 83.3 % (42.0-75.0); Hemoglobin 14.7 g/dL (12.0-16.0); Mean Corpuscular Volume 97.1 fL (78.0-98.0); Platelet Count 311 thou/uL (130-400); RBC Distribution Width 11.7 % (11.5-14.5); Red Blood Cell (RBC) Count 4.46 mill/uL (4.20-5.40); White Blood Cell (WBC) Count 16.9 thou/uL (4.8-10.8)
[2019-01-24 23:52] LABS: ALT (SGPT) 12 U/L (8-55); AST (SGOT) 12 U/L (5-34); Albumin 4.7 g/dL (3.5-5.0); Alkaline Phosphatase 89 U/L (40-110); Anion Gap 24 mmol/L (10-20); BUN (Urea Nitrogen) 14 mg/dL (7.0-18.7); Bilirubin, Total 0.6 mg/dL (0.2-1.2); Calc. Creatinine Clearance 0 mL/min (70-130); Calcium 9.4 mg/dL (7.8-10.44); Chloride 105 mmol/L (98-107); Estimated GFR-MDRD 49; Globulin 3.4 g/dL (2.4-3.5); Glucose 324 mg/dL (70-105); Potassium 4.4 mmol/L (3.5-5.1); Protein, Total 8.1 g/dL (6.0-8.3); Sodium 133 mmol/L (136-145)
[2019-01-24 23:58] LABS: Carbon Dioxide 8 mmol/L (22-29)
[2019-01-25 00:31] LABS: BHCG - Serum Negative (NEGATIVE); Pregs Control Background? CLEAR/WHITE (CLR/WHITE); Pregs Control Bar Appear? YES (CONTROL BAR)
[2019-01-25 00:37] LABS: Bicarbonate (HCO3v) 8.7 mmol/L (22.0-28.0); CO2 Tension (PvCO2) 26.6 mmHg (40.0-50.0); Calcium, Ionized 1.19 mmol/L (See Comments:); Chloride 111 mmol/L (98-107); Hemoglobin - Calc 16.9 g/dL (12.0-16.0); Potassium 4.6 mmol/L (3.5-5.1); Sodium 133 mmol/L (138-145); T. Carbon Dioxide 9.5 mmol/L (22.0-28.0); vO2 Saturation-calc 81.6 % (60.0-85.0)
[2019-01-25] MEDS ORDERED: Insulin Regular 100 units/100 ml in NS IVPB SCH (00:45)
[2019-01-25] MEDS ORDERED: Morphine 4 MG/ML VIAL ONE (01:51)
[2019-01-25] MEDS ORDERED: HYDROcodone/Acetaminophen 5/325 mg Tablet PO PRN (02:01)
[2019-01-25] MEDS ORDERED: Ondansetron PF 4 MG/2 ML Vial IVP PRN (02:01)
[2019-01-25] MEDS ORDERED: Dextrose 5 %-0.45 % NaCl 1,000 ML IV PRN (02:01)
[2019-01-25] MEDS ORDERED: CCU Electrolyte Replacement 1 EACH IVPB ONE (02:01)
[2019-01-25] MEDS ORDERED: NS 0.9% w/ 20 MEQ KCL 1,000 ML IV PRN (02:01)
[2019-01-25] MEDS ORDERED: Sodium Chloride 0.9% 1,000 ML IV PRN ×4 (02:01)
[2019-01-25] MEDS ORDERED: Acetaminophen 325 MG TAB PO PRN (02:01)
[2019-01-25] MEDS ORDERED: D5 1/2 NS w/20 mEq KCL 1,000 ML IV PRN (02:01)
[2019-01-25] MEDS ORDERED: Morphine 2 MG/ML SYRINGE SLOW IVP PRN (02:03)
[2019-01-25] MEDS ORDERED: Potassium Chloride 20 MEQ TAB PO PRN (02:11)
[2019-01-25] MEDS ORDERED: Magnesium 2 GM/50 ML 2 GM in Premix Bag 1 BAG IVPB PRN (02:11)
[2019-01-25] MEDS ORDERED: Potassium Chloride 40 MEQ in Sodium Chloride 0.9% 250 ML 250 ML IVPB PRN (02:11)
[2019-01-25] MEDS ORDERED: Potassium Phosphate 12 MMOL in Sodium Chloride 0.9% 250 ML 250 ML IV PRN (02:11)
[2019-01-25] MEDS ORDERED: PHOS-NAK 1 PKT PACK PO PRN ×2 (02:11)
[2019-01-25] MEDS ORDERED: Potassium Chloride 40 MEQ in Premix Bag 1 BAG IVPB PRN (02:11)
[2019-01-25] MEDS ORDERED: Potassium Phosphate 9 MMOL in Sodium Chloride 0.9% 100 ML IVPB PRN (02:11)
[2019-01-25] MEDS ORDERED: Magnesium Oxide 400 MG TAB PO PRN ×2 (02:11)
[2019-01-25] MEDS ORDERED: CCU ELECTROLYTE REPLACEMENT PROTOCOL FS PRN (02:11)
[2019-01-25] MEDS ORDERED: Potassium Phosphate 15 MMOL in Sodium Chloride 0.9% 250 ML 250 ML IV PRN (02:11)
[2019-01-25] MEDS ORDERED: HUMULIN R 100 UNITS in Sodium Chloride 0.9% 100 ML IVPB SCH (02:15)
[2019-01-25 02:59] LABS: Phosphorus 2.4 mg/dL (2.3-4.7)
--- NOTE | 2019-01-25 03:02 | HP ---
PRESENTING COMPLAINT: Headache. HISTORY OF PRESENT ILLNESS: Ms. Nicolas Langley is a 28-year-old female with history of type 1 diabetes mellitus, on insulin; depression, previous history of substance abuse, who presented because of feeling of headache. Headache is more of throbbing, mostly in the frontal area. Onset is since the last one day. The patient on presentation was noted with elevated glucose of over 300 as well as anion gap metabolic acidosis. She has been admitted for DKA. She denies any nausea or vomiting. She denies any diarrhea, fever, or chills. She admits to some intermittent dysuria, but denies any flank pain or polyuria. She states she takes Lantus 40 units regularly. She states her last dose was yesterday. She also states she takes insulin 6 units with meals. She states she will occasionally uses an extra sliding scale. She feels she still has headache which she still rated at 8/10 now. PAST MEDICAL HISTORY: Diabetes mellitus type 1; history of recurrent DKA, last episode was one month ago; history of depression, history of prior history of substance abuse. PAST SURGICAL HISTORY: None. FAMILY HISTORY: Significant for hypertension in the mother. SOCIAL HISTORY: The patient resides with family. Previous history of marijuana and tobacco use, but denied current use now. Denies any alcohol intake or illicit drug use. HOME MEDICATIONS: Reviewed include: 1. Bupropion. 2. Fluoxetine. 3. Lantus insulin. 4. Risperidone. 5. Humalog. ALLERGIES: NO KNOWN DRUG ALLERGY. PHYSICAL EXAMINATION: VITAL SIGNS: Currently, blood pressure of 112/65, pulse of 122, respiratory rate of 22, O2 saturation 99% on 2 L nasal cannula. HEENT: Head is atraumatic, normocephalic. Markedly dry oral mucosa. NECK: No JVD. No carotid bruit. RESPIRATORY: Good air entry. No crepitation. CARDIOVASCULAR: S1 and S2, tachycardic but no murmur. GI: Abdomen is full, soft, nontender. No organomegaly. No suprapubic fullness. No CVA tenderness. EXTREMITIES: No calf tenderness. No pedal edema. NEUROLOGICAL: The patient is alert, conversant. No neurological focal motor deficit. LABORATORY DATA: WBC 16.9, hemoglobin 15, and platelet 311. Neutrophils 83%, but no bands. PH of 7.12, pCO2 of 26, pO2 of 59, creatinine of 1.3, bicarb of 8, anion gap of 24; potassium 4.4, repeat of 4.6; sodium 133. AST and alkaline phosphatase normal. Beta hydroxybutyrate 6.5. IMAGING STUDIES: Chest x-ray shows no acute intrathoracic processes. IMPRESSION: 1. Recurrent diabetic ketoacidosis. 2. Persistent headache. 3. History of depression. 4. Possible urinary tract infection. PLAN: We will manage the patient for the following. 1. DKA. We will admit to the ICU. We will start empirical antibiotics with Levaquin. We will start insulin with insulin drip protocol. Continue glucose q.1 hour. Follow anion gap with BMP q.4. Adjust insulin per protocol. We will continue to follow. We will obtain phosphorus level and replete if low. The patient might need DM education as well as Endocrine referral on discharge. 2. Possible UTI. Follow urinalysis. We will start empirical Levaquin. 3. History of depression. Continue home regimen. 4. DVT prophylaxis, subcutaneous Lovenox. 5. Advanced directives. The patient is full code. TIME SPENT: Total time spent in review of record, discussion with patient, and evaluation greater than 60 minutes. Job ID: [id number]
[2019-01-25 03:05] LABS: BUN (Urea Nitrogen) 12 mg/dL (7.0-18.7); Calc. Creatinine Clearance 0 mL/min (70-130); Calcium 7.9 mg/dL (7.8-10.44); Carbon Dioxide Less than 8 mmol/L (22-29); Chloride 112 mmol/L (98-107); Estimated GFR-MDRD 70; Glucose 291 mg/dL (70-105); Phosphorus 2.4 mg/dL (2.3-4.7); Potassium 4.2 mmol/L (3.5-5.1); Sodium 134 mmol/L (136-145)
[2019-01-25 03:13] VITALS: BMI 28.2
[2019-01-25] MEDS: NS 0.9% w/ 20 MEQ KCL 1,000 ML IV PRN ×2 (03:19→05:10)
[2019-01-25 03:42] LABS: Magnesium 1.7 mg/dL (1.6-2.6)
[2019-01-25 04:22] LABS: Phosphorus 1.7 mg/dL (2.3-4.7)
[2019-01-25 06:36] LABS: Anion Gap 11 mmol/L (10-20); BUN (Urea Nitrogen) 9 mg/dL (7.0-18.7); Calc. Creatinine Clearance 109 mL/min (70-130); Calcium 7.4 mg/dL (7.8-10.44); Carbon Dioxide 10 mmol/L (22-29); Chloride 119 mmol/L (98-107); Estimated GFR-MDRD 83; Glucose 129 mg/dL (70-105); Potassium 4.3 mmol/L (3.5-5.1); Sodium 136 mmol/L (136-145)
[2019-01-25] MEDS ORDERED: Potassium Phosphate 30 MMOL in Sodium Chloride 0.9% 500 ML IVPB SCH (07:30)
[2019-01-25] MEDS: Famotidine 20 MG TAB PO SCH ×2 (08:52→20:41)
[2019-01-25] MEDS: FLUoxetine HCl 20 MG CAP PO SCH (08:52)
[2019-01-25] MEDS: Bupropion 150 MG XL TAB PO SCH (08:52)
[2019-01-25] MEDS: Enoxaparin Sodium 30 MG/0.3 ML SYRINGE SC SCH (08:52)
[2019-01-25] MEDS: Insulin Glargine 25 UNITS in Pre-Filled Syringe 1 EACH SC SCH ×2 (08:59→21:29)
--- NOTE | 2019-01-25 10:27 | PDOC.HOSPP ---
- Subjective Encounter Date: 01/25/19 Encounter Time: 10:25 Subjective: Ms. Valenzuela was seen today in follow-up of DKA. She says her headache has improved. She denies any nausea or vomiting or abdominal pain. - Objective Vital Signs & Weight: Vital Signs (12 hours) Temp Pulse Ox 01/25/19 07:00 98.3 F 01/25/19 03:00 98.5 F 100 01/25/19 02:55 98.5 F Weight Weight 149 lb 7.574 oz Most Recent Monitor Data Heart Rate from ECG 124 NIBP 113/71 NIBP BP-Mean 85 Respiration from ECG 23 SpO2 100 I&O: 01/24/19 01/25/19 01/26/19 06:59 06:59 06:59 Intake Total 1765.3 1131 Output Total 725 500 Balance 1040.3 631 Result Diagrams: 01/24/19 23:19 01/25/19 05:53 Additional Labs: Accuchecks 01/25/19 01/25/19 01/25/19 09:55 08:44 07:44 POC Glucose 167 H 101 79 01/25/19 01/25/19 01/25/19 06:02 04:55 03:47 POC Glucose 125 H 137 H 185 H 01/25/19 01/25/19 02:20 00:36 POC Glucose 259 H 359 H Hospitalist ROS - Medication Medications: Active Medications Generic Name Dose Route Start Last Admin Trade Name Freq PRN Reason Stop Dose Admin Bupropion HCl 300 mg 01/25/19 09:00 01/25/19 08:52 Wellbutrin Xl PO 300 mg QAM ELIZABETH Administration Enoxaparin Sodium 30 mg 01/25/19 09:00 01/25/19 08:52 Lovenox SC 30 mg 0900 ELIZABETH Administration Famotidine 20 mg 01/25/19 09:00 01/25/19 08:52 Pepcid PO 20 mg BID ELIZABETH Administration Fluoxetine HCl 20 mg 01/25/19 09:00 01/25/19 08:52 Prozac PO 20 mg DAILY ELIZABETH Administration Potassium Chloride/Dextrose/Sod Cl 1,000 mls @ 250 mls/hr 01/25/19 02:01 08:45 D5 1/2 Ns W/20 Meq Kcl IV 1,000 mls .Q4H PRN Administration Step 4 of DKA Protocol Protocol Potassium Chloride/Sodium Chloride 1,000 mls @ 500 mls/hr 01/25/19 02:01 05:10 Ns 0.9% W/ 20 Meq Kcl IV 1,000 mls .Q2H PRN Administration Step 2 of DKA Protocol Protocol Insulin Glargine 25 units/ 0.25 mls @ 0 mls/hr 01/25/19 09:00 01/25/19 08:59 Miscellaneous Medication SC 0.2 mls BID ELIZABETH Administration Potassium Phosphate 30 mmol/ 510 mls @ 83.3 mls/hr 01/25/19 07:30 01/25/19 07 :52 Sodium Chloride IVPB 01/25/19 13:38 510 mls NOW ELIZABETH Administration Sodium Chloride 10 ml 01/25/19 09:00 01/25/19 08:53 Flush - Normal Saline IVF 10 ml Q12HR ELIZABETH Administration - Exam Eye: PERRL Heart: RRR, no murmur, no gallops, no rubs, normal peripheral pulses Respiratory: CTAB, no wheezes, no rales, no ronchi, normal chest expansion, no tachypnea, normal percussion Gastrointestinal: soft, non-tender, non-distended, normal bowel sounds, no palpable masses, no hepatomegaly Extremities: no cyanosis, 1+ LE edema Hosp A/P (1) Abnormal blood electrolyte level Code(s): E87.8 - OTH DISORDERS OF ELECTROLYTE AND FLUID BALANCE, NEC Status: Acute (2) Anxiety and depression Code(s): F41.8 - OTHER SPECIFIED ANXIETY DISORDERS Status: Chronic - Plan * DKA- 1- her AG has closed * She has been taken off the insulin drip * It is unclear what her regimen is at home- will need to discuss with her mother * She can be moved out the ICU if she continues to be stable
[2019-01-25] MEDS: Dextrose 5 %-0.45 % NaCl 1,000 ML IV SCH ×2 (10:59→16:55)
[2019-01-25 12:40] LABS: White Blood Cell (WBC) Count 13.7 thou/uL (4.8-10.8)
[2019-01-25 12:41] LABS: Hemoglobin 13.8 g/dL (12.0-16.0); Mean Corpuscular HGB CONC 33.6 g/dL (32.0-36.0); Mean Corpuscular Hemoglobin 33.2 pg (27.0-31.0); Mean Corpuscular Volume 98.6 fL (78.0-98.0); Red Blood Cell (RBC) Count 4.16 mill/uL (4.20-5.40)
[2019-01-25 12:42] LABS: MDiff Complete? YES; Mean Platelet Volume 9.5 fL (7.4-10.4); Platelet Count 222 thou/uL (130-400); RBC Distribution Width 11.6 % (11.5-14.5)
[2019-01-25 13:05] LABS: Band 4 % (5-11); Eosinophils 1 % (0-10); Lymphocytes 21 % (21-51); Metamyelocyte 1 % (0-0); Monocytes 6 % (0-10); Myelocyte 1 % (0-0); Neutrophil 65 % (42-75); Reactive Lymphocytes 1 % (0-10)
[2019-01-25] MEDS ORDERED: Dextrose 5% in Water 1,000 ML IV PRN (13:33)
[2019-01-25] MEDS ORDERED: Dextrose 50% Abboject 50 ML SYRINGE SLOW IVP PRN (13:33)
[2019-01-25] MEDS: HumaLOG 300 UNITS/3 ML VIAL SC PRN ×2 (15:00→21:30)
[2019-01-25 17:21] LABS: Bacteria/HPF None Seen HPF (None Seen); Bilirubin Negative (Negative); Blood, Urine Negative (Negative); Clarity Clear (Clear); Glucose, Urine (Dipstick) Greater than 1000 mg/dL (Negative); Leukocyte Negative Leu/uL (Negative); Mucous/LPF Rare LPF (<2+); Nitrite Negative (Negative); Protein, Urine (Dipstick) Negative (Neg-Trace); RBC/HPF None Seen HPF (0-3); Squamous Epithelial 0-3 HPF (0-3); Urobilinogen Normal mg/dL (Less than 2); WBC/HPF 0-3 HPF (0-3)
[2019-01-25] MEDS ORDERED: FLU VACC QS2019-20(6MOS UP)/PF 60 MCG/0.5 ML SYRINGE IM ONE (21:00)
[2019-01-25] MEDS: risperiDONE 1 MG TAB PO SCH (21:41)
[2019-01-26] MEDS: Dextrose 5 %-0.45 % NaCl 1,000 ML IV SCH ×3 (00:45→15:45)
[2019-01-26] MEDS: HumaLOG 300 UNITS/3 ML VIAL SC PRN ×4 (05:36→19:53)
[2019-01-26 06:19] LABS: Anion Gap 11 mmol/L (10-20); BUN (Urea Nitrogen) 5 mg/dL (7.0-18.7); Calc. Creatinine Clearance 130 mL/min (70-130); Calcium 8.3 mg/dL (7.8-10.44); Carbon Dioxide 19 mmol/L (22-29); Chloride 110 mmol/L (98-107); Estimated GFR-MDRD Greater than 90; Glucose 228 mg/dL (70-105); Sodium 137 mmol/L (136-145)
[2019-01-26] MEDS: FLUoxetine HCl 20 MG CAP PO SCH (08:58)
[2019-01-26] MEDS: Enoxaparin Sodium 30 MG/0.3 ML SYRINGE SC SCH (08:59)
[2019-01-26] MEDS: Famotidine 20 MG TAB PO SCH ×2 (08:59→19:51)
[2019-01-26] MEDS: Insulin Glargine 25 UNITS in Pre-Filled Syringe 1 EACH SC SCH ×2 (08:59→19:53)
[2019-01-26] MEDS: Bupropion 150 MG XL TAB PO SCH (09:05)
[2019-01-26] MEDS ORDERED: Potassium Chloride 20 MEQ TAB PO SCH ×2 (09:15→13:00)
--- NOTE | 2019-01-26 15:51 | PDOC.HOSPP ---
- Subjective Encounter Date: 01/26/19 Encounter Time: 15:48 Subjective: Ms. Valenzuela was seen today in follow-up of DKA > She does not have any new complaints. - Objective Vital Signs & Weight: Vital Signs (12 hours) Temp Pulse Resp BP Pulse Ox 01/26/19 07:45 97.6 F 111 H 16 115/78 96 Weight Weight 149 lb 7.574 oz Most Recent Monitor Data Heart Rate from ECG 117 NIBP 128/84 NIBP BP-Mean 98 Respiration from ECG 22 SpO2 100 I&O: 01/25/19 01/26/19 01/27/19 06:59 06:59 06:59 Intake Total 1765.3 3531 Output Total 725 1277 Balance 1040.3 2254 Result Diagrams: 01/25/19 12:17 01/26/19 05:21 Additional Labs: Accuchecks 01/26/19 01/26/19 01/25/19 11:29 05:17 20:53 POC Glucose 276 H 223 H 323 H Hospitalist ROS - Medication Medications: Active Medications Generic Name Dose Route Start Last Admin Trade Name Freq PRN Reason Stop Dose Admin Bupropion HCl 300 mg 01/25/19 09:00 01/26/19 09:05 Wellbutrin Xl PO 300 mg QAM ELIZABETH Administration Enoxaparin Sodium 30 mg 01/25/19 09:00 01/26/19 08:59 Lovenox SC 30 mg 0900 ELIZABETH Administration Famotidine 20 mg 01/25/19 09:00 01/26/19 08:59 Pepcid PO 20 mg BID ELIZABETH Administration Fluoxetine HCl 20 mg 01/25/19 09:00 01/26/19 08:58 Prozac PO 20 mg DAILY ELIZABETH Administration Insulin Glargine 25 units/ 0.25 mls @ 0 mls/hr 01/25/19 09:00 01/26/19 08:59 Miscellaneous Medication SC 0.25 mls BID ELIZABETH Administration Dextrose/Sodium Chloride 1,000 mls @ 125 mls/hr 01/25/19 10:45 01/26/19 15:45 D5 1/2 Ns IV 1,000 mls .Q8H ELIZABETH Administration Insulin Human Lispro 0 units 01/25/19 13:33 01/26/19 12:12 Humalog SC 6 unit .MODERATE SLIDING SC PRN Administration Moderate Correctional Scale Insulin Human Lispro 0 units 01/25/19 13:33 01/25/19 21:30 Humalog SC 4 units/m2 .BEDTIME SLIDING SC PRN Administration Bedtime Correctional Scale Levofloxacin 750 mg 01/26/19 06:00 01/26/19 05:08 Levaquin PO 750 mg 0600 ELIZABETH Administration Risperidone 2 mg 01/25/19 21:00 01/25/19 21:41 Risperidone PO 2 mg HS ELIZABETH Administration Sodium Chloride 10 ml 01/25/19 09:00 01/26/19 09:00 Flush - Normal Saline IVF Not Given Q12HR ELIZABETH - Exam Eye: PERRL Heart: RRR, no murmur, no gallops, no rubs, normal peripheral pulses Respiratory: CTAB, no wheezes, no rales, no ronchi, normal chest expansion Gastrointestinal: soft, non-tender, non-distended, normal bowel sounds, no palpable masses, no hepatomegaly Hosp A/P (1) Abnormal blood electrolyte level Code(s): E87.8 - OTH DISORDERS OF ELECTROLYTE AND FLUID BALANCE, NEC Status: Acute (2) Anxiety and depression Code(s): F41.8 - OTHER SPECIFIED ANXIETY DISORDERS Status: Chronic - Plan * DKA- 1- resolved * I am still unclear if she is taking the Lantus insulin. she is not able to tell me how many units, or whem she normally takes it. * Will try to discuss with her mother * Will see if she will qualify for home health to aid in her management at home.
--- NOTE | 2019-01-26 18:01 | PDOC.EVN ---
Event Note - Event Note Event Note: I spoke with the patient's mother over the phone. She tells me that her daughter is responsible for giving herself iinsulin, and that she should know how much and when she takes it. I have asked her to come to the hospital tomorrow afternoon, so we can clarify the situation together ( with the patient) .
[2019-01-26] MEDS: risperiDONE 1 MG TAB PO SCH (19:51)
[2019-01-27] MEDS: Dextrose 5 %-0.45 % NaCl 1,000 ML IV SCH ×3 (02:30→18:27)
[2019-01-27] MEDS: HumaLOG 300 UNITS/3 ML VIAL SC PRN ×3 (05:28→20:38)
[2019-01-27] MEDS: Enoxaparin Sodium 30 MG/0.3 ML SYRINGE SC SCH (08:36)
[2019-01-27] MEDS: FLUoxetine HCl 20 MG CAP PO SCH (08:36)
[2019-01-27] MEDS: Famotidine 20 MG TAB PO SCH ×2 (08:36→20:36)
[2019-01-27] MEDS: Insulin Glargine 25 UNITS in Pre-Filled Syringe 1 EACH SC SCH ×2 (08:37→20:36)
[2019-01-27 09:13] LABS: Anion Gap 9 mmol/L (10-20); BUN (Urea Nitrogen) Less than 4 mg/dL (7.0-18.7); Calc. Creatinine Clearance 157 mL/min (70-130); Calcium 8.8 mg/dL (7.8-10.44); Carbon Dioxide 28 mmol/L (22-29); Chloride 106 mmol/L (98-107); Estimated GFR-MDRD Greater than 90; Glucose 130 mg/dL (70-105); Sodium 140 mmol/L (136-145)
[2019-01-27] MEDS: Bupropion 150 MG XL TAB PO SCH (10:15)
--- NOTE | 2019-01-27 17:17 | PDOC.HOSPP ---
- Subjective Encounter Date: 01/27/19 Encounter Time: 17:11 Subjective: Ms. Valenzuela was seen today in follow-up of DKA. She does not have any new complaints. - Objective Vital Signs & Weight: Vital Signs (12 hours) Temp Pulse Resp BP Pulse Ox 01/27/19 08:00 98.3 F 102 H 18 133/80 98 Weight Weight 149 lb 7.574 oz Most Recent Monitor Data Heart Rate from ECG 117 NIBP 128/84 NIBP BP-Mean 98 Respiration from ECG 22 SpO2 100 I&O: 01/26/19 01/27/19 01/28/19 06:59 06:59 06:59 Intake Total 3531 Output Total 1277 Balance 2254 Result Diagrams: 01/25/19 12:17 01/27/19 08:43 Additional Labs: Accuchecks 01/27/19 01/27/19 01/27/19 16:38 15:18 11:29 POC Glucose 142 H 184 H 212 H 01/27/19 01/26/19 01/26/19 04:50 23:59 19:40 POC Glucose 249 H 175 H 288 H Hospitalist ROS - Medication Medications: Active Medications Generic Name Dose Route Start Last Admin Trade Name Freq PRN Reason Stop Dose Admin Bupropion HCl 300 mg 01/25/19 09:00 01/27/19 10:15 Wellbutrin Xl PO 300 mg QAM ELIZABETH Administration Enoxaparin Sodium 30 mg 01/25/19 09:00 01/27/19 08:36 Lovenox SC 30 mg 0900 ELIZABETH Administration Famotidine 20 mg 01/25/19 09:00 01/27/19 08:36 Pepcid PO 20 mg BID ELIZABETH Administration Fluoxetine HCl 20 mg 01/25/19 09:00 01/27/19 08:36 Prozac PO 20 mg DAILY ELIZABETH Administration Insulin Glargine 25 units/ 0.25 mls @ 0 mls/hr 01/25/19 09:00 01/27/19 08:37 Miscellaneous Medication SC 0.25 mls BID ELIZABETH Administration Dextrose/Sodium Chloride 1,000 mls @ 125 mls/hr 01/25/19 10:45 01/27/19 08:36 D5 1/2 Ns IV 1,000 mls .Q8H ELIZABETH Administration Insulin Human Lispro 0 units 01/25/19 13:33 01/27/19 13:16 Humalog SC 4 unit .MODERATE SLIDING SC PRN Administration Moderate Correctional Scale Insulin Human Lispro 0 units 01/25/19 13:33 01/26/19 19:53 Humalog SC 3 units/m2 .BEDTIME SLIDING SC PRN Administration Bedtime Correctional Scale Levofloxacin 750 mg 01/26/19 06:00 01/27/19 05:27 Levaquin PO 750 mg 0600 ELIZABETH Administration Risperidone 2 mg 01/25/19 21:00 01/26/19 19:51 Risperidone PO 2 mg HS ELIZABETH Administration Sodium Chloride 10 ml 01/25/19 09:00 01/27/19 08:38 Flush - Normal Saline IVF Not Given Q12HR ELIZABETH - Exam Eye: PERRL Heart: RRR, no murmur, no gallops, no rubs, normal peripheral pulses Respiratory: CTAB, no wheezes, no rales, no ronchi, normal chest expansion, no tachypnea Gastrointestinal: soft, non-tender, non-distended, normal bowel sounds, no palpable masses, no hepatomegaly, no splenomegaly Extremities: no cyanosis, no edema Hosp A/P (1) Abnormal blood electrolyte level Code(s): E87.8 - OTH DISORDERS OF ELECTROLYTE AND FLUID BALANCE, NEC Status: Acute (2) Anxiety and depression Code(s): F41.8 - OTHER SPECIFIED ANXIETY DISORDERS Status: Chronic - Plan * DKA- 1- resolved * Her mother and sister were at the bedside this evening. After some discussion back and forth , the patient finally offered the information that she knows when to take the Basaglar insulin, and that she takes it in the morning. She admits that she only took 16 units rather than the prescribed 40 units, because the PEN ran out. She had planed to take the remainder, but she got distracted by a headache, and didn;t go to the refrigerator to get the other PEN. Then she started feeling sick and found herself in the hospital. We discussed the instructions for how to take her insulin both in Australian and in [place]ese. She was able to tell me this back as well as her mother and sister. (The instructions she had from the clinic were in Australian)- will send her home with instructions in both Australian and [place]ese ( so her mother can help her out). * Will replace potassium, and can be discharged home later today
[2019-01-27] MEDS ORDERED: Potassium Chloride 20 MEQ in Premix Bag 1 BAG IVPB SCH (17:30)
[2019-01-27] MEDS ORDERED: Potassium Chloride 20 MEQ TAB PO SCH (17:30)
[2019-01-27 19:17] LABS: Potassium 3.3 mmol/L (3.5-5.1)
[2019-01-27 19:35] VITALS: BP 114/76; TEMP 98.8
[2019-01-27] MEDS: risperiDONE 1 MG TAB PO SCH (20:36)
[2019-01-27 20:41] LABS: Potassium 3.9 mmol/L (3.5-5.1)
--- NOTE | 2019-01-28 05:56 | PQF ---
SAP Education Manager Crystal Reports Winform ViewerTANYA DUNN TONI MD [id number] [id number] CLINICAL DOCUMENTATION CLARIFICATION FORM: POST DISCHARGE Addendum to original discharge summary date: ____ Late entry note date: __ DATE: 01/28/2019 ATTN:MATT MAS MD Please exercise your independent, professional judgment in responding to the clarification form. Clinical indicators are provided on the bottom of this form for your review Please check appropriate box(s) to clarify if the following diagnosis has been ruled in or ruled out: ___UTI____(CDI/Coding list diagnosis here) [ ] Ruled in diagnosis [ ] Continue to treat [ ] Resolved [ ] Ruled out diagnosis [ ] Cannot rule out diagnosis [ ] Other diagnosis [ ] Unable to determine In addition, please specify: Present on Admission (POA): [ ] Yes [ ] No [ ] Unable to determine For continuity of documentation, please document condition throughout progress notes and discharge summary. Thank You. CLINICAL INDICATORS - SIGNS / SYMPTOMS / LABS Possible Urinary Tract infection - Documented in H&p on 01/25 by Endy calhoun MD Elevated WBC 16.9 on 01/24 and 13.7 on 01/25 - Documented in Laboratory Abnormal Blood electrolyte level - Documented in Hospital PNs on 01/25 by MATT MAS MD [employer] DKA DM type 1 TREATMENTS Follow urinalysis and we will start empirical Levaquin - Documented in H&p on by Endy calhoun MD Levofloxacin 750 mg - Medication report [employer] Education Manager Crystal Reports Winform Viewer(This form is maintained as a part of the permanent medical record) 2014 [employer]. All Rights Reserved Nikki [email or web address] [not provided] MTDD
--- NOTE | 2019-01-28 06:21 | DIS ---
DATE OF ADMISSION: 01/25/2019 DATE OF DISCHARGE: 01/27/2019 PRIMARY CARE PHYSICIAN: Dr. Barone. DISCHARGE DISPOSITION: Home. DISCHARGE DIAGNOSES: 1. Diabetic ketoacidosis. 2. Diabetes mellitus type 1. 3. Depression. 4. Previous history of substance abuse. DISCHARGE MEDICATIONS: The patient is being discharged on, 1. Basaglar insulin/glargine insulin 40 units subcu daily. 2. NovoLog 6 units t.i.d. with meals. 3. Risperdal 2 mg at bedtime. 4. Wellbutrin XL 300 mg daily. 5. Metoprolol 25 mg XL daily. CODE STATUS: Full code. ALLERGIES: NO KNOWN DRUG ALLERGIES. HOSPITAL COURSE: Ms. Valenuzela is a pleasant 28-year-old female, who was admitted to the hospital after she was found to be in DKA. The full details of which are outlined in the history and physical. At first, the patient did not know how she came to have an elevated blood sugar. She was very vague about when and how much she was supposed to take her long-acting insulin, the Basaglar, it was not until I asked her mother to come to the hospital so that we could try to clear this up. When she finally admitted several questionings that she had taken only 16 units of the Basaglar the day of admission, she says that is when had run out. She was supposed to take the remainder to make up to a total of 40 units, but she got distracted when she started having a headache and then she started feeling sick and then she basically came to the hospital. She has always been very clear as to how much of her short-acting insulin she is supposed to take with each meal, so I suspect this is at least in part what may have happened that caused her to go into DKA. Her mother brought in the information from the clinic with the instructions for her insulin, but her mother admits that Hungarian is her second language and I do not believe she was able to read the instructions very well. We went over this in detail both in Hungarian and in Danish, and on this occasion, we will have her information packet printed in both languages. This way her mother can help enforce the regimen at home. The patient was able to speak back her instructions, her mother as well, and therefore, we will be discharging her home. I have asked her mother to move up her psychiatric appointment. She was able to clarify that she has been seeing a psychiatrist. She last saw her psychiatrist about a month ago, and she had an appointment next month, and she will be making an earlier appointment. As well, we discussed that she needs to see her primary care physician in a couple of days and also to follow up with her disabilities services officer, she actually has an disabilities services officer who helps with her diabetes as well. After her potassium is replaced today, she will be discharged home. Job ID: [id number]
== END 2019-01-27 21:49 | disposition home or self-care (01) | DRG 639 ==
LOC: ERS 22:44 → CCU 01-25 02:52 → T4-A 01-25 16:20
PROVIDERS: ADMIT Internal Medicine; ATTEND Internal Medicine
DX: E10.10 Type 1 diabetes mellitus with ketoacidosis without coma (principal); Z79.4 Long term (current) use of insulin; F32.9 Major depressive disorder, single episode, unspecified; Z79.899 Other long term (current) drug therapy; F41.9 Anxiety disorder, unspecified; E87.8 Other disorders of electrolyte and fluid balance, not elsewhere classified
CPT/HCPCS: 36415; 36416; 80048; 80053; 81001; 82010; 82330; 82435; 82803; 83735; 83930; 84100; 84132; 84295; 84703; 85014; 85025; 90471; 90686; 96361; 96365; 96375; G0008; J1650; J1815; J2270; J3480; J3490; J7050

== ENCOUNTER 2019-07-16 12:30 | Emergency (ER) | payer OTHER ==
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
--- NOTE | 2019-07-16 13:30 | CT ---
CT face noncontrast HISTORY: Fall. Injury. FINDINGS: The mandible, globes, and zygomatic arches are intact. No fracture or dislocation evident. No orbital hematoma. Near complete homogeneous opacification of the left maxillary sinus. Configuration suggests a large m ucus retention cyst without aggressive qualities. Smaller polyp or mucous retention cyst at the anterior wall of the right maxillary sinus. IMPRESSION : No acute injury demonstrated. 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
[2019-07-16] MEDS ORDERED: Ketorolac Tromethamine 30 MG/ML VIAL ONE (13:32)
[2019-07-16] MEDS ORDERED: Adacel (T-DAP) 0.5 ML SYRINGE ONE ×2 (14:07→14:09)
--- NOTE | 2019-07-16 14:09 | RAD ---
LEFT KNEE FOUR VIEW: 07/16/19 HISTORY: Fall. Trauma. COMPARISON: None. FINDINGS: No acute fracture or malalignment. No significant joint effusion. IMPRESSION: No acute osseous abnormality. POS: HOME
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
--- NOTE | 2019-07-16 14:11 | RAD ---
RIGHT KNEE FOUR VIEW: 07/16/19 HISTORY: Fall. Trauma. COMPARISON: None. FINDINGS: No fracture. No malalignment. Soft tissues are unremarkable. IMPRESSION: No acute osseous abnormality. Mild pretibial soft tissue swelling. POS: HOME
== END 2019-07-16 14:55 | disposition home or self-care (01) ==
LOC: ERS 12:30
DX: S00.81XA Abrasion of other part of head, initial encounter (principal); S50.812A Abrasion of left forearm, initial encounter; S60.511A Abrasion of right hand, initial encounter; S80.212A Abrasion, left knee, initial encounter; S80.211A Abrasion, right knee, initial encounter; S20.112A Abrasion of breast, left breast, initial encounter; I10 Essential (primary) hypertension; E10.9 Type 1 diabetes mellitus without complications; F32.9 Major depressive disorder, single episode, unspecified; Z79.899 Other long term (current) drug therapy; V29.9XXA Motorcycle rider (driver) (passenger) injured in unspecified traffic accident, initial encounter
CPT/HCPCS: 70486; 90471; 90715; 96372; J1885

== ENCOUNTER 2020-01-08 23:46 | Emergency (ER) | payer OTHER ==
[2020-01-09 00:45] LABS: #Basophils 0.1 thou/uL (0.0-0.2); #Eosinphils 0.3 thou/uL (0.0-0.7); #Lymphocytes 3.7 thou/uL (1.20-3.40); #Monocytes 0.7 thou/uL (0.11-0.59); #Neutrophils 7.3 thou/uL (1.40-6.50); %Eosinophils 2.3 % (0.0-10.0); %Lymphocytes 30.4 % (21.0-51.0); %Monocytes 5.9 % (0.0-10.0); %Neutrophils 60.5 % (42.0-75.0); Hemoglobin 13.8 g/dL (12.0-16.0); Mean Corpuscular HGB CONC 34.5 g/dL (32.0-36.0); Mean Corpuscular Hemoglobin 32.1 pg (27.0-31.0); Mean Corpuscular Volume 93.3 fL (78.0-98.0); Mean Platelet Volume 8.7 fL (7.4-10.4); Platelet Count 285 thou/uL (130-400); RBC Distribution Width 11.5 % (11.5-14.5); Red Blood Cell (RBC) Count 4.28 mill/uL (4.20-5.40); White Blood Cell (WBC) Count 12.1 thou/uL (4.8-10.8)
[2020-01-09 01:08] LABS: ALT (SGPT) 13 U/L (8-55); AST (SGOT) 13 U/L (5-34); Alkaline Phosphatase 94 U/L (40-110); Anion Gap 15 mmol/L (10-20); BUN (Urea Nitrogen) 19 mg/dL (7.0-18.7); Bilirubin, Total 0.2 mg/dL (0.2-1.2); Calc. Creatinine Clearance 0 mL/min (70-130); Calcium 9.2 mg/dL (7.8-10.44); Carbon Dioxide 24 mmol/L (22-29); Chloride 100 mmol/L (98-107); Estimated GFR-MDRD Greater than 90; Globulin 3.1 g/dL (2.4-3.5); Glucose 321 mg/dL (70-105); Potassium 3.5 mmol/L (3.5-5.1); Protein, Total 7.1 g/dL (6.0-8.3); Sodium 135 mmol/L (136-145)
[2020-01-09] MEDS ORDERED: Insulin Regular 300 UNITS/3 ML VIAL ONE (01:20)
== END 2020-01-09 02:07 | disposition home or self-care (01) ==
LOC: ERS 23:46
DX: E10.65 Type 1 diabetes mellitus with hyperglycemia (principal); I10 Essential (primary) hypertension; Z79.01 Long term (current) use of anticoagulants; Z79.899 Other long term (current) drug therapy
CPT/HCPCS: 36416; 80053; 85025; 94760; 96374; J1815

== ENCOUNTER 2020-01-13 23:17 | Emergency (ER) | payer OTHER | END 2020-01-14 00:19 | disposition home or self-care (01) | LOC: ERS 23:17 | DX: E10.9 Type 1 diabetes mellitus without complications (principal); I10 Essential (primary) hypertension; Z79.899 Other long term (current) drug therapy | CPT/HCPCS: 36416; 99284 ==

== ENCOUNTER 2020-05-25 03:14 | Emergency (ER) | payer OTHER | END 2020-05-25 04:17 | disposition home or self-care (01) | LOC: ERS 03:14 | DX: E10.65 Type 1 diabetes mellitus with hyperglycemia (principal); I10 Essential (primary) hypertension; Z79.899 Other long term (current) drug therapy | CPT/HCPCS: 36416; 99281 ==

== ENCOUNTER 2020-10-29 02:15 | Emergency (ER) | payer OTHER ==
[2020-10-29 03:08] LABS: #Basophils 0.1 thou/uL (0.0-0.2); #Eosinphils 0.1 thou/uL (0.0-0.7); #Lymphocytes 2.2 thou/uL (1.20-3.40); #Monocytes 0.5 thou/uL (0.11-0.59); %Basophils 0.8 % (0.0-1.0); %Eosinophils 0.9 % (0.0-10.0); %Neutrophils 73.3 % (42.0-75.0); BHCG - Serum Negative (NEGATIVE); Hemoglobin 13.3 g/dL (12.0-16.0); Mean Corpuscular HGB CONC 34.1 g/dL (32.0-36.0); Mean Corpuscular Hemoglobin 33.1 pg (27.0-31.0); Mean Platelet Volume 9.1 fL (7.4-10.4); Platelet Count 305 thou/uL (130-400); Pregs Control Background? CLEAR/WHITE (CLR/WHITE); Pregs Control Bar Appear? YES (CONTROL BAR); RBC Distribution Width 11.9 % (11.5-14.5); Red Blood Cell (RBC) Count 4.02 mill/uL (4.20-5.40); White Blood Cell (WBC) Count 10.9 thou/uL (4.8-10.8)
[2020-10-29 03:26] LABS: ALT (SGPT) 14 U/L (8-55); AST (SGOT) 14 U/L (5-34); Albumin 3.9 g/dL (3.5-5.0); Alkaline Phosphatase 79 U/L (40-110); Anion Gap 14 mmol/L (10-20); BUN (Urea Nitrogen) 12 mg/dL (7.0-18.7); Bilirubin, Total 0.2 mg/dL (0.2-1.2); Calc. Creatinine Clearance 0 mL/min (70-130); Calcium 9.6 mg/dL (7.8-10.44); Carbon Dioxide 23 mmol/L (22-29); Chloride 104 mmol/L (98-107); Globulin 2.8 g/dL (2.4-3.5); Glucose 290 mg/dL (70-105); Potassium 4.1 mmol/L (3.5-5.1); Protein, Total 6.7 g/dL (6.0-8.3); Sodium 137 mmol/L (136-145)
[2020-10-29] MEDS ORDERED: Ondansetron ODT 4 MG TAB ONE (04:18)
== END 2020-10-29 04:48 | disposition home or self-care (01) ==
LOC: ERS 02:15
DX: R05 Cough (principal); E10.9 Type 1 diabetes mellitus without complications; I10 Essential (primary) hypertension; Z79.4 Long term (current) use of insulin; Z79.899 Other long term (current) drug therapy
CPT/HCPCS: 36415; 80053; 84703; 85025; 99284; Q0162

== ENCOUNTER 2020-11-10 01:37 | Emergency (ER) | payer OTHER ==
[2020-11-10 02:30] LABS: #Basophils 0.1 thou/uL (0.0-0.2); #Eosinphils 0.2 thou/uL (0.0-0.7); #Lymphocytes 2.1 thou/uL (1.20-3.40); #Monocytes 0.8 thou/uL (0.11-0.59); #Neutrophils 6.5 thou/uL (1.40-6.50); %Basophils 0.8 % (0.0-1.0); %Eosinophils 1.6 % (0.0-10.0); %Lymphocytes 21.5 % (21.0-51.0); %Monocytes 8.7 % (0.0-10.0); %Neutrophils 67.5 % (42.0-75.0); Hemoglobin 13.2 g/dL (12.0-16.0); Mean Corpuscular HGB CONC 33.3 g/dL (32.0-36.0); Mean Corpuscular Hemoglobin 32.7 pg (27.0-31.0); Mean Corpuscular Volume 98.2 fL (78.0-98.0); Platelet Count 248 thou/uL (130-400); Red Blood Cell (RBC) Count 4.05 mill/uL (4.20-5.40); White Blood Cell (WBC) Count 9.7 thou/uL (4.8-10.8)
[2020-11-10 02:47] LABS: Phosphorus 3.3 mg/dL (2.3-4.7)
[2020-11-10 02:51] LABS: ALT (SGPT) 17 U/L (8-55); AST (SGOT) 18 U/L (5-34); Albumin 3.7 g/dL (3.5-5.0); Alkaline Phosphatase 91 U/L (40-110); Anion Gap 13 mmol/L (10-20); BUN (Urea Nitrogen) 12 mg/dL (7.0-18.7); Bilirubin, Total 0.4 mg/dL (0.2-1.2); Calc. Creatinine Clearance 0 mL/min (70-130); Calcium 9.2 mg/dL (7.8-10.44); Carbon Dioxide 22 mmol/L (22-29); Chloride 99 mmol/L (98-107); Magnesium 1.9 mg/dL (1.6-2.6); Potassium 4.3 mmol/L (3.5-5.1); Protein, Total 6.7 g/dL (6.0-8.3); Sodium 130 mmol/L (136-145)
[2020-11-10 03:05] LABS: Glucose 578 mg/dL (70-105)
[2020-11-10 03:10] LABS: Analyzer IN Cardio ER; pH (venous) 7.45 (7.32-7.43)
[2020-11-10 03:11] LABS: Actual Bicarbonate (HCO3v) 23 mEq/L (22-28); Base Excess -0.5 mEq/L (-2.0 to +3.0)
[2020-11-10 03:12] LABS: Hemoglobin (Hb) 13.9 g/dL (11.7-15.5)
[2020-11-10 03:13] LABS: Calcium, Ionized (venous) 1.08 mmol/L (1.16-1.32); Chloride (VBG) 98 mmol/L (98-106); Potassium (VBG) 4.26 mmol/L (3.70-5.30); Sodium 130.6 mmol/L (133-146)
[2020-11-10] MEDS ORDERED: Insulin Regular 300 UNITS/3 ML VIAL ONE (03:18)
[2020-11-10 11:56] LABS: Bilirubin Negative (Negative); Blood, Urine Negative (Negative); Clarity Clear (Clear); Glucose, Urine (Dipstick) Greater than 1000 mg/dL (Negative); Ketone, Urine Trace mg/dL (Negative); Leukocyte Negative Leu/uL (Negative); Nitrite Negative (Negative); Protein, Urine (Dipstick) Negative (Neg-Trace); Specific Gravity, Urine 1.026 (1.002-1.036); Urobilinogen Normal mg/dL (Less than 2)
== END 2020-11-10 05:45 | disposition home or self-care (01) ==
LOC: ERS 01:37
DX: E10.65 Type 1 diabetes mellitus with hyperglycemia (principal); I10 Essential (primary) hypertension
CPT/HCPCS: 36415; 36416; 80053; 81003; 82010; 82805; 83735; 84100; 85025; 96374; J1815

== ENCOUNTER 2020-11-26 02:26 | Emergency (ER) | payer OTHER ==
[2020-11-26 03:50] LABS: #Basophils 0.1 thou/uL (0.0-0.2); #Eosinphils 0.1 thou/uL (0.0-0.7); #Lymphocytes 2.7 thou/uL (1.20-3.40); #Monocytes 0.9 thou/uL (0.11-0.59); #Neutrophils 7.8 thou/uL (1.40-6.50); %Eosinophils 1.1 % (0.0-10.0); %Lymphocytes 23.2 % (21.0-51.0); %Monocytes 7.4 % (0.0-10.0); %Neutrophils 67.3 % (42.0-75.0); Hemoglobin 14.5 g/dL (12.0-16.0); Mean Corpuscular Hemoglobin 32.8 pg (27.0-31.0); Mean Corpuscular Volume 96.7 fL (78.0-98.0); Mean Platelet Volume 8.9 fL (7.4-10.4); Platelet Count 361 thou/uL (130-400); RBC Distribution Width 11.8 % (11.5-14.5); Red Blood Cell (RBC) Count 4.42 mill/uL (4.20-5.40); White Blood Cell (WBC) Count 11.6 thou/uL (4.8-10.8)
[2020-11-26 04:08] LABS: Acetaminophen Less than 6.0 mcg/mL (10.0-30.0); Alcohol Less than 10 mg/dL (Less than 10); Salicylate Less than 8.0 mg/dL (15.0-30.0)
[2020-11-26 04:27] LABS: BHCG - Serum Negative (NEGATIVE); Pregs Control Background? CLEAR/WHITE (CLR/WHITE); Pregs Control Bar Appear? YES (CONTROL BAR)
[2020-11-26 05:12] LABS: Albumin 4.1 g/dL (3.5-5.0)
[2020-11-26 05:14] LABS: Calcium 9.7 mg/dL (7.8-10.44); Chloride 106 mmol/L (98-107); Potassium 3.3 mmol/L (3.5-5.1); Sodium 141 mmol/L (136-145)
[2020-11-26 05:15] LABS: Glucose 68 mg/dL (70-105); Protein, Total 7.1 g/dL (6.0-8.3)
[2020-11-26 05:16] LABS: Carbon Dioxide 26 mmol/L (22-29)
[2020-11-26 05:17] LABS: Anion Gap 12 mmol/L (10-20); Bilirubin, Total 0.2 mg/dL (0.2-1.2)
[2020-11-26 05:18] LABS: Alkaline Phosphatase 92 U/L (40-110); Calc. Creatinine Clearance 0 mL/min (70-130)
[2020-11-26 05:19] LABS: BUN (Urea Nitrogen) 11 mg/dL (7.0-18.7)
[2020-11-26 05:20] LABS: AST (SGOT) 11 U/L (5-34)
[2020-11-26 05:21] LABS: ALT (SGPT) 14 U/L (8-55)
[2020-11-26 06:38] LABS: Amphetamine Not Detected (NotDetected); Barbiturates Screen Not Detected (NotDetected); Benzodiazepine Screen Not Detected (NotDetected); Cocaine Metabolite Screen Not Detected (NotDetected); Methadone Not Detected (NotDetected); Methamphetamine Not Detected (NotDetected); Opiate Screen Not Detected (NotDetected); Oxycodone Screen Not Detected (NotDetected); Phencyclidine (PCP) Not Detected (NotDetected); THC/Cannabinoid Screen Not Detected (NotDetected); Tricyclic Screen Not Detected (NotDetected)
[2020-11-26] MEDS ORDERED: Insulin Regular 300 UNITS/3 ML VIAL ONE (08:16)
== END 2020-11-26 09:28 | disposition home or self-care (01) ==
LOC: ERS 02:26
DX: R42 Dizziness and giddiness (principal); F43.20 Adjustment disorder, unspecified; E10.9 Type 1 diabetes mellitus without complications; I10 Essential (primary) hypertension; Y90.0 Blood alcohol level of less than 20 mg/100 ml
CPT/HCPCS: 36415; 36416; 70450; 80053; 80306; 80307; 84703; 85025; 93005; J1815

== ENCOUNTER 2021-11-16 19:28 | Emergency (ER) | payer OTHER ==
[2021-11-16 20:13] LABS: #Basophils 0.1 thou/uL (0.0-0.2); #Eosinphils 0.1 thou/uL (0.0-0.7); #Lymphocytes 2.2 thou/uL (1.20-3.40); #Monocytes 0.9 thou/uL (0.11-0.59); #Neutrophils 6.2 thou/uL (1.40-6.50); %Basophils 0.8 % (0.0-1.0); %Eosinophils 1.4 % (0.0-10.0); %Lymphocytes 22.9 % (21.0-51.0); %Monocytes 9.7 % (0.0-10.0); %Neutrophils 65.1 % (42.0-75.0); Hemoglobin 13.5 g/dL (12.0-16.0); Mean Corpuscular HGB CONC 33.3 g/dL (32.0-36.0); Mean Corpuscular Hemoglobin 32.1 pg (27.0-31.0); Mean Corpuscular Volume 96.3 fL (78.0-98.0); Mean Platelet Volume 8.9 fL (7.4-10.4); Platelet Count 325 thou/uL (130-400); RBC Distribution Width 12.1 % (11.5-14.5); Red Blood Cell (RBC) Count 4.19 mill/uL (4.20-5.40); White Blood Cell (WBC) Count 9.5 thou/uL (4.8-10.8)
[2021-11-16 20:30] LABS: ALT (SGPT) 137 U/L (8-55); AST (SGOT) 112 U/L (5-34); Albumin 4.2 g/dL (3.5-5.0); Alkaline Phosphatase 87 U/L (40-110); Anion Gap 13 mmol/L (10-20); BUN (Urea Nitrogen) 10 mg/dL (7.0-18.7); Bilirubin, Total 0.4 mg/dL (0.2-1.2); Calc. Creatinine Clearance 0 mL/min (70-130); Calcium 9.6 mg/dL (7.8-10.44); Carbon Dioxide 25 mmol/L (22-29); Chloride 104 mmol/L (98-107); Estimated GFR 97; Globulin 2.7 g/dL (2.4-3.5); Glucose 227 mg/dL (70-105); Potassium 4.1 mmol/L (3.5-5.1); Protein, Total 6.9 g/dL (6.0-8.3); Sodium 138 mmol/L (136-145)
[2021-11-16 22:58] LABS: Acetaminophen Less than 10.0 mcg/mL (10.0-30.0); Alcohol Less than 10 mg/dL (Less than 10); Salicylate Less than 8.0 mg/dL (15.0-30.0)
[2021-11-16 23:15] LABS: Bacteria/HPF None Seen HPF (None Seen); Bilirubin Negative (Negative); Blood, Urine 3+ (Negative); Clarity Clear (Clear); Glucose, Urine (Dipstick) Greater than 1000 mg/dL (Negative); Ketone, Urine 60 mg/dL (Negative); Leukocyte Negative Leu/uL (Negative); Nitrite Negative (Negative); Protein, Urine (Dipstick) 20 mg/dL (Neg-Trace); RBC/HPF 0-3 HPF (0-3); Specific Gravity, Urine 1.031 (1.002-1.036); WBC/HPF 0-3 HPF (0-3); pH, Urine 6.5 (5.0-9.0)
[2021-11-16 23:18] LABS: Amphetamine Not Detected (NotDetected); Barbiturates Screen Not Detected (NotDetected); Benzodiazepine Screen Detected (NotDetected); Cocaine Metabolite Screen Not Detected (NotDetected); Methadone Not Detected (NotDetected); Methamphetamine Not Detected (NotDetected); Opiate Screen Not Detected (NotDetected); Oxycodone Screen Not Detected (NotDetected); Phencyclidine (PCP) Not Detected (NotDetected); THC/Cannabinoid Screen Not Detected (NotDetected); Tricyclic Screen Not Detected (NotDetected)
[2021-11-16 23:31] LABS: BHCG - Serum Negative (NEGATIVE); Pregs Control Background? CLEAR/WHITE (CLR/WHITE); Pregs Control Bar Appear? YES (CONTROL BAR)
== END 2021-11-17 04:32 | disposition home or self-care (01) ==
LOC: ERS 19:28
DX: R41.82 Altered mental status, unspecified (principal); E11.9 Type 2 diabetes mellitus without complications; I10 Essential (primary) hypertension
CPT/HCPCS: 36415; 36416; 71045; 80053; 80306; 80307; 81003; 81015; 83605; 84443; 84484; 84703; 85025; 93005

== ENCOUNTER 2021-12-27 07:17 | Inpatient (IN) | payer OTHER ==
[2021-12-27] MEDS ORDERED: Pantoprazole 40 MG VIAL ONE (08:10)
[2021-12-27] MEDS ORDERED: Ondansetron PF 4 MG/2 ML Vial ONE (08:10)
[2021-12-27 08:19] LABS: Base Excess -15.4 mEq/L (-2.0 to +3.0); Calcium, Ionized (venous) 1.14 mmol/L (1.16-1.32); Chloride (VBG) 107 mmol/L (98-106); Hemoglobin (Hb) 15.2 g/dL (11.7-15.5); Sodium 137.3 mmol/L (133-146); pH (venous) 7.25 (7.32-7.43)
[2021-12-27 08:25] LABS: #Eosinphils 0.1 thou/uL (0.0-0.7); #Monocytes 0.9 thou/uL (0.11-0.59); #Neutrophils 14.8 thou/uL (1.40-6.50); %Basophils 0.2 % (0.0-1.0); %Eosinophils 0.4 % (0.0-10.0); %Lymphocytes 6.1 % (21.0-51.0); %Monocytes 5.2 % (0.0-10.0); %Neutrophils 88.1 % (42.0-75.0); Hemoglobin 14.3 g/dL (12.0-16.0); Mean Corpuscular HGB CONC 32.7 g/dL (32.0-36.0); Mean Corpuscular Hemoglobin 31.8 pg (27.0-31.0); Mean Corpuscular Volume 97.3 fl (78.0-98.0); Mean Platelet Volume 9.1 fL (7.4-10.4); Platelet Count 288 10x3/uL (130-400); RBC Distribution Width 11.6 % (11.5-14.5); Red Blood Cell (RBC) Count 4.49 mill/uL (4.20-5.40); White Blood Cell (WBC) Count 16.8 10x3/uL (4.8-10.8)
[2021-12-27 08:34] LABS: BHCG - Serum Negative (NEGATIVE); Pregs Control Background? CLEAR/WHITE (CLR/WHITE); Pregs Control Bar Appear? YES (CONTROL BAR)
[2021-12-27 08:45] LABS: Acetaminophen Less than 10.0 mcg/mL (10.0-30.0); Alcohol Less than 10 mg/dL (Less than 10); Lipase 16 U/L (8-78); Salicylate Less than 8.0 mg/dL (15.0-30.0)
[2021-12-27 08:52] LABS: ALT (SGPT) 18 U/L (8-55); AST (SGOT) 15 U/L (5-34); Albumin 4.3 g/dL (3.5-5.0); Alkaline Phosphatase 87 U/L (40-110); Anion Gap 23 mmol/L (10-20); BUN (Urea Nitrogen) 13 mg/dL (7.0-18.7); Calc. Creatinine Clearance 0 mL/min (70-130); Calcium 9.1 mg/dL (7.8-10.44); Carbon Dioxide 10 mmol/L (22-29); Chloride 108 mmol/L (98-107); Estimated GFR 82; Glucose 319 mg/dL (70-105); Potassium 4.2 mmol/L (3.5-5.1); Protein, Total 7.3 g/dL (6.0-8.3); Sodium 137 mmol/L (136-145)
[2021-12-27 09:03] LABS: Actual Bicarbonate (HCO3v) 10 mEq/L (22-28)
[2021-12-27] MEDS ORDERED: INSULIN REGULAR IN 0.9 % NACL 100 UNIT/100 ML BAG ONE (09:27)
[2021-12-27 10:03] LABS: Amphetamine Not Detected (NotDetected); Barbiturates Screen Not Detected (NotDetected); Benzodiazepine Screen Not Detected (NotDetected); Cocaine Metabolite Screen Not Detected (NotDetected); Methadone Not Detected (NotDetected); Methamphetamine Not Detected (NotDetected); Opiate Screen Not Detected (NotDetected); Oxycodone Screen Not Detected (NotDetected); Phencyclidine (PCP) Not Detected (NotDetected); THC/Cannabinoid Screen Not Detected (NotDetected); Tricyclic Screen Not Detected (NotDetected)
[2021-12-27 10:07] LABS: Bilirubin Negative (Negative); Blood, Urine Negative (Negative); Glucose, Urine (Dipstick) 500 mg/dL (Negative); Ketone, Urine > or equal to 80 mg/dL (Negative); Leukocyte Negative (Negative); Nitrite Negative (Negative); Protein, Urine (Dipstick) Negative (Neg-Trace); Specific Gravity, Urine 1.025 (1.005-1.030); Urobilinogen 0.2 mg/dL (Less than 2); pH, Urine 5.5 (5.0-9.0)
[2021-12-27 10:08] LABS: Clarity Clear (Clear)
[2021-12-27] MEDS ORDERED: Senokot S 8.6-50 MG TAB PO PRN (10:37)
[2021-12-27] MEDS ORDERED: Calcium Carbonate 500 MG ChewTAB PO PRN (10:37)
[2021-12-27] MEDS ORDERED: Acetaminophen 325 MG TAB PO PRN (10:37)
[2021-12-27] MEDS ORDERED: Ondansetron ODT 4 MG TAB PO PRN (10:37)
[2021-12-27] MEDS ORDERED: Ondansetron PF 4 MG/2 ML Vial IVP PRN (10:37)
[2021-12-27] MEDS ORDERED: NS 0.9% w/ 20 MEQ KCL 1,000 ML ONE (10:40)
[2021-12-27] MEDS ORDERED: Sodium Chloride 0.9% 1,000 ML IV PRN ×4 (10:42)
[2021-12-27] MEDS ORDERED: Dextrose 5 %-0.45 % NaCl 1,000 ML IV PRN (10:42)
[2021-12-27] MEDS ORDERED: NS 0.9% w/ 20 MEQ KCL 1,000 ML IV PRN ×2 (10:42)
[2021-12-27] MEDS ORDERED: D5 1/2 NS w/20 mEq KCL 1,000 ML IV PRN (10:42)
[2021-12-27] MEDS ORDERED: Electrolyte Replacement Protocol 1 EACH IVPB ONE (10:42)
[2021-12-27] MEDS ORDERED: HUMULIN R 100 UNITS in Sodium Chloride 0.9% 100 ML IVPB SCH (10:45)
[2021-12-27] MEDS ORDERED: Electrolyte Replacement Protocol FS PRN (11:00)
[2021-12-27] MEDS ORDERED: FLU VACC QS2022-23(6MOS UP)/PF 60 MCG/0.5 ML SYRINGE IM ONE (11:15)
[2021-12-27 11:22] LABS: Anion Gap 14 mmol/L (10-20); BUN (Urea Nitrogen) 11 mg/dL (7.0-18.7); Calc. Creatinine Clearance 0 mL/min (70-130); Calcium 8.5 mg/dL (7.8-10.44); Carbon Dioxide 14 mmol/L (22-29); Chloride 114 mmol/L (98-107); Estimated GFR 98; Glucose 118 mg/dL (70-105); Potassium 4.2 mmol/L (3.5-5.1); Sodium 138 mmol/L (136-145)
[2021-12-27 12:26] LABS: Anion Gap 16 mmol/L (10-20); BUN (Urea Nitrogen) 9 mg/dL (7.0-18.7); Calc. Creatinine Clearance 0 mL/min (70-130); Calcium 8.7 mg/dL (7.8-10.44); Carbon Dioxide 16 mmol/L (22-29); Chloride 115 mmol/L (98-107); Estimated GFR 95; Glucose 79 mg/dL (70-105); Potassium 4.5 mmol/L (3.5-5.1); Sodium 142 mmol/L (136-145)
[2021-12-27] MEDS ORDERED: Dextrose 50% Abboject 50 ML SYRINGE SLOW IVP PRN (12:54)
[2021-12-27] MEDS ORDERED: HumaLOG 300 UNITS/3 ML VIAL SC PRN (12:54)
[2021-12-27] MEDS ORDERED: Dextrose 5% in Water 1,000 ML IV PRN (12:54)
[2021-12-27] MEDS ORDERED: Sodium Bicarb 50 MEQ/50 ML VIAL IVP SCH ×2 (13:00→19:00)
[2021-12-27] MEDS ORDERED: Insulin Glargine 30 UNITS/0.3 ML VIAL SC SCH ×3 (13:00→21:00)
[2021-12-27 13:29] VITALS: BMI 31.4
[2021-12-27] MEDS: Lactated Ringer's 1,000 ML IV SCH ×2 (14:18→20:28)
[2021-12-27 16:55] LABS: Anion Gap 16 mmol/L (10-20); BUN (Urea Nitrogen) 11 mg/dL (7.0-18.7); Calc. Creatinine Clearance 108 mL/min (70-130); Calcium 8.1 mg/dL (7.8-10.44); Carbon Dioxide 15 mmol/L (22-29); Chloride 109 mmol/L (98-107); Estimated GFR 88; Glucose 350 mg/dL (70-105); Potassium 4.5 mmol/L (3.5-5.1); Sodium 135 mmol/L (136-145)
[2021-12-27] MEDS: risperiDONE 1 MG TAB PO SCH (21:10)
[2021-12-27] MEDS: Famotidine/PF 20 mg/2ml Vial SLOW IVP SCH (21:11)
[2021-12-27] MEDS: HumaLOG 300 UNITS/3 ML VIAL SC PRN (21:16)
[2021-12-27 21:27] LABS: Anion Gap 12 mmol/L (10-20); BUN (Urea Nitrogen) 12 mg/dL (7.0-18.7); Calc. Creatinine Clearance 116 mL/min (70-130); Calcium 8.3 mg/dL (7.8-10.44); Carbon Dioxide 21 mmol/L (22-29); Chloride 106 mmol/L (98-107); Estimated GFR 95; Glucose 263 mg/dL (70-105); Potassium 3.9 mmol/L (3.5-5.1); Sodium 135 mmol/L (136-145)
[2021-12-27] MEDS ORDERED: Metoprolol Tartrate 5 MG/5 ML VIAL IVP SCH (22:30)
[2021-12-28] MEDS: Lactated Ringer's 1,000 ML IV SCH ×2 (02:53→09:20)
[2021-12-28 04:09] LABS: Hemoglobin A1c 7.7 % (4.0-6.0)
[2021-12-28 04:10] LABS: #Basophils 0.1 thou/uL (0.0-0.2); #Eosinphils 0.2 thou/uL (0.0-0.7); #Monocytes 0.8 thou/uL (0.11-0.59); #Neutrophils 5.1 thou/uL (1.40-6.50); %Basophils 0.7 % (0.0-1.0); %Eosinophils 1.8 % (0.0-10.0); %Lymphocytes 32.5 % (21.0-51.0); %Monocytes 8.8 % (0.0-10.0); %Neutrophils 56.2 % (42.0-75.0); Hemoglobin 11.5 g/dL (12.0-16.0); Mean Corpuscular HGB CONC 33.4 g/dL (32.0-36.0); Mean Corpuscular Volume 95.7 fl (78.0-98.0); Mean Platelet Volume 8.8 fL (7.4-10.4); Platelet Count 236 10x3/uL (130-400); RBC Distribution Width 11.6 % (11.5-14.5); Red Blood Cell (RBC) Count 3.58 mill/uL (4.20-5.40); White Blood Cell (WBC) Count 9.2 10x3/uL (4.8-10.8)
[2021-12-28 04:23] LABS: Magnesium 1.7 mg/dL (1.6-2.6)
[2021-12-28 04:39] LABS: ALT (SGPT) 12 U/L (8-55); AST (SGOT) 9 U/L (5-34); Albumin 3.1 g/dL (3.5-5.0); Alkaline Phosphatase 60 U/L (40-110); Anion Gap 11 mmol/L (10-20); BUN (Urea Nitrogen) 8 mg/dL (7.0-18.7); Bilirubin, Total 0.7 mg/dL (0.2-1.2); Calc. Creatinine Clearance 145 mL/min (70-130); Carbon Dioxide 21 mmol/L (22-29); Cardiac Risk 3.9 (Less than 4.5); Chloride 108 mmol/L (98-107); Cholesterol 154 mg/dl (< 200 Desired); Estimated GFR 120; Globulin 2.2 g/dL (2.4-3.5); Glucose 153 mg/dL (70-105); HDL Cholesterol 39 mg/dL (>60 Neg Risk); LDL Cholesterol, Calculated 100 mg/dL; Potassium 3.8 mmol/L (3.5-5.1); Protein, Total 5.3 g/dL (6.0-8.3); Sodium 136 mmol/L (136-145); Triglycerides 77 mg/dL (Less than 150)
[2021-12-28] MEDS ORDERED: Insulin Glargine 30 UNITS/0.3 ML VIAL SC SCH ×2 (09:00→10:45)
[2021-12-28] MEDS ORDERED: LURASIDONE HCL 40 MG PO SCH (09:00)
[2021-12-28] MEDS: Bupropion 150 MG XL TAB PO SCH (09:19)
[2021-12-28] MEDS: Enoxaparin Sodium 40 MG/0.4 ML SYRINGE SC SCH (09:19)
[2021-12-28] MEDS: Famotidine/PF 20 mg/2ml Vial SLOW IVP SCH ×2 (09:19→20:34)
[2021-12-28] MEDS: FLUoxetine HCl 10 MG CAP PO SCH (09:19)
[2021-12-28] MEDS: Simvastatin 10 MG TAB PO SCH (09:20)
[2021-12-28] MEDS: HumaLOG 300 UNITS/3 ML VIAL SC PRN ×2 (17:13→20:42)
[2021-12-28] MEDS: risperiDONE 1 MG TAB PO SCH (20:33)
[2021-12-28] MEDS: Insulin Glargine 30 UNITS/0.3 ML VIAL SC SCH (20:34)
[2021-12-29 06:53] LABS: #Basophils 0.1 thou/uL (0.0-0.2); #Eosinphils 0.1 thou/uL (0.0-0.7); #Lymphocytes 1.6 thou/uL (1.20-3.40); #Monocytes 0.6 thou/uL (0.11-0.59); #Neutrophils 3.9 thou/uL (1.40-6.50); %Eosinophils 2.1 % (0.0-10.0); %Lymphocytes 25.6 % (21.0-51.0); %Monocytes 9.5 % (0.0-10.0); %Neutrophils 61.8 % (42.0-75.0); Hemoglobin 12.6 g/dL (12.0-16.0); Mean Corpuscular HGB CONC 34.8 g/dL (32.0-36.0); Mean Corpuscular Hemoglobin 33.8 pg (27.0-31.0); Mean Corpuscular Volume 97.2 fl (78.0-98.0); Mean Platelet Volume 8.6 fL (7.4-10.4); Platelet Count 227 10x3/uL (130-400); RBC Distribution Width 11.6 % (11.5-14.5); Red Blood Cell (RBC) Count 3.73 mill/uL (4.20-5.40); White Blood Cell (WBC) Count 6.4 10x3/uL (4.8-10.8)
[2021-12-29 07:19] LABS: Anion Gap 11 mmol/L (10-20); BUN (Urea Nitrogen) 4 mg/dL (7.0-18.7); Calc. Creatinine Clearance 173 mL/min (70-130); Calcium 8.7 mg/dL (7.8-10.44); Carbon Dioxide 24 mmol/L (22-29); Chloride 106 mmol/L (98-107); Estimated GFR 124; Glucose 62 mg/dL (70-105); Magnesium 1.6 mg/dL (1.6-2.6); Potassium 3.2 mmol/L (3.5-5.1); Sodium 138 mmol/L (136-145)
[2021-12-29] MEDS: FLUoxetine HCl 10 MG CAP PO SCH (08:14)
[2021-12-29] MEDS: Bupropion 150 MG XL TAB PO SCH (08:14)
[2021-12-29] MEDS: Enoxaparin Sodium 40 MG/0.4 ML SYRINGE SC SCH (08:15)
[2021-12-29] MEDS: Famotidine/PF 20 mg/2ml Vial SLOW IVP SCH (08:15)
[2021-12-29] MEDS: Simvastatin 10 MG TAB PO SCH (08:15)
[2021-12-29 08:29] VITALS: BP 123/84; TEMP 97.8
[2021-12-29] MEDS: Insulin Glargine 30 UNITS/0.3 ML VIAL SC SCH (09:21)
[2021-12-29] MEDS ORDERED: Potassium Chloride 20 MEQ TAB PO SCH (10:15)
[2021-12-29] MEDS: HumaLOG 300 UNITS/3 ML VIAL SC PRN (12:53)
== END 2021-12-29 16:55 | disposition home or self-care (01) | DRG 637 ==
LOC: ERS 07:17 → ERHOLD 09:54 → IMCU/EMU 12:34 → T4-B 12-28 11:05
PROVIDERS: ADMIT Internal Medicine; ATTEND Internal Medicine
DX: E10.10 Type 1 diabetes mellitus with ketoacidosis without coma (principal); G93.41 Metabolic encephalopathy; E87.1 Hypo-osmolality and hyponatremia; I10 Essential (primary) hypertension; F32.A Depression, unspecified; Z79.899 Other long term (current) drug therapy; Z79.4 Long term (current) use of insulin
CPT/HCPCS: 36415; 36416; 80048; 80053; 80061; 80306; 80307; 81003; 82010; 82805; 83036; 83690; 83735; 84478; 84703; 85025; 87086; 90471; 90686; 96361; 96365; 96366; 96375; C9113; G0008; J1650; J1815; J2405; J3480; J7120; S0028

== ENCOUNTER 2022-03-06 07:35 | Inpatient (IN) | payer OTHER ==
[2022-03-06] MEDS ORDERED: Ondansetron PF 4 MG/2 ML Vial ONE (08:05)
[2022-03-06 08:21] LABS: #Lymphocytes 1.4 thou/uL (1.20-3.40); #Monocytes 0.4 thou/uL (0.11-0.59); #Neutrophils 13.2 thou/uL (1.40-6.50); %Basophils 0.3 % (0.0-1.0); %Eosinophils 0.3 % (0.0-10.0); %Lymphocytes 9.4 % (21.0-51.0); %Monocytes 2.6 % (0.0-10.0); %Neutrophils 87.4 % (42.0-75.0); Mean Corpuscular HGB CONC 32.2 g/dL (32.0-36.0); Mean Corpuscular Hemoglobin 30.7 pg (27.0-31.0); Mean Corpuscular Volume 95.3 fl (78.0-98.0); Mean Platelet Volume 9.7 fL (7.4-10.4); Platelet Count 297 10x3/uL (130-400); RBC Distribution Width 12.1 % (11.5-14.5); Red Blood Cell (RBC) Count 4.57 mill/uL (4.20-5.40); White Blood Cell (WBC) Count 15.1 10x3/uL (4.8-10.8)
[2022-03-06 08:36] LABS: BHCG - Serum Negative (NEGATIVE); Pregs Control Background? CLEAR/WHITE (CLR/WHITE); Pregs Control Bar Appear? YES (CONTROL BAR)
[2022-03-06 08:39] LABS: ALT (SGPT) 23 U/L (8-55); AST (SGOT) 14 U/L (5-34); Albumin 4.5 g/dL (3.5-5.0); Alkaline Phosphatase 106 U/L (40-110); Anion Gap 27 mmol/L (10-20); BUN (Urea Nitrogen) 22 mg/dL (7.0-18.7); Bilirubin, Total 0.8 mg/dL (0.2-1.2); Calc. Creatinine Clearance 0 mL/min (70-130); Calcium 10.1 mg/dL (7.8-10.44); Carbon Dioxide 12 mmol/L (22-29); Chloride 101 mmol/L (98-107); Estimated GFR 69; Globulin 3.5 g/dL (2.4-3.5); Lipase 14 U/L (8-78); Magnesium 2.1 mg/dL (1.6-2.6); Potassium 4.5 mmol/L (3.5-5.1); Sodium 135 mmol/L (136-145)
[2022-03-06 08:45] LABS: Glucose 610 mg/dL (70-105)
[2022-03-06] MEDS ORDERED: INSULIN REGULAR IN 0.9 % NACL 100 UNIT/100 ML BAG ONE (09:02)
[2022-03-06] MEDS ORDERED: NS 0.9% w/ 20 MEQ KCL 1,000 ML ONE (09:03)
[2022-03-06 09:15] LABS: Base Excess -15.1 mEq/L (-2.0 to +3.0); Calcium, Ionized (venous) 1.18 mmol/L (1.16-1.32); Chloride (VBG) 104 mmol/L (98-106); Hemoglobin (Hb) 15.1 g/dL (11.7-15.5); Potassium (VBG) 4.55 mmol/L (3.70-5.30); Sodium 138.3 mmol/L (133-146)
[2022-03-06 09:16] LABS: pH (venous) 7.17 (7.32-7.43)
[2022-03-06 09:17] LABS: Actual Bicarbonate (HCO3v) 12 mEq/L (22-28)
[2022-03-06 10:05] LABS: Bilirubin Negative (Negative); Blood, Urine Negative (Negative); Clarity Clear (Clear); Glucose, Urine (Dipstick) Greater than 1000 mg/dL (Negative); Ketone, Urine Greater than 150 mg/dL (Negative); Leukocyte Negative Leu/uL (Negative); Nitrite Negative (Negative); Protein, Urine (Dipstick) Negative (Neg-Trace); Specific Gravity, Urine 1.031 (1.002-1.036); Urobilinogen Normal mg/dL (Less than 2)
[2022-03-06] MEDS ORDERED: HYDROcodone/Acetaminophen 5/325 mg Tablet PO PRN (10:13)
[2022-03-06] MEDS ORDERED: Senokot S 8.6-50 MG TAB PO PRN (10:13)
[2022-03-06] MEDS ORDERED: Ondansetron PF 4 MG/2 ML Vial IVP PRN (10:13)
[2022-03-06] MEDS ORDERED: Sodium Chloride 0.9% 1,000 ML IV PRN ×4 (10:13)
[2022-03-06] MEDS ORDERED: Electrolyte Replacement Protocol 1 EACH IVPB SCH (10:13)
[2022-03-06] MEDS ORDERED: Dextrose 5 %-0.45 % NaCl 1,000 ML IV PRN (10:13)
[2022-03-06] MEDS ORDERED: Guaifenesin DM 100-10/5 ML UDCUP PO PRN (10:13)
[2022-03-06] MEDS ORDERED: NS 0.9% w/ 20 MEQ KCL 1,000 ML IV PRN ×2 (10:13)
[2022-03-06] MEDS ORDERED: HUMULIN R 100 UNITS in Sodium Chloride 0.9% 100 ML IVPB SCH (10:15)
[2022-03-06 11:33] LABS: Anion Gap 28 mmol/L (10-20); BUN (Urea Nitrogen) 22 mg/dL (7.0-18.7); Calc. Creatinine Clearance 0 mL/min (70-130); Calcium 10.4 mg/dL (7.8-10.44); Carbon Dioxide 12 mmol/L (22-29); Chloride 105 mmol/L (98-107); Estimated GFR 67; Glucose 391 mg/dL (70-105); Potassium 4.2 mmol/L (3.5-5.1); Sodium 141 mmol/L (136-145)
[2022-03-06] MEDS ORDERED: D5 1/2 NS w/20 mEq KCL 1,000 ML ONE (11:40)
[2022-03-06] MEDS: D5 1/2 NS w/20 mEq KCL 1,000 ML IV PRN ×2 (16:05→20:34)
[2022-03-06 16:35] LABS: Carbon Dioxide 15 mmol/L (22-29); Chloride 111 mmol/L (98-107); Potassium 4.3 mmol/L (3.5-5.1); Sodium 138 mmol/L (136-145)
[2022-03-06 16:36] LABS: Anion Gap 16 mmol/L (10-20); BUN (Urea Nitrogen) 20 mg/dL (7.0-18.7); Calc. Creatinine Clearance 108 mL/min (70-130); Estimated GFR 89; Glucose 292 mg/dL (70-105)
[2022-03-06 16:50] LABS: Calcium 8.7 mg/dL (7.8-10.44)
[2022-03-06 18:55] LABS: Anion Gap 11 mmol/L (10-20); BUN (Urea Nitrogen) 17 mg/dL (7.0-18.7); Calc. Creatinine Clearance 119 mL/min (70-130); Calcium 8.9 mg/dL (7.8-10.44); Carbon Dioxide 19 mmol/L (22-29); Chloride 111 mmol/L (98-107); Estimated GFR 99; Glucose 191 mg/dL (70-105); Potassium 4.2 mmol/L (3.5-5.1); Sodium 137 mmol/L (136-145)
[2022-03-06] MEDS: Famotidine 20 MG TAB PO SCH (20:39)
[2022-03-06] MEDS ORDERED: Pantoprazole 40 MG VIAL IVP SCH (21:00)
[2022-03-07] MEDS: D5 1/2 NS w/20 mEq KCL 1,000 ML IV PRN ×2 (00:42→04:24)
[2022-03-07 04:04] LABS: #Basophils 0.1 thou/uL (0.0-0.2); #Eosinphils 0.1 thou/uL (0.0-0.7); #Monocytes 1.2 thou/uL (0.11-0.59); #Neutrophils 10.3 thou/uL (1.40-6.50); %Basophils 0.8 % (0.0-1.0); %Lymphocytes 20.4 % (21.0-51.0); %Monocytes 7.9 % (0.0-10.0); Hemoglobin 13.3 g/dL (12.0-16.0); Mean Corpuscular Hemoglobin 30.4 pg (27.0-31.0); Mean Corpuscular Volume 95.1 fl (78.0-98.0); Mean Platelet Volume 8.8 fL (7.4-10.4); Platelet Count 275 10x3/uL (130-400); RBC Distribution Width 12.3 % (11.5-14.5); Red Blood Cell (RBC) Count 4.36 mill/uL (4.20-5.40); White Blood Cell (WBC) Count 14.8 10x3/uL (4.8-10.8)
[2022-03-07] MEDS ORDERED: HumaLOG 300 UNITS/3 ML VIAL SC PRN (08:19)
[2022-03-07] MEDS ORDERED: Dextrose 5% in Water 1,000 ML IV PRN (08:19)
[2022-03-07] MEDS ORDERED: Dextrose 50% Abboject 50 ML SYRINGE SLOW IVP PRN (08:19)
[2022-03-07] MEDS ORDERED: LURASIDONE 40 MG PO SCH (09:00)
[2022-03-07] MEDS ORDERED: Lurasidone 40 MG TAB PO SCH (09:00)
[2022-03-07] MEDS ORDERED: Insulin Glargine 30 UNITS/0.3 ML VIAL SC SCH ×2 (09:00→14:00)
[2022-03-07] MEDS: Famotidine 20 MG TAB PO SCH ×2 (11:30→20:38)
[2022-03-07] MEDS: FLUoxetine HCl 10 MG CAP PO SCH (11:31)
[2022-03-07] MEDS: Multivit, Therapeutic 1 TAB PO SCH (11:31)
[2022-03-07] MEDS: Bupropion 150 MG XL TAB PO SCH (11:31)
[2022-03-07 11:50] VITALS: BMI 31.5
[2022-03-07] MEDS: HumaLOG 300 UNITS/3 ML VIAL SC PRN ×2 (11:51→13:39)
[2022-03-07] MEDS: Simvastatin 10 MG TAB PO SCH (13:40)
[2022-03-07] MEDS: Lurasidone 20 MG TABLET PO SCH (13:40)
[2022-03-07 14:14] LABS: ALT (SGPT) 17 U/L (8-55); AST (SGOT) 14 U/L (5-34); Albumin 3.5 g/dL (3.5-5.0); Alkaline Phosphatase 78 U/L (40-110); Anion Gap 17 mmol/L (10-20); BUN (Urea Nitrogen) 11 mg/dL (7.0-18.7); Calc. Creatinine Clearance 109 mL/min (70-130); Calcium 8.6 mg/dL (7.8-10.44); Carbon Dioxide 15 mmol/L (22-29); Chloride 105 mmol/L (98-107); Estimated GFR 89; Globulin 2.8 g/dL (2.4-3.5); Potassium 4.2 mmol/L (3.5-5.1); Protein, Total 6.3 g/dL (6.0-8.3); Sodium 133 mmol/L (136-145)
[2022-03-07 14:23] LABS: Glucose 404 mg/dL (70-105)
[2022-03-08 04:35] LABS: Anion Gap 14 mmol/L (10-20); BUN (Urea Nitrogen) 7 mg/dL (7.0-18.7); Calc. Creatinine Clearance 174 mL/min (70-130); Calcium 8.7 mg/dL (7.8-10.44); Carbon Dioxide 24 mmol/L (22-29); Chloride 104 mmol/L (98-107); Estimated GFR 125; Glucose 106 mg/dL (70-105); Potassium 3.5 mmol/L (3.5-5.1); Sodium 138 mmol/L (136-145)
[2022-03-08] MEDS ORDERED: Insulin Glargine 30 UNITS/0.3 ML VIAL SC SCH (09:00)
[2022-03-08] MEDS: Bupropion 150 MG XL TAB PO SCH (10:16)
[2022-03-08] MEDS: Famotidine 20 MG TAB PO SCH (10:16)
[2022-03-08] MEDS: Multivit, Therapeutic 1 TAB PO SCH (10:17)
[2022-03-08] MEDS: FLUoxetine HCl 10 MG CAP PO SCH (10:17)
[2022-03-08] MEDS: Simvastatin 10 MG TAB PO SCH (10:32)
[2022-03-08] MEDS: Lurasidone 20 MG TABLET PO SCH (10:32)
[2022-03-08] MEDS: HumaLOG 300 UNITS/3 ML VIAL SC PRN (14:54)
[2022-03-08 16:12] VITALS: TEMP 98.7
== END 2022-03-08 17:55 | disposition home or self-care (01) | DRG 639 ==
LOC: ERS 07:35 → IMCU/EMU 13:04
PROVIDERS: ADMIT Internal Medicine; ATTEND Internal Medicine
DX: E10.10 Type 1 diabetes mellitus with ketoacidosis without coma (principal); E86.0 Dehydration; I10 Essential (primary) hypertension; E78.5 Hyperlipidemia, unspecified; F31.9 Bipolar disorder, unspecified; E66.9 Obesity, unspecified; Z68.31 Body mass index [BMI] 31.0-31.9, adult; Z79.899 Other long term (current) drug therapy; Z79.4 Long term (current) use of insulin; Z82.49 Family history of ischemic heart disease and other diseases of the circulatory system
CPT/HCPCS: 36415; 36416; 71045; 80048; 80053; 81003; 82010; 82805; 83690; 83735; 84484; 84703; 85025; 93005; C9113; J1650; J1815; J2405; J3480; J3490; J7042

== ENCOUNTER 2022-03-11 16:34 | Emergency (ER) | payer OTHER | END 2022-03-11 18:59 | disposition home or self-care (01) | LOC: ERS 16:34 | DX: R45.1 Restlessness and agitation (principal); E10.9 Type 1 diabetes mellitus without complications; I10 Essential (primary) hypertension; Z79.4 Long term (current) use of insulin | CPT/HCPCS: 93005 ==

== ENCOUNTER 2023-02-05 23:05 | Emergency (ER) | payer OTHER ==
[2023-02-06 00:43] LABS: Bacteria/HPF None Seen HPF (None Seen); Bilirubin Negative (Negative); Blood, Urine Negative (Negative); CAUTI Indications for Culture Pregnancy; Clarity Clear (Clear); Glucose, Urine (Dipstick) Greater than 1000 mg/dL (Negative); Ketone, Urine 80 mg/dL (Negative); Leukocyte Negative Leu/uL (Negative); Nitrite Negative (Negative); Protein, Urine (Dipstick) 20 mg/dL (Neg-Trace); RBC/HPF 0-3 HPF (0-3); Specific Gravity, Urine 1.047 (1.002-1.036); Squamous Epithelial 0-3 HPF (0-3); Urobilinogen Normal mg/dL (Less than 2); WBC/HPF 0-3 HPF (0-3)
[2023-02-06 00:45] LABS: Pregnancy Test - Urine (BHCG) Negative (Negative); Pregu Control Background? CLEAR/WHITE (CLR/WHITE); Pregu Control Bar Appear? YES (CONTROL BAR); Specific Gravity 1.047 (1.002-1.036); Urine Culture Reflex Yes Yes
[2023-02-06 00:50] LABS: Amphetamine Not Detected (NotDetected); Barbiturates Screen Not Detected (NotDetected); Benzodiazepine Screen Not Detected (NotDetected); Cocaine Metabolite Screen Not Detected (NotDetected); Methadone Not Detected (NotDetected); Methamphetamine Not Detected (NotDetected); Opiate Screen Not Detected (NotDetected); Oxycodone Screen Not Detected (NotDetected); Phencyclidine (PCP) Not Detected (NotDetected); THC/Cannabinoid Screen Not Detected (NotDetected); Tricyclic Screen Not Detected (NotDetected)
[2023-02-06 00:53] LABS: Hematocrit 44.9 % (36.0-47.0); Hemoglobin 13.8 g/dL (12.0-16.0); Manual Diff?? YES; Mean Corpuscular HGB CONC 30.7 g/dL (32.0-36.0); Mean Corpuscular Hemoglobin 29.1 pg (27.0-31.0); Mean Corpuscular Volume 94.5 fl (78.0-98.0); Mean Platelet Volume 12.4 fL (7.4-10.4); Platelet Count 209 10x3/uL (130-400); RBC Distribution Width 14.6 % (11.5-14.5); Red Blood Cell (RBC) Count 4.75 mill/uL (4.20-5.40); White Blood Cell (WBC) Count 10.1 10x3/uL (4.8-10.8)
[2023-02-06 00:56] LABS: Delete Auto Diff?? YES
[2023-02-06 01:15] LABS: Eosinophils 1 % (0-10); Lymphocytes 14 % (21-51); Monocytes 5 % (0-10); Neutrophil 80 % (42-75)
[2023-02-06 01:17] LABS: Anisocytosis SLIGHT = 6-15 cells (100X) (0-5/hpf); Polychromasia SLIGHT = 2-3 cells (100X) (0-2/hpf)
[2023-02-06 01:17] LABS: Acetaminophen Less than 10 mcg/mL (10.0-30.0); Alcohol Less than 10.0 mg/dL (Less than 10); Salicylate Less than 8.0 mg/dL (15.0-30.0)
[2023-02-06 01:18] LABS: Platelet Adequacy Comment Platelets Normal; Stomatocytes SLIGHT = 2-5 cells (100X) (0-1/hpf)
[2023-02-06 01:21] LABS: ALT (SGPT) 14 U/L (8-55); AST (SGOT) 17 U/L (5-34); Albumin 4.1 g/dL (3.5-5.0); Alkaline Phosphatase 94 U/L (40-110); Anion Gap 19 mmol/L (10-20); BUN (Urea Nitrogen) 12 mg/dL (7.0-18.7); Bilirubin, Total 0.5 mg/dL (0.2-1.2); Calc. Creatinine Clearance 0 mL/min (70-130); Calcium 9.2 mg/dL (7.8-10.44); Carbon Dioxide 17 mmol/L (22-29); Chloride 102 mmol/L (98-107); Estimated GFR 81; Globulin 3.8 g/dL (2.4-3.5); Glucose 319 mg/dL (70-105); Potassium 4.2 mmol/L (3.5-5.1); Protein, Total 7.9 g/dL (6.0-8.3); Sodium 134 mmol/L (136-145)
[2023-02-06] MEDS ORDERED: Insulin Regular 300 UNITS/3 ML VIAL ONE ×2 (02:37→09:23)
[2023-02-06] MEDS ORDERED: FLUoxetine HCl 10 MG CAP PO SCH (09:30)
[2023-02-06] MEDS ORDERED: buPROPion HCl 100 MG TAB PO SCH (09:30)
[2023-02-06] MEDS ORDERED: Lurasidone 20 MG TABLET PO SCH (09:30)
== END 2023-02-06 09:45 ==
LOC: ERS 23:05
DX: R45.851 Suicidal ideations (principal); E11.65 Type 2 diabetes mellitus with hyperglycemia; I10 Essential (primary) hypertension; Z79.4 Long term (current) use of insulin
CPT/HCPCS: 36415; 36416; 80053; 80306; 80307; 81001; 81025; 84443; 85025; 87086; 93005; J1815

== ENCOUNTER 2023-02-26 13:47 | Inpatient (IN) | payer OTHER ==
[2023-02-26 14:36] LABS: #Basophils 0.1 thou/uL (0.0-0.2); #Monocytes 0.5 thou/uL (0.11-0.59); #Neutrophils 15.4 thou/uL (1.40-6.50); %Basophils 0.6 % (0.0-1.0); %Eosinophils 0.1 % (0.0-10.0); %Neutrophils 87.3 % (42.0-75.0); Hematocrit 44.3 % (36.0-47.0); Hemoglobin 13.7 g/dL (12.0-16.0); Mean Corpuscular HGB CONC 30.9 g/dL (32.0-36.0); Mean Corpuscular Hemoglobin 30.1 pg (27.0-31.0); Mean Corpuscular Volume 97.4 fl (78.0-98.0); Mean Platelet Volume 12.5 fL (7.4-10.4); Platelet Count 353 10x3/uL (130-400); RBC Distribution Width 14.9 % (11.5-14.5); Red Blood Cell (RBC) Count 4.55 mill/uL (4.20-5.40); White Blood Cell (WBC) Count 17.6 10x3/uL (4.8-10.8)
[2023-02-26 14:46] LABS: BHCG - Serum Negative (NEGATIVE); Pregs Control Background? CLEAR/WHITE (CLR/WHITE); Pregs Control Bar Appear? YES (CONTROL BAR)
[2023-02-26 14:55] LABS: Lipase 13 U/L (8-78); Phosphorus 5.2 mg/dL (2.3-4.7)
[2023-02-26 14:55] LABS: Base Excess -16.7 mEq/L (-2.0 to +3.0); Calcium, Ionized (venous) 1.17 mmol/L (1.16-1.32); Chloride (VBG) 94 mmol/L (98-106); Hematocrit-VBG 43 % (36.0-47.0); Hemoglobin (Hb) 14.5 g/dL (11.7-15.5); Potassium (VBG) 5.81 mmol/L (3.70-5.30); Sodium 133 mmol/L (133-146)
[2023-02-26 15:01] LABS: ALT (SGPT) 33 U/L (8-55); AST (SGOT) 25 U/L (5-34); Albumin 3.9 g/dL (3.5-5.0); Alkaline Phosphatase 114 U/L (40-110); Anion Gap 33 mmol/L (10-20); BUN (Urea Nitrogen) 18 mg/dL (7.0-18.7); Bilirubin, Total 0.7 mg/dL (0.2-1.2); Calc. Creatinine Clearance 0 mL/min (70-130); Calcium 9.3 mg/dL (7.8-10.44); Chloride 94 mmol/L (98-107); Estimated GFR 50; Globulin 3.2 g/dL (2.4-3.5); Magnesium 1.9 mg/dL (1.6-2.6); Potassium 5.3 mmol/L (3.5-5.1); Protein, Total 7.1 g/dL (6.0-8.3); Sodium 131 mmol/L (136-145)
[2023-02-26 15:05] LABS: Troponin I Less than 0.010 ng/mL (< 0.028)
[2023-02-26 15:09] LABS: Carbon Dioxide 9 mmol/L (22-29)
[2023-02-26 15:13] LABS: Glucose 792 mg/dL (70-105)
[2023-02-26] MEDS ORDERED: INSULIN REGULAR IN 0.9 % NACL 100 UNITS/100 ML BAG ONE (15:31)
[2023-02-26] MEDS ORDERED: Dextrose 5 %-0.45 % NaCl 1,000 ML IV PRN (16:22)
[2023-02-26] MEDS ORDERED: HYDROcodone/Acetaminophen 5/325 mg Tablet PO PRN (16:22)
[2023-02-26] MEDS ORDERED: Dextrose 50% Abboject 50 ML SYRINGE SLOW IVP PRN (16:22)
[2023-02-26] MEDS ORDERED: Ondansetron PF 4 MG/2 ML Vial IVP PRN (16:22)
[2023-02-26] MEDS ORDERED: Acetaminophen 325 MG TAB PO PRN (16:22)
[2023-02-26] MEDS ORDERED: Sodium Chloride 0.9% 1,000 ML IV PRN ×4 (16:22)
[2023-02-26] MEDS ORDERED: NS 0.9% w/ 20 MEQ KCL 1,000 ML IV PRN ×2 (16:22)
[2023-02-26] MEDS ORDERED: Electrolyte Replacement Protocol 1 EACH IVPB SCH (16:22)
[2023-02-26] MEDS ORDERED: HUMULIN R 100 UNITS in Sodium Chloride 0.9% 100 ML IVPB SCH (16:30)
[2023-02-26] MEDS ORDERED: Enoxaparin 40 MG (0.4 mL) SYRINGE SC SCH (16:30)
[2023-02-26 17:43] VITALS: BMI 31.2
[2023-02-26 17:46] LABS: BUN (Urea Nitrogen) 19 mg/dL (7.0-18.7); Calc. Creatinine Clearance 70 mL/min (70-130); Chloride 103 mmol/L (98-107); Estimated GFR 53; Potassium 5.3 mmol/L (3.5-5.1); Sodium 136 mmol/L (136-145)
[2023-02-26 17:55] LABS: Carbon Dioxide Less than 8 mmol/L (22-29); Glucose 676 mg/dL (70-105)
[2023-02-26 18:24] LABS: Critical Call Chemistry NUR.MAT @1824; Glucose 648 mg/dL (70-105)
[2023-02-26] MEDS ORDERED: Magnesium 2 GM/50 ML(in water) 2 GM in Premix 1 BAG IVPB SCH (20:15)
[2023-02-26 20:17] LABS: Glucose 321 mg/dL (70-105)
[2023-02-26 20:54] LABS: Chloride 112 mmol/L (98-107); Potassium 4.1 mmol/L (3.5-5.1); Sodium 137 mmol/L (136-145)
[2023-02-26 20:55] LABS: Calcium 7.9 mg/dL (7.8-10.44); Glucose 317 mg/dL (70-105)
[2023-02-26 20:59] LABS: BUN (Urea Nitrogen) 14 mg/dL (7.0-18.7); Calc. Creatinine Clearance 94 mL/min (70-130); Estimated GFR 75
[2023-02-26] MEDS ORDERED: Famotidine 20 MG TAB PO SCH (21:00)
[2023-02-26 21:03] LABS: Carbon Dioxide Less than 8 mmol/L (22-29)
[2023-02-26] MEDS: Simvastatin 10 MG TAB PO SCH (21:04)
[2023-02-26] MEDS: D5 1/2 NS w/20 mEq KCL 1,000 ML IV PRN (21:08)
[2023-02-27] MEDS: D5 1/2 NS w/20 mEq KCL 1,000 ML IV PRN ×3 (00:43→08:56)
[2023-02-27 01:16] LABS: Anion Gap 10 mmol/L (10-20); BUN (Urea Nitrogen) 10 mg/dL (7.0-18.7); Calc. Creatinine Clearance 117 mL/min (70-130); Calcium 7.4 mg/dL (7.8-10.44); Carbon Dioxide 17 mmol/L (22-29); Chloride 115 mmol/L (98-107); Estimated GFR 97; Glucose 171 mg/dL (70-105); Sodium 138 mmol/L (136-145)
[2023-02-27 05:03] LABS: #Basophils 0.1 thou/uL (0.0-0.2); #Monocytes 0.9 thou/uL (0.11-0.59); #Neutrophils 9.8 thou/uL (1.40-6.50); %Basophils 0.4 % (0.0-1.0); %Eosinophils 0.3 % (0.0-10.0); %Lymphocytes 12.4 % (21.0-51.0); %Monocytes 7.1 % (0.0-10.0); %Neutrophils 78.4 % (42.0-75.0); Hematocrit 35.6 % (36.0-47.0); Hemoglobin 11.2 g/dL (12.0-16.0); Mean Corpuscular HGB CONC 31.5 g/dL (32.0-36.0); Mean Corpuscular Hemoglobin 30.3 pg (27.0-31.0); Mean Corpuscular Volume 96.2 fl (78.0-98.0); Mean Platelet Volume 12.3 fL (7.4-10.4); Platelet Count 172 10x3/uL (130-400); White Blood Cell (WBC) Count 12.5 10x3/uL (4.8-10.8)
[2023-02-27 05:27] LABS: Anion Gap 13 mmol/L (10-20); BUN (Urea Nitrogen) 10 mg/dL (7.0-18.7); Calc. Creatinine Clearance 124 mL/min (70-130); Calcium 7.5 mg/dL (7.8-10.44); Carbon Dioxide 16 mmol/L (22-29); Chloride 113 mmol/L (98-107); Estimated GFR 100; Glucose 175 mg/dL (70-105); Magnesium 2.1 mg/dL (1.6-2.6); Potassium 4.3 mmol/L (3.5-5.1); Sodium 138 mmol/L (136-145)
[2023-02-27] MEDS: FLUoxetine HCl 10 MG CAP PO SCH (08:56)
[2023-02-27] MEDS: Enoxaparin 40 MG (0.4 mL) SYRINGE SC SCH (08:56)
[2023-02-27] MEDS: BuPROPion XL 150 MG ER.TAB PO SCH (08:56)
[2023-02-27] MEDS: Multivit, Therapeutic 1 TAB PO SCH (08:57)
[2023-02-27] MEDS ORDERED: Lurasidone 40 MG TAB PO SCH (09:00)
[2023-02-27 10:01] LABS: Phosphorus 2.4 mg/dL (2.3-4.7)
[2023-02-27] MEDS ORDERED: Lurasidone 20 MG TABLET PO SCH (10:15)
[2023-02-27] MEDS ORDERED: Insulin Glargine 30 UNITS/0.3 ML VIAL SC SCH (12:48)
[2023-02-27] MEDS ORDERED: Glucagon 1 MG/ML KIT IM PRN (12:49)
[2023-02-27] MEDS ORDERED: Dextrose 5% in Water 1,000 ML IV PRN (12:49)
[2023-02-27] MEDS: HumaLOG 300 UNITS/3 ML VIAL SC SCH ×2 (15:13→18:03)
[2023-02-27] MEDS: Propranolol 10 MG TAB PO SCH ×2 (15:15→21:14)
[2023-02-27] MEDS: HumaLOG 300 UNITS/3 ML VIAL SC PRN ×2 (18:00→21:13)
[2023-02-27 20:09] LABS: Bacteria/HPF None Seen HPF (None Seen); Bilirubin Negative (Negative); Blood, Urine Negative (Negative); CAUTI Indications for Culture Alt mental st,lethar; Clarity Clear (Clear); Glucose, Urine (Dipstick) Greater than 1000 mg/dL (Negative); Ketone, Urine 150 mg/dL (Negative); Leukocyte Negative Leu/uL (Negative); Nitrite Negative (Negative); Protein, Urine (Dipstick) 10 mg/dL (Neg-Trace); RBC/HPF 0-3 HPF (0-3); Squamous Epithelial 0-3 HPF (0-3); Urobilinogen Normal mg/dL (Less than 2); WBC/HPF 0-3 HPF (0-3); Yeast-Budding 1+ HPF (None Seen)
[2023-02-27 20:12] LABS: Urine Culture Reflex No No
[2023-02-27] MEDS ORDERED: Aripiprazole 10 MG TAB PO SCH (21:00)
[2023-02-27] MEDS: Insulin Glargine 30 UNITS/0.3 ML VIAL SC SCH (21:13)
[2023-02-27] MEDS: Simvastatin 10 MG TAB PO SCH (21:14)
[2023-02-27 22:33] LABS: Critical Call Chemistry REHAB.HL@2232; Phosphorus 1.1 mg/dL (2.3-4.7)
[2023-02-28] MEDS: PHOS-NAK 1 PKT PACK PO SCH ×3 (02:20→09:14)
[2023-02-28 04:19] VITALS: TEMP 97
[2023-02-28 07:05] LABS: Anion Gap 12 mmol/L (10-20); BUN (Urea Nitrogen) 6 mg/dL (7.0-18.7); Calc. Creatinine Clearance 139 mL/min (70-130); Calcium 8.2 mg/dL (7.8-10.44); Carbon Dioxide 16 mmol/L (22-29); Chloride 110 mmol/L (98-107); Estimated GFR 116; Glucose 127 mg/dL (70-105); Potassium 3.7 mmol/L (3.5-5.1); Sodium 134 mmol/L (136-145)
[2023-02-28] MEDS: BuPROPion XL 150 MG ER.TAB PO SCH (08:24)
[2023-02-28] MEDS: FLUoxetine HCl 10 MG CAP PO SCH (08:24)
[2023-02-28] MEDS: Propranolol 10 MG TAB PO SCH (08:24)
[2023-02-28] MEDS: Insulin Glargine 30 UNITS/0.3 ML VIAL SC SCH (08:24)
[2023-02-28] MEDS: Multivit, Therapeutic 1 TAB PO SCH (08:24)
[2023-02-28] MEDS: HumaLOG 300 UNITS/3 ML VIAL SC SCH (08:25)
[2023-02-28] MEDS: Enoxaparin 40 MG (0.4 mL) SYRINGE SC SCH (08:28)
[2023-02-28] MEDS ORDERED: Lurasidone 20 MG TABLET PO SCH (09:00)
[2023-02-28 09:39] LABS: Phosphorus 2.8 mg/dL (2.3-4.7)
[2023-02-28 13:06] LABS: Actual Bicarbonate (HCO3v) 9.6 mEq/L (22-28); pH (venous) 7.198 (7.32-7.43)
== END 2023-02-28 11:26 | disposition home or self-care (01) | DRG 638 ==
LOC: ERS 13:47 → SUATTDRO 13:47 → IMCU/EMU 15:44
PROVIDERS: ADMIT Internal Medicine; ATTEND Emergency Medicine
PROC: 4A043R1 Measurement of Venous Saturation, Peripheral, Percutaneous Approach (ICD-10-PCS; principal; 2023-02-26)
DX: E11.10 Type 2 diabetes mellitus with ketoacidosis without coma (principal); N17.9 Acute kidney failure, unspecified; I10 Essential (primary) hypertension; F10.90 Alcohol use, unspecified, uncomplicated; E66.9 Obesity, unspecified; K21.9 Gastro-esophageal reflux disease without esophagitis; E11.65 Type 2 diabetes mellitus with hyperglycemia; E83.39 Other disorders of phosphorus metabolism; D72.829 Elevated white blood cell count, unspecified; F41.8 Other specified anxiety disorders; F31.9 Bipolar disorder, unspecified; Z91.148 Patient's other noncompliance with medication regimen for other reason; Z68.32 Body mass index [BMI] 32.0-32.9, adult; Z79.4 Long term (current) use of insulin; Z79.899 Other long term (current) drug therapy; Z83.3 Family history of diabetes mellitus; E78.00 Pure hypercholesterolemia, unspecified
CPT/HCPCS: 36415; 36416; 71045; 80048; 80053; 81001; 82010; 82805; 83690; 83735; 83930; 84100; 84484; 84703; 85025; 93005; 96365; J1650; J1815; J3475; J3480; J7030; J7050

== ENCOUNTER 2023-03-17 03:12 | Inpatient (IN) | payer OTHER ==
[2023-03-17] MEDS ORDERED: Ondansetron PF 4 MG/2 ML Vial ONE (03:31)
[2023-03-17 03:41] LABS: Hematocrit-VBG 46 % (36.0-47.0)
[2023-03-17 03:43] LABS: #Basophils 0.1 thou/uL (0.0-0.2); #Eosinphils 0.1 thou/uL (0.0-0.7); #Monocytes 1.3 thou/uL (0.11-0.59); #Neutrophils 10.9 thou/uL (1.40-6.50); %Basophils 0.8 % (0.0-1.0); %Eosinophils 0.6 % (0.0-10.0); %Lymphocytes 19.2 % (21.0-51.0); %Neutrophils 68.3 % (42.0-75.0); Hemoglobin 14.7 g/dL (12.0-16.0); Mean Corpuscular Hemoglobin 29.7 pg (27.0-31.0); Mean Corpuscular Volume 92.9 fl (78.0-98.0); Mean Platelet Volume 11.8 fL (7.4-10.4); Platelet Count 514 10x3/uL (130-400); RBC Distribution Width 14.9 % (11.5-14.5); Red Blood Cell (RBC) Count 4.95 mill/uL (4.20-5.40)
[2023-03-17 03:48] LABS: Chloride (VBG) 96 mmol/L (98-106); Sodium 136 mmol/L (133-146)
[2023-03-17 03:50] LABS: Actual Bicarbonate (HCO3v) 8.3 mEq/L (22-28); Base Excess -17.9 mEq/L (-2.0 to +3.0); Hemoglobin (Hb) 15.7 g/dL (11.7-15.5); pH (venous) 7.185 (7.32-7.43)
[2023-03-17 03:51] LABS: Calcium, Ionized (venous) 1.26 mmol/L (1.16-1.32); Potassium (VBG) 4.55 mmol/L (3.70-5.30)
[2023-03-17 03:54] LABS: BHCG - Serum Negative (NEGATIVE); Pregs Control Background? CLEAR/WHITE (CLR/WHITE); Pregs Control Bar Appear? YES (CONTROL BAR)
[2023-03-17 04:07] LABS: Troponin I Less than 0.010 ng/mL (< 0.028)
[2023-03-17 04:09] LABS: ALT (SGPT) 45 U/L (8-55); AST (SGOT) 18 U/L (5-34); Albumin 4.9 g/dL (3.5-5.0); Alkaline Phosphatase 144 U/L (40-110); BUN (Urea Nitrogen) 25 mg/dL (7.0-18.7); Bilirubin, Total 0.5 mg/dL (0.2-1.2); Calc. Creatinine Clearance 0 mL/min (70-130); Chloride 96 mmol/L (98-107); Estimated GFR 40; Globulin 3.4 g/dL (2.4-3.5); Lipase 17 U/L (8-78); Magnesium 2.4 mg/dL (1.6-2.6); Phosphorus 5.4 mg/dL (2.3-4.7); Protein, Total 8.3 g/dL (6.0-8.3); Sodium 132 mmol/L (136-145)
[2023-03-17 04:15] LABS: Carbon Dioxide Less than 8 mmol/L (22-29); Glucose 617 mg/dL (70-105)
[2023-03-17] MEDS ORDERED: INSULIN REGULAR IN 0.9 % NACL 100 UNITS/100 ML BAG ONE (04:23)
[2023-03-17] MEDS ORDERED: Insulin Regular 300 UNITS/3 ML VIAL ONE (04:23)
[2023-03-17 04:46] LABS: Influenza A by NAA Not Detected (NotDetected); Influenza B by NAA Not Detected (NotDetected); SARS-CoV-2 NAA Rapid Test Not Detected (NotDetected)
[2023-03-17 05:10] LABS: Bacteria/HPF None Seen HPF (None Seen); Bilirubin Negative (Negative); Blood, Urine 1+ (Negative); CAUTI Indications for Culture Pelvic or flank pain; Clarity Clear (Clear); Glucose, Urine (Dipstick) Greater than 1000 mg/dL (Negative); Ketone, Urine Greater than 150 mg/dL (Negative); Leukocyte Negative Leu/uL (Negative); Nitrite Negative (Negative); Protein, Urine (Dipstick) Negative (Neg-Trace); RBC/HPF 0-3 HPF (0-3); Specific Gravity, Urine 1.026 (1.002-1.036); Urobilinogen Normal mg/dL (Less than 2); WBC/HPF 0-3 HPF (0-3)
[2023-03-17 05:12] LABS: Urine Culture Reflex No No
[2023-03-17 05:15] VITALS: BMI 29.9
[2023-03-17] MEDS: Sodium Chloride 0.9% 1,000 ML IV SCH ×2 (06:13→10:21)
[2023-03-17] MEDS ORDERED: Ondansetron PF 4 MG/2 ML Vial IVP PRN (06:23)
[2023-03-17] MEDS ORDERED: Acetaminophen 325 MG TAB PO PRN (06:23)
[2023-03-17] MEDS ORDERED: Sodium Chloride 0.9% 1,000 ML IV PRN ×4 (06:37)
[2023-03-17] MEDS ORDERED: D5 1/2 NS w/20 mEq KCL 1,000 ML IV PRN (06:37)
[2023-03-17] MEDS ORDERED: Dextrose 50% Abboject 50 ML SYRINGE SLOW IVP PRN ×2 (06:37→18:54)
[2023-03-17] MEDS ORDERED: NS 0.9% w/ 20 MEQ KCL 1,000 ML IV PRN ×2 (06:37)
[2023-03-17] MEDS ORDERED: Electrolyte Replacement Protocol 1 EACH IVPB SCH (06:37)
[2023-03-17] MEDS ORDERED: HUMULIN R 100 UNITS in Sodium Chloride 0.9% 100 ML IVPB SCH (06:45)
[2023-03-17 06:53] LABS: Hemoglobin A1c 11.3 % (4.0-6.0)
[2023-03-17] MEDS: Dextrose 5 %-0.45 % NaCl 1,000 ML IV PRN (08:27)
[2023-03-17 08:30] LABS: Anion Gap 22 mmol/L (10-20); BUN (Urea Nitrogen) 17 mg/dL (7.0-18.7); Calc. Creatinine Clearance 82 mL/min (70-130); Calcium 8.1 mg/dL (7.8-10.44); Carbon Dioxide 8 mmol/L (22-29); Chloride 107 mmol/L (98-107); Estimated GFR 67; Glucose 178 mg/dL (70-105); Phosphorus 2.2 mg/dL (2.3-4.7); Potassium 3.8 mmol/L (3.5-5.1); Sodium 133 mmol/L (136-145)
[2023-03-17] MEDS: Enoxaparin 40 MG (0.4 mL) SYRINGE SC SCH (10:20)
[2023-03-17 13:37] LABS: Anion Gap 13 mmol/L (10-20); BUN (Urea Nitrogen) 15 mg/dL (7.0-18.7); Calc. Creatinine Clearance 105 mL/min (70-130); Calcium 7.7 mg/dL (7.8-10.44); Carbon Dioxide 15 mmol/L (22-29); Chloride 107 mmol/L (98-107); Estimated GFR 91; Glucose 145 mg/dL (70-105); Potassium 3.5 mmol/L (3.5-5.1); Sodium 131 mmol/L (136-145)
[2023-03-17 18:41] LABS: Anion Gap 10 mmol/L (10-20); BUN (Urea Nitrogen) 11 mg/dL (7.0-18.7); Calc. Creatinine Clearance 115 mL/min (70-130); Calcium 7.6 mg/dL (7.8-10.44); Carbon Dioxide 17 mmol/L (22-29); Chloride 107 mmol/L (98-107); Estimated GFR 100; Glucose 149 mg/dL (70-105); Potassium 3.4 mmol/L (3.5-5.1); Sodium 131 mmol/L (136-145)
[2023-03-17] MEDS ORDERED: Dextrose 5% in Water 1,000 ML IV PRN (18:54)
[2023-03-17] MEDS ORDERED: Glucagon 1 MG/ML KIT IM PRN (18:54)
[2023-03-17] MEDS: Insulin Glargine 30 UNITS/0.3 ML VIAL SC SCH (20:25)
[2023-03-17] MEDS: Potassium Chloride 20 MEQ TAB PO SCH (21:57)
[2023-03-18] MEDS: HumaLOG 300 UNITS/3 ML VIAL SC PRN (06:04)
[2023-03-18 06:06] LABS: #Basophils 0.1 thou/uL (0.0-0.2); #Eosinphils 0.2 thou/uL (0.0-0.7); #Monocytes 0.7 thou/uL (0.11-0.59); #Neutrophils 5.7 thou/uL (1.40-6.50); %Basophils 0.6 % (0.0-1.0); %Eosinophils 1.9 % (0.0-10.0); %Lymphocytes 19.1 % (21.0-51.0); %Monocytes 8.9 % (0.0-10.0); %Neutrophils 68.1 % (42.0-75.0); Mean Corpuscular HGB CONC 33.6 g/dL (32.0-36.0); Mean Corpuscular Hemoglobin 30.3 pg (27.0-31.0); Mean Corpuscular Volume 90.2 fl (78.0-98.0); Platelet Count 351 10x3/uL (130-400); Red Blood Cell (RBC) Count 3.79 mill/uL (4.20-5.40); White Blood Cell (WBC) Count 8.3 10x3/uL (4.8-10.8)
[2023-03-18 06:16] LABS: Hematocrit 34.2 % (36.0-47.0); Hemoglobin 11.5 g/dL (12.0-16.0)
[2023-03-18 06:30] LABS: Anion Gap 12 mmol/L (10-20); BUN (Urea Nitrogen) 8 mg/dL (7.0-18.7); Calc. Creatinine Clearance 107 mL/min (70-130); Calcium 8.4 mg/dL (7.8-10.44); Carbon Dioxide 21 mmol/L (22-29); Chloride 105 mmol/L (98-107); Estimated GFR 92; Glucose 303 mg/dL (70-105); Sodium 134 mmol/L (136-145)
[2023-03-18] MEDS: FLU VACC QS2023-24(6MOS UP)/PF 60 MCG/0.5 ML SYRINGE IM ONE (08:52)
[2023-03-18 09:24] LABS: Phosphorus 1.6 mg/dL (2.3-4.7)
[2023-03-18] MEDS: Sodium Phosphate 30 MMOL in Sodium Chloride 0.9% 250 ML 250 ML IVPB SCH (10:43)
[2023-03-18] MEDS: Insulin Glargine 30 UNITS/0.3 ML VIAL SC SCH ×2 (10:44→21:34)
[2023-03-18 10:55] LABS: Phosphorus 1.4 mg/dL (2.3-4.7)
[2023-03-18] MEDS: HumaLOG 300 UNITS/3 ML VIAL SC SCH (11:50)
[2023-03-19 03:32] VITALS: TEMP 98.4
[2023-03-19 06:11] LABS: #Basophils 0.1 thou/uL (0.0-0.2); #Eosinphils 0.2 thou/uL (0.0-0.7); #Monocytes 0.7 thou/uL (0.11-0.59); #Neutrophils 2.7 thou/uL (1.40-6.50); %Basophils 1.1 % (0.0-1.0); %Eosinophils 3.4 % (0.0-10.0); %Lymphocytes 33.7 % (21.0-51.0); %Monocytes 12.8 % (0.0-10.0); %Neutrophils 48.1 % (42.0-75.0); Hematocrit 33.7 % (36.0-47.0); Hemoglobin 11.1 g/dL (12.0-16.0); Mean Corpuscular HGB CONC 32.9 g/dL (32.0-36.0); Mean Corpuscular Hemoglobin 29.5 pg (27.0-31.0); Mean Corpuscular Volume 89.6 fl (78.0-98.0); Platelet Count 319 10x3/uL (130-400); RBC Distribution Width 14.7 % (11.5-14.5); Red Blood Cell (RBC) Count 3.76 mill/uL (4.20-5.40); White Blood Cell (WBC) Count 5.6 10x3/uL (4.8-10.8)
[2023-03-19 06:33] LABS: Phosphorus 2.6 mg/dL (2.3-4.7)
[2023-03-19 06:38] LABS: Anion Gap 10 mmol/L (10-20); BUN (Urea Nitrogen) 7 mg/dL (7.0-18.7); Calc. Creatinine Clearance 176 mL/min (70-130); Calcium 8.3 mg/dL (7.8-10.44); Carbon Dioxide 24 mmol/L (22-29); Chloride 107 mmol/L (98-107); Estimated GFR 127; Glucose 135 mg/dL (70-105); Potassium 3.1 mmol/L (3.5-5.1); Sodium 138 mmol/L (136-145)
[2023-03-19] MEDS: Potassium Chloride 20 MEQ TAB PO SCH (08:03)
[2023-03-19 08:28] VITALS: BP 136/91
[2023-03-19] MEDS ORDERED: Simvastatin 10 MG TAB PO SCH (21:00)
== END 2023-03-19 14:08 | disposition home or self-care (01) | DRG 638 ==
LOC: ERS 03:12 → ERHOLD 04:57 → IMCU/EMU 10:17 → T4-B 03-18 12:57
PROVIDERS: ADMIT Internal Medicine; ATTEND Family Medicine
DX: E10.10 Type 1 diabetes mellitus with ketoacidosis without coma (principal); N17.9 Acute kidney failure, unspecified; Z79.899 Other long term (current) drug therapy; Z79.4 Long term (current) use of insulin; E78.00 Pure hypercholesterolemia, unspecified; I10 Essential (primary) hypertension; F32.A Depression, unspecified; K21.9 Gastro-esophageal reflux disease without esophagitis; Z83.3 Family history of diabetes mellitus; Z11.52 Encounter for screening for COVID-19; D72.829 Elevated white blood cell count, unspecified; E83.39 Other disorders of phosphorus metabolism; E78.5 Hyperlipidemia, unspecified; F39 Unspecified mood [affective] disorder
CPT/HCPCS: 36415; 36416; 71045; 80048; 80053; 81001; 82010; 82805; 83036; 83690; 83735; 84100; 84484; 84703; 85025; 90471; 90686; 93005; 96361; 96374; 96375; G0008; J1650; J1815; J2405; J7042; J7050

== ENCOUNTER 2023-07-04 17:22 | Inpatient (IN) | payer OTHER ==
[2023-07-04] MEDS ORDERED: Ondansetron PF 4 MG/2 ML Vial ONE (17:58)
[2023-07-04 18:00] LABS: #Basophils 0.11 10x3/uL (0.0-0.2); #Eosinphils Less than 0.03 10x3/uL (0.0-0.7); %Basophils 0.6 % (0.0-1.0); %Eosinophils 0.1 % (0.0-10.0); %Lymphocytes 7.3 % (21.0-51.0); %Neutrophils 87.7 % (42.0-75.0); Hematocrit 45.7 % (36.0-47.0); Hemoglobin 15.2 g/dL (12.0-16.0); Mean Corpuscular HGB CONC 33.3 g/dL (32.0-36.0); Mean Corpuscular Hemoglobin 30.2 pg (27.0-31.0); Mean Corpuscular Volume 90.7 fL (78.0-98.0); Mean Platelet Volume 12.1 fL (7.4-10.4); Platelet Count 329 10x3/uL (130-400); RBC Distribution Width 13.4 % (11.5-14.5); Red Blood Cell (RBC) Count 5.04 mill/uL (4.20-5.40)
[2023-07-04] MEDS ORDERED: Insulin Regular, Human 100 UNIT/ML 10 ML VIAL ONE (18:00)
[2023-07-04 18:09] LABS: BHCG - Serum Negative (NEGATIVE); Pregs Control Background? CLEAR/WHITE (CLR/WHITE); Pregs Control Bar Appear? YES (CONTROL BAR)
[2023-07-04 18:12] LABS: Base Excess -18.9 mEq/L (-2.0 to +3.0); Calcium, Ionized (venous) 1.21 mmol/L (1.16-1.32); Chloride (VBG) 102 mmol/L (98-106); Hematocrit-VBG 47 % (36.0-47.0); Hemoglobin (Hb) 15.9 g/dL (11.7-15.5); Potassium (VBG) 5.37 mmol/L (3.70-5.30); Sodium 139 mmol/L (133-146)
[2023-07-04 18:14] LABS: Actual Bicarbonate (HCO3v) 8.7 mEq/L (22-28); pH (venous) 7.128 (7.32-7.43)
[2023-07-04 18:19] LABS: Phosphorus 4.3 mg/dL (2.3-4.7)
[2023-07-04 18:24] LABS: ALT (SGPT) 19 U/L (8-55); AST (SGOT) 15 U/L (5-34); Albumin 4.1 g/dL (3.5-5.0); Alkaline Phosphatase 103 U/L (40-110); Anion Gap 29 mmol/L (10-20); BUN (Urea Nitrogen) 17 mg/dL (7.0-18.7); Bilirubin, Total 0.5 mg/dL (0.2-1.2); Calc. Creatinine Clearance 0 mL/min (70-130); Calcium 9.3 mg/dL (7.8-10.44); Carbon Dioxide 8 mmol/L (22-29); Chloride 102 mmol/L (98-107); Estimated GFR 50; Globulin 4.2 g/dL (2.4-3.5); Glucose 620 mg/dL (70-105); Lipase 11 U/L (8-78); Magnesium 2.1 mg/dL (1.6-2.6); Potassium 5.2 mmol/L (3.5-5.1); Protein, Total 8.3 g/dL (6.0-8.3); Sodium 134 mmol/L (136-145)
[2023-07-04 19:07] LABS: Bacteria/HPF None Seen HPF (None Seen); Bilirubin Negative (Negative); Blood, Urine 3+ (Negative); CAUTI Indications for Culture Dysuria,urgency,freq; Clarity Clear (Clear); Glucose, Urine (Dipstick) Greater than 1000 mg/dL (Negative); Ketone, Urine Greater than 150 mg/dL (Negative); Leukocyte Negative Leu/uL (Negative); Nitrite Negative (Negative); Protein, Urine (Dipstick) 10 mg/dL (Neg-Trace); Specific Gravity, Urine 1.029 (1.002-1.036); Squamous Epithelial 0-3 HPF (0-3); Urobilinogen Normal mg/dL (Less than 2); WBC/HPF 0-3 HPF (0-3)
[2023-07-04 19:14] LABS: Urine Culture Reflex No No
[2023-07-04] MEDS ORDERED: Acetaminophen 325 MG TAB PO PRN (19:42)
[2023-07-04] MEDS ORDERED: Sodium Chloride 0.9% 1,000 ML IV PRN ×3 (19:42)
[2023-07-04] MEDS ORDERED: Dextrose 50% Abboject 50 ML SYRINGE SLOW IVP PRN (19:42)
[2023-07-04] MEDS ORDERED: Ondansetron PF 4 MG/2 ML Vial IVP PRN (19:42)
[2023-07-04] MEDS ORDERED: Ondansetron ODT 4 MG TAB PO PRN (19:42)
[2023-07-04] MEDS ORDERED: NS 0.9% w/ 20 MEQ KCL 1,000 ML IV PRN ×2 (19:42)
[2023-07-04] MEDS ORDERED: Acetaminophen 650 MG Suppository PR PRN (19:42)
[2023-07-04] MEDS ORDERED: INSULIN REGULAR IN 0.9 % NACL 100 UNITS/100 ML BAG ONE (19:52)
[2023-07-04] MEDS ORDERED: Electrolyte Replacement Protocol FS PRN (20:15)
[2023-07-04] MEDS: Electrolyte Replacement Protocol 1 EACH IVPB ONE (21:18)
[2023-07-04 21:24] VITALS: BMI 32.9
[2023-07-04 21:44] LABS: Anion Gap 28 mmol/L (10-20); BUN (Urea Nitrogen) 16 mg/dL (7.0-18.7); Calc. Creatinine Clearance 81 mL/min (70-130); Calcium 8.6 mg/dL (7.8-10.44); Carbon Dioxide Less than 8 mmol/L (22-29); Chloride 110 mmol/L (98-107); Estimated GFR 59; Glucose 339 mg/dL (70-105); Potassium 5.4 mmol/L (3.5-5.1); Sodium 138 mmol/L (136-145)
[2023-07-04] MEDS: Dextrose 5 %-0.45 % NaCl 1,000 ML IV PRN (23:00)
[2023-07-05 01:22] LABS: Anion Gap 19 mmol/L (10-20); BUN (Urea Nitrogen) 13 mg/dL (7.0-18.7); Calc. Creatinine Clearance 93 mL/min (70-130); Calcium 8.6 mg/dL (7.8-10.44); Carbon Dioxide 11 mmol/L (22-29); Chloride 113 mmol/L (98-107); Estimated GFR 70; Glucose 147 mg/dL (70-105); Potassium 4.2 mmol/L (3.5-5.1); Sodium 139 mmol/L (136-145)
[2023-07-05] MEDS: D5 1/2 NS w/20 mEq KCL 1,000 ML IV PRN (01:28)
[2023-07-05 04:26] LABS: #Basophils 0.09 10x3/uL (0.0-0.2); %Basophils 0.5 % (0.0-1.0); %Eosinophils 0.2 % (0.0-10.0); %Monocytes 9.6 % (0.0-10.0); %Neutrophils 74.2 % (42.0-75.0); Hematocrit 36.6 % (36.0-47.0); Mean Corpuscular HGB CONC 32.8 g/dL (32.0-36.0); Mean Corpuscular Volume 91.5 fL (78.0-98.0); Mean Platelet Volume 11.5 fL (7.4-10.4); Platelet Count 286 10x3/uL (130-400); RBC Distribution Width 13.6 % (11.5-14.5)
[2023-07-05 04:39] LABS: Anion Gap 13 mmol/L (10-20); BUN (Urea Nitrogen) 11 mg/dL (7.0-18.7); Calc. Creatinine Clearance 116 mL/min (70-130); Calcium 7.8 mg/dL (7.8-10.44); Carbon Dioxide 12 mmol/L (22-29); Chloride 112 mmol/L (98-107); Estimated GFR 91; Glucose 167 mg/dL (70-105); Potassium 4.2 mmol/L (3.5-5.1); Sodium 133 mmol/L (136-145)
[2023-07-05 08:07] LABS: Anion Gap 12 mmol/L (10-20); BUN (Urea Nitrogen) 9 mg/dL (7.0-18.7); Calc. Creatinine Clearance 131 mL/min (70-130); Calcium 7.5 mg/dL (7.8-10.44); Carbon Dioxide 13 mmol/L (22-29); Chloride 111 mmol/L (98-107); Estimated GFR 105; Glucose 208 mg/dL (70-105); Sodium 132 mmol/L (136-145)
[2023-07-05] MEDS ORDERED: Dextrose 5% in Water 1,000 ML IV PRN (10:41)
[2023-07-05] MEDS ORDERED: Dextrose 50% Abboject 50 ML SYRINGE SLOW IVP PRN (10:41)
[2023-07-05] MEDS ORDERED: HumaLOG 300 UNITS/3 ML VIAL SC PRN (10:41)
[2023-07-05] MEDS ORDERED: Glucagon 1 MG/ML KIT IM PRN (10:41)
[2023-07-05] MEDS: Insulin Glargine 30 UNITS/0.3 ML VIAL SC SCH ×2 (11:24→20:33)
[2023-07-05 11:58] LABS: Anion Gap 12 mmol/L (10-20); BUN (Urea Nitrogen) 7 mg/dL (7.0-18.7); Calc. Creatinine Clearance 138 mL/min (70-130); Calcium 7.7 mg/dL (7.8-10.44); Carbon Dioxide 14 mmol/L (22-29); Chloride 110 mmol/L (98-107); Estimated GFR 112; Glucose 231 mg/dL (70-105); Potassium 3.9 mmol/L (3.5-5.1); Sodium 132 mmol/L (136-145)
[2023-07-05] MEDS: Insulin Reg, Human 100 UNITS in Sodium Chloride 0.9% 100 ML IVPB SCH (13:51)
[2023-07-05] MEDS: HumaLOG 300 UNITS/3 ML VIAL SC SCH (15:46)
[2023-07-05 17:36] LABS: Anion Gap 10 mmol/L (10-20); BUN (Urea Nitrogen) 5 mg/dL (7.0-18.7); Calc. Creatinine Clearance 144 mL/min (70-130); Calcium 7.8 mg/dL (7.8-10.44); Carbon Dioxide 16 mmol/L (22-29); Chloride 110 mmol/L (98-107); Estimated GFR 118; Glucose 235 mg/dL (70-105); Sodium 132 mmol/L (136-145)
[2023-07-05] MEDS: HumaLOG 300 UNITS/3 ML VIAL SC PRN (18:21)
[2023-07-05 19:48] LABS: Anion Gap 15 mmol/L (10-20); BUN (Urea Nitrogen) 4 mg/dL (7.0-18.7); Calc. Creatinine Clearance 144 mL/min (70-130); Calcium 8.4 mg/dL (7.8-10.44); Carbon Dioxide 11 mmol/L (22-29); Chloride 111 mmol/L (98-107); Estimated GFR 118; Glucose 289 mg/dL (70-105); Potassium 4.4 mmol/L (3.5-5.1); Sodium 133 mmol/L (136-145)
[2023-07-05] MEDS: Simvastatin 10 MG TAB PO SCH (20:32)
[2023-07-05] MEDS: hydrOXYzine Pamoate 25 mg Capsule PO SCH (20:33)
[2023-07-06 05:21] VITALS: TEMP 97.5
[2023-07-06 06:13] LABS: #Basophils 0.04 10x3/uL (0.0-0.2); %Basophils 0.5 % (0.0-1.0); %Eosinophils 1.8 % (0.0-10.0); %Lymphocytes 33.5 % (21.0-51.0); %Monocytes 6.2 % (0.0-10.0); %Neutrophils 57.4 % (42.0-75.0); Hematocrit 37.7 % (36.0-47.0); Hemoglobin 12.6 g/dL (12.0-16.0); Mean Corpuscular HGB CONC 33.4 g/dL (32.0-36.0); Mean Corpuscular Hemoglobin 29.7 pg (27.0-31.0); Mean Corpuscular Volume 88.9 fL (78.0-98.0); Mean Platelet Volume 11.4 fL (7.4-10.4); Platelet Count 250 10x3/uL (130-400); RBC Distribution Width 13.5 % (11.5-14.5); Red Blood Cell (RBC) Count 4.24 mill/uL (4.20-5.40)
[2023-07-06 06:26] LABS: Anion Gap 13 mmol/L (10-20); BUN (Urea Nitrogen) 6 mg/dL (7.0-18.7); Calc. Creatinine Clearance 155 mL/min (70-130); Calcium 8.4 mg/dL (7.8-10.44); Carbon Dioxide 18 mmol/L (22-29); Chloride 108 mmol/L (98-107); Estimated GFR 120; Glucose 192 mg/dL (70-105); Potassium 3.3 mmol/L (3.5-5.1); Sodium 136 mmol/L (136-145)
[2023-07-06] MEDS: Potassium Chloride 20 MEQ TAB PO SCH ×2 (09:33→12:10)
[2023-07-06] MEDS: FLUoxetine HCl 20 MG CAP PO SCH (09:33)
== END 2023-07-06 14:20 | disposition home or self-care (01) | DRG 639 ==
LOC: ERS 17:22 → IMCU/EMU 19:18
PROVIDERS: ADMIT Student in an Organized Health Care Education/Training Program; ATTEND Hospitalist
DX: E10.10 Type 1 diabetes mellitus with ketoacidosis without coma (principal); I10 Essential (primary) hypertension; E78.5 Hyperlipidemia, unspecified; D72.829 Elevated white blood cell count, unspecified; E87.5 Hyperkalemia; Z79.899 Other long term (current) drug therapy; Z79.4 Long term (current) use of insulin
CPT/HCPCS: 36415; 36416; 80048; 80053; 81001; 82010; 82805; 83690; 83735; 84100; 84703; 85025; 87086; 93005; J1815; J2405; J3480; J3490; J7042; J7050; Q0177

== ENCOUNTER 2024-10-18 19:40 | Emergency (ER) | payer MEDICAID ==
[2024-10-19] MEDS ORDERED: Ibuprofen 800 MG TAB ONE (00:57)
== END 2024-10-19 01:01 | disposition home or self-care (01) ==
LOC: ERS 19:40
DX: S93.501A Unspecified sprain of right great toe, initial encounter (principal); E10.9 Type 1 diabetes mellitus without complications; W22.8XXA Striking against or struck by other objects, initial encounter
CPT/HCPCS: 99283

== ENCOUNTER 2024-11-19 19:40 | Emergency (ER) | payer MEDICAID ==
[2024-11-19 20:01] LABS: #Basophils 0.07 10x3/uL (0.0-0.2); #Eosinophils 0.10 10x3/uL (0.0-0.7); #Monocytes 0.48 10x3/uL (0.11-0.59); #Neutrophils 6.13 10x3/uL (1.40-6.50); %Basophils 0.8 % (0.0-1.0); %Eosinophils 1.2 % (0.0-10.0); %Lymphocytes 19.4 % (21.0-51.0); %Monocytes 5.7 % (0.0-10.0); %Neutrophils 72.4 % (42.0-75.0); Hematocrit 44.0 % (36.0-47.0); Hemoglobin 14.5 g/dL (12.0-16.0); Mean Corpuscular Hemoglobin 31.0 pg (27.0-31.0); Mean Corpuscular Volume 94.0 fL (78.0-98.0); Platelet Count 280 10x3/uL (130-400); Red Blood Cell (RBC) Count 4.68 mill/uL (4.20-5.40); White Blood Cell (WBC) Count 8.46 10x3/uL (4.8-10.8)
[2024-11-19 20:19] LABS: Actual Bicarbonate (HCO3v) 24.7 mEq/L (22-28); Base Excess -0.9 mEq/L (-2.0 to +3.0); Calcium, Ionized (venous) 1.18 mmol/L (1.16-1.32); Chloride (VBG) 99 mmol/L (98-106); Hematocrit-VBG 46 % (36.0-47.0); Hemoglobin (Hb) 15.8 g/dL (11.7-15.5); Potassium (VBG) 4.26 mmol/L (3.70-5.30); Sodium 138 mmol/L (133-146)
[2024-11-19 20:46] LABS: CAUTI Indications for Culture Dysuria,urgency,freq; Glucose, Urine (Dipstick) Greater than 1000 mg/dL (Negative); Leukocyte Negative Leu/uL (Negative); Protein, Urine (Dipstick) Negative (Neg-Trace); RBC/HPF 0-3 HPF (0-3); Specific Gravity, Urine 1.028 (1.002-1.036); WBC/HPF None Seen HPF (0-3)
[2024-11-19 20:51] LABS: Bacteria/HPF None Seen HPF (None Seen)
[2024-11-19 20:52] LABS: Urine Culture Reflex No No
[2024-11-19 21:34] LABS: ALT (SGPT) 16 U/L (Less than 34); AST (SGOT) 22 U/L (11-34); Albumin 3.7 g/dL (3.1-4.5); Alkaline Phosphatase 87 U/L (40-110); Anion Gap 14 mmol/L (10-20); BUN (Urea Nitrogen) 14 mg/dL (7.0-18.7); Bilirubin, Total 0.4 mg/dL (0.3-1.2); Calc. Creatinine Clearance 0 mL/min (70-130); Calcium 9.3 mg/dL (7.8-10.44); Carbon Dioxide 25 mmol/L (22-29); Chloride 102 mmol/L (98-107); Globulin 3.1 g/dL (2.4-3.5); Glucose 519 mg/dL (70-105); Potassium 4.1 mmol/L (3.5-5.1); Sodium 137 mmol/L (136-145)
== END 2024-11-19 22:40 | disposition home or self-care (01) ==
LOC: ERS 19:40
DX: E10.65 Type 1 diabetes mellitus with hyperglycemia (principal)
CPT/HCPCS: 36415; 36416; 80053; 81001; 82010; 82805; 85025; 93005; 96374; J1815